=== PATIENT | male | born 1955 | race Caucasian/White ===

== ENCOUNTER 2017-09-13 20:33 | Inpatient (IN) ==
--- NOTE | 2017-09-13 20:48 | Emergency Department Note ---
SOB HPI - General Chief Complaint: Shortness of Breath/Dyspnea Stated Complaint: sob Time Seen by Provider: 09/13/17 20:43 Source: EMS Mode of arrival: EMS - History of Present Illness This patient has severe chronic COPD oxygen dependent and on BiPAP all the time. He is a DNR and has been short of breath recently and unable to speak. In the emergency room his O2 saturation is 100% on a mask. He cannot talk to me or give me any history. - Related Data Home Medications Medication Instructions Recorded Confirmed Acetaminophen [Tylenol Extra 1,000 mg PO Q6H PRN 10/02/15 09/13/17 Strength] Baclofen [Lioresal] 10 mg PO TID 10/02/15 09/13/17 Bisacodyl [Dulcolax] 10 mg MO DAILYP PRN 10/02/15 09/13/17 Carvedilol [Coreg] 12.5 mg PO BIDCC 10/02/15 09/13/17 DULoxetine HCL [Cymbalta] 60 mg PO QHS 10/02/15 09/13/17 Docusate Sodium [Colace] 100 mg PO BID 10/02/15 09/13/17 Furosemide [Lasix] 40 mg PO BID 10/02/15 09/13/17 Gabapentin 600 mg PO TID 10/02/15 09/13/17 Insulin Aspart [Novolog] 1 unit SQ .COMPLEX 10/02/15 09/13/17 Insulin Detemir [Levemir] 50 unit SQ QAM 10/02/15 09/13/17 Liraglutide [Victoza 2-Rico] 1.8 mg SC DAILY 10/02/15 09/13/17 Lisinopril [Zestril] 10 mg PO DAILY 10/02/15 09/13/17 Na Phos,M-B/Na Phos,Di-Ba [Fleets 1 dose MO DAILYP PRN 10/02/15 09/13/17 Adult] Polyethylene Glycol 3350 [Miralax] 17 gm PO DAILYP PRN 10/02/15 09/13/17 Potassium Chloride 10 meq PO DAILY 10/02/15 09/13/17 Sucralfate [Carafate] 2 gm PO BID 10/02/15 09/13/17 Travoprost Ophth Drops [Travatan Z 1 gtt OU HS 10/02/15 09/13/17 Ophth Drops] metFORMIN HCL [Fortamet] 1,000 mg PO BID 10/02/15 09/13/17 morphine SULFATE [Morphine Sulfate] 30 mg PO BID 10/02/15 09/13/17 Sennosides [Senna Laxative] 8.6 mg PO BID 01/21/16 09/13/17 Aspirin [Donna Chewable Aspirin] 81 mg PO DAILY 09/13/17 09/13/17 Budesonide [Pulmicort] 0.5 mg NEB BID 09/13/17 09/13/17 Finasteride [Proscar] 5 mg PO DAILY 09/13/17 09/13/17 HYDROcodone/APAP 5/325MG [[place] 1 - 2 tab PO PRN PRN 09/13/17 09/13/17 5-325Mg] Ipratropium/Albuterol [Duoneb] 3 ml NEB Q6HRT 09/13/17 09/13/17 Magnesium Hydroxide [Milk of 30 ml PO DAILYP PRN 09/13/17 09/13/17 Magnesia] Modafinil [Provigil] 200 mg PO DAILY 09/13/17 09/13/17 Montelukast [Singular] 10 mg PO HS 09/13/17 09/13/17 Na Phos,M-B/Na Phos,Di-Ba [Fleets 1 dose MO DAILYP PRN 09/13/17 09/13/17 Adult] Symbicort 160-4.5 Mcg Inhaler 2 puff PO BID 09/13/17 09/13/17 Tamsulosin [Flomax] 0.4 mg PO HS 09/13/17 09/13/17 acetaZOLAMIDE [Acetazolamide] 250 mg PO BID 09/13/17 09/13/17 traZODone HCL [Trazodone HCl] 50 mg PO HS 09/13/17 09/13/17 Allergies Allergy/AdvReac Type Severity Reaction Status Date / Time brimonidine AdvReac Verified 09/13/17 22:10 gentamicin AdvReac Verified 09/13/17 22:10 Review of Systems Limitations: ROS unobtainable due to patients medical condition Past Medical History - Past Medical History [facility] Narrative: Medical History Lumbar disc disease with radiculopathy (Chronic) Medical history: Reports: arthritis, CHF, COPD, coronary artery disease, DM, glaucoma, hyperlipidemia, hypertension Surgical history ED: Reports: appendectomy - Social History smoking status: Former smoker Physical Exam Limitations: altered mental status, physical limitation Head: atraumatic Eye: Present: normal appearance ENT: normal exam Neck: Present: normal inspection Chest: Present: normal inspection Respiratory: Present: other (Decreased breath sounds in general) Cardiovascular: Present: regular rate, normal rhythm, normal heart sounds Abdominal: Present: soft. Absent: distention, tenderness Skin: Present: warm, dry, intact Course Vital Signs Temperature 98.2 F 09/13/17 20:34 Pulse Rate 91 H 09/13/17 20:34 Respiratory Rate 20 09/13/17 20:34 Blood Pressure 168/73 09/13/17 20:34 Pulse Oximetry (%) 100 09/13/17 20:34 Temperature 98.2 F 09/13/17 20:34 Pulse Rate 91 H 09/13/17 20:34 Respiratory Rate 14 09/13/17 20:45 Blood Pressure 168/73 09/13/17 20:34 Pulse Oximetry (%) 100 09/13/17 20:34 Shortness of Breath/Dyspnea - [facility] Narrative Medical decision making narrative: This patient's PCO2 was 97 pH 7.2 PO2 143. We have started him on BiPAP. His chest x-ray is extremely difficult to read due to cardiomegaly that may show some infiltrates so I have started some antibiotics. Also given Solu-Medrol and a DuoNeb treatment. He will be admitted to the telemetry floor. He is a DNR patient. - Lab Data Lab results reviewed: Yes I reviewed the patient's lab results. Result diagrams: 09/13/17 20:55 09/13/17 20:55 Lab Results 09/13/17 09/13/17 09/13/17 Range/Units 20:55 20:55 20:55 WBC 12.5 H (4.5-11.0) K/mcL RBC 4.17 L (4.50-5.90) M/mcL Hgb 12.0 L (13.5-16.5) g/dL Hct 38.7 L (41.0-55.0) % MCV 92.8 (80.0-100.0) fL MCH 28.7 (26.0-34.0) pg MCHC 31.0 (31.0-36.0) g/dL RDW 17.1 H (11.5-14.5) % Plt Count 229 (140-440) K/mcL MPV 7.8 (7.4-10.4) fL Gran % 81.2 H (38.0-78.0) % Lymph % (Auto) 10.2 L (15.5-49.0) % [place] % (Auto) 7.3 (1.0-12.0) % Eos % (Auto) 1.0 (0.0-7.0) % Baso % (Auto) 0.3 (0.0-2.0) % Gran # 10.1 H (1.8-8.0) K/mcL Lymph # (Auto) 1.3 L (1.5-4.8) K/mcL [place] # (Auto) 0.9 (0.1-0.9) K/mcL Eos # (Auto) 0.1 (0.0-0.7) K/mcL Baso # (Auto) 0 (0.0-0.3) K/mcL VBG Lactic Acid 0.9 (0.5-2.2) mmol/L Sodium 135 (133-145) mmol/L Potassium 4.6 (3.3-5.1) mmol/L Chloride 95 L (96-108) mmol/L Carbon Dioxide 31 H (22-30) mmol/L Anion Gap 9.0 (8-16) BUN 26 H (8-23) mg/dl Creatinine 0.9 (0.7-1.2) mg/dl GFR Calculation 90 Glucose 265 H (70-105) mg/dL Calcium 8.7 (8.6-10.4) mg/dl Total Bilirubin 0.3 (0.0-1.0) mg/dL AST 13 (0-37) U/l ALT 19 (0-40) U/l Alkaline Phosphatase 102 (39-117) U/L Troponin T (0-0.03) ng/ml NT-Pro-B Natriuret Pep 180.2 H (0-125) pg/ml Total Protein 6.8 (5.9-8.4) gm/dL Albumin 3.5 (3.2-5.2) gm/dL Globulin 3.3 (2.2-3.7) gm/dL Albumin/Globulin Ratio 1.1 (1.0-2.3) 05//18 Range/Units 20:55 WBC (4.5-11.0) K/mcL RBC (4.50-5.90) M/mcL Hgb (13.5-16.5) g/dL Hct (41.0-55.0) % MCV (80.0-100.0) fL MCH (26.0-34.0) pg MCHC (31.0-36.0) g/dL RDW (11.5-14.5) % Plt Count (140-440) K/mcL MPV (7.4-10.4) fL Gran % (38.0-78.0) % Lymph % (Auto) (15.5-49.0) % [place] % (Auto) (1.0-12.0) % Eos % (Auto) (0.0-7.0) % Baso % (Auto) (0.0-2.0) % Gran # (1.8-8.0) K/mcL Lymph # (Auto) (1.5-4.8) K/mcL [place] # (Auto) (0.1-0.9) K/mcL Eos # (Auto) (0.0-0.7) K/mcL Baso # (Auto) (0.0-0.3) K/mcL VBG Lactic Acid (0.5-2.2) mmol/L Sodium (133-145) mmol/L Potassium (3.3-5.1) mmol/L Chloride (96-108) mmol/L Carbon Dioxide (22-30) mmol/L Anion Gap (8-16) BUN (8-23) mg/dl Creatinine (0.7-1.2) mg/dl GFR Calculation Glucose (70-105) mg/dL Calcium (8.6-10.4) mg/dl Total Bilirubin (0.0-1.0) mg/dL AST (0-37) U/l ALT (0-40) U/l Alkaline Phosphatase (39-117) U/L Troponin T < 0.01 (0-0.03) ng/ml NT-Pro-B Natriuret Pep (0-125) pg/ml Total Protein (5.9-8.4) gm/dL Albumin (3.2-5.2) gm/dL Globulin (2.2-3.7) gm/dL Albumin/Globulin Ratio (1.0-2.3) Disposition Pt seen by [facility] only: No Clinical Impression: Acute exacerbation of chronic obstructive airways disease Disposition: Xfer As Inpt ([facility]) Condition: Fair Time of Disposition: 22:13
[2017-09-13 21:33] LABS: Basophils # (Auto) 0 K/mcL (0.0-0.3); Basophils % (Auto) 0.3 % (0.0-2.0); Eosinophils # (Auto) 0.1 K/mcL (0.0-0.7); Granulocytes % (Auto) 81.2 % (38.0-78.0); Lymphocytes # (Auto) 1.3 K/mcL (1.5-4.8); Lymphocytes % (Auto) 10.2 % (15.5-49.0); Mean Cell Volume 92.8 fL (80.0-100.0); Mean Corpuscular Hemoglobin 28.7 pg (26.0-34.0); Monocytes # (Auto) 0.9 K/mcL (0.1-0.9); Monocytes % (Auto) 7.3 % (1.0-12.0); Platelet Count 229 K/mcL (140-440); RBC 4.17 M/mcL (4.50-5.90); Red Cell Distribution Width 17.1 % (11.5-14.5)
[2017-09-13 21:56] LABS: ALT/SGPT 19 U/l (0-40); Albumin 3.5 gm/dL (3.2-5.2); Albumin/Globulin Ratio 1.1 (1.0-2.3); Alkaline Phosphatase 102 U/L (39-117); Blood Urea Nitrogen 26 mg/dl (8-23); proBNP 180.2 pg/ml (0-125)
[2017-09-13] MEDS ORDERED: LEVOFLOXACIN 750 MG/150 ML BAG IV ONE (22:06)
[2017-09-13] MEDS ORDERED: methylPREDNISolone SOD SUCC 125 MG/2 ML VIAL IV ONE (22:06)
[2017-09-13] MEDS ORDERED: cefTRIAXone 1 GM VIAL IV ONE (22:06)
[2017-09-13] MEDS ORDERED: IPRATROPIUM/ALBUTEROL 3 ML AMPUL.NEB NEB ONE ×2 (22:07→23:02)
[2017-09-13] MEDS ORDERED: POLYETHYLENE GLYCOL 3350 17 GM PACKET PO PRN ×2 (22:21→23:02)
[2017-09-13] MEDS ORDERED: BISACODYL 10 MG SUPP.RECT PR PRN ×2 (22:21→23:02)
[2017-09-13] MEDS ORDERED: ACETAMINOPHEN 500 MG TABLET PO PRN ×2 (22:21→23:02)
[2017-09-13] MEDS ORDERED: HYDROcodone/APAP 5/325MG TABLET PO PRN (22:21)
[2017-09-13] MEDS ORDERED: MAGNESIUM HYDROXIDE 30 ML ORAL.SUSP PO PRN ×2 (22:21→23:02)
[2017-09-13] MEDS ORDERED: LEVOFLOXACIN 750 MG/150 ML BAG IV SCH (22:30)
--- NOTE | 2017-09-13 22:41 | Internal Med History&Physical ---
Medical - H&P: HPI Patient information: Note initiated : 09/13/17 at 10:39 pm Service Date, if different from initiated Date: [] Patient: Dangelo Alvares 62 y/o M admitted on for sob. Chief Complaint: Unarousable at care facility History of present illness: Mr. Alvares is a 62 year old M ROS unobtainable: due to mental status Medical - H&P: PMH Medical history: DM, Morbid obesity, DONNY, Chronic pain, Hypertension (by old charting only) Surgical history: Not known Pertinent family history: Not known. Social history: Reportedly lives at [place], ADLs are unknown. Smoking status: Smoker, status unknown Medical - H&P: Meds Home Medications Medication Instructions Recorded Confirmed Type Acetaminophen [Tylenol Extra 1,000 mg PO Q6H PRN 10/02/15 09/13/17 History Strength] Baclofen [Lioresal] 10 mg PO TID 10/02/15 09/13/17 History Bisacodyl [Dulcolax] 10 mg DC DAILYP PRN 10/02/15 09/13/17 History Carvedilol [Coreg] 12.5 mg PO BIDCC 10/02/15 09/13/17 History DULoxetine HCL [Cymbalta] 60 mg PO QHS 10/02/15 09/13/17 History Docusate Sodium [Colace] 100 mg PO BID 10/02/15 09/13/17 History Furosemide [Lasix] 40 mg PO BID 10/02/15 09/13/17 History Gabapentin 600 mg PO TID 10/02/15 09/13/17 History Insulin Aspart [Novolog] 1 unit SQ .COMPLEX 10/02/15 09/13/17 History Insulin Detemir [Levemir] 50 unit SQ QAM 10/02/15 09/13/17 History Liraglutide [Victoza 2-Rico] 1.8 mg SC DAILY 10/02/15 09/13/17 History Lisinopril [Zestril] 10 mg PO DAILY 10/02/15 09/13/17 History Na Phos,M-B/Na Phos,Di-Ba [Fleets 1 dose DC DAILYP PRN 10/02/15 09/13/17 History Adult] Polyethylene Glycol 3350 [Miralax] 17 gm PO DAILYP PRN 10/02/15 09/13/17 History Potassium Chloride 10 meq PO DAILY 10/02/15 09/13/17 History Sucralfate [Carafate] 2 gm PO BID 10/02/15 09/13/17 History Travoprost Ophth Drops [Travatan Z 1 gtt OU HS 10/02/15 09/13/17 History Ophth Drops] metFORMIN HCL [Fortamet] 1,000 mg PO BID 10/02/15 09/13/17 History morphine SULFATE [Morphine Sulfate] 30 mg PO BID 10/02/15 09/13/17 History Sennosides [Senna Laxative] 8.6 mg PO BID 01/21/16 09/13/17 History Aspirin [Donna Chewable Aspirin] 81 mg PO DAILY 09/13/17 09/13/17 History Budesonide [Pulmicort] 0.5 mg NEB BID 09/13/17 09/13/17 History Finasteride [Proscar] 5 mg PO DAILY 09/13/17 09/13/17 History HYDROcodone/APAP 5/325MG [[place] 1 - 2 tab PO PRN PRN 09/13/17 09/13/17 History 5-325Mg] Ipratropium/Albuterol [Duoneb] 3 ml NEB Q6HRT 09/13/17 09/13/17 History Magnesium Hydroxide [Milk of 30 ml PO DAILYP PRN 09/13/17 09/13/17 History Magnesia] Modafinil [Provigil] 200 mg PO DAILY 09/13/17 09/13/17 History Montelukast [Singular] 10 mg PO HS 09/13/17 09/13/17 History Na Phos,M-B/Na Phos,Di-Ba [Fleets 1 dose DC DAILYP PRN 09/13/17 09/13/17 History Adult] Symbicort 160-4.5 Mcg Inhaler 2 puff PO BID 09/13/17 09/13/17 History Tamsulosin [Flomax] 0.4 mg PO HS 09/13/17 09/13/17 History acetaZOLAMIDE [Acetazolamide] 250 mg PO BID 09/13/17 09/13/17 History traZODone HCL [Trazodone HCl] 50 mg PO 09/13/17 09/13/17 History Allergies Allergy/AdvReac Type Severity Reaction Status Date / Time brimonidine AdvReac Verified 09/13/17 22:10 gentamicin AdvReac Verified 09/13/17 22:10 Medical - H&P: Exam - Constitutional Vitals: Temp Pulse Resp BP Pulse Ox 98.2 F 88 16 121/65 92 09/13/17 20:34 09/13/17 22:24 09/13/17 22:24 09/13/17 22:00 09/13/17 22:24 General appearance: morbidly obese, no acute distress - Head Head exam: Present: atraumatic - Eye Additional comments: Pupils dilated and responsive to light - Expanded Eye Exam Sclera: bilateral: normal inspection - ENT ENT exam: Present: mucous membranes dry - Neck Neck exam: Present: full ROM - Respiratory Respiratory exam: Present: decreased breath sounds, prolonged expiratory phase - Cardiovascular Cardiovascular exam: Present: normal rate and rhythm - GI/Abdominal GI/Abdominal exam: Present: distended, hypoactive bowel sounds Additional comments: Multiple ecchymoses - Rectal Rectal exam: Present: deferred - Extremities Exam Extremities exam: Present: normal capillary refill - Neurological Exam Neurological exam: Present: altered - Expanded Neurological Exam Coma Scale Eye Opening: None Coma Scale Motor Response: Withdraws to Pain Coma Scale Verbal Response: Incomprehensible Coma Scale Total: 7 - Skin Skin exam: Present: dry Medical - H&P: Reslt - Labs CBC & Chem 7: 09/13/17 20:55 09/13/17 20:55 Labs: Short CBC 09/13/17 Range/Units 20:55 WBC 12.5 H (4.5-11.0) K/mcL Hgb 12.0 L (13.5-16.5) g/dL Hct 38.7 L (41.0-55.0) % Plt Count 229 (140-440) K/mcL BMP 09/13/17 20:55 Sodium 135 Potassium 4.6 Chloride 95 L Carbon Dioxide 31 H BUN 26 H Creatinine 0.9 Glucose 265 H Calcium 8.7 Cardiac Enzymes 09/13/17 Range/Units 20:55 Troponin T < 0.01 (0-0.03) ng/ml Liver Function 09/13/17 Range/Units 20:55 Total Bilirubin 0.3 (0.0-1.0) mg/dL AST 13 (0-37) U/l ALT 19 (0-40) U/l Alkaline Phosphatase 102 (39-117) U/L Albumin 3.5 (3.2-5.2) gm/dL - ABG Interpretation -: ABG interpreted by me Interpretation: respiratory acidosis Medical - H&P: A/P - Narrative A/P Narrative: Acute hypercarbic respiratory failure with associated encephalopathy complicating chronic pain and opiate use and morbid obesity with established limited goals of care (DNI) - Inpatient admission - Antibiotics for HCAP - Systemic steroids - BIPAP - VTE prophylaxis Critical care time of 45 minutes
[2017-09-13] MEDS ORDERED: 0.9 % SODIUM CHLORIDE 1,000 ML IV ONE (23:33)
[2017-09-14] MEDS ORDERED: IPRATROPIUM/ALBUTEROL 3 ML AMPUL.NEB NEB SCH (01:00)
[2017-09-14] MEDS ORDERED: ALBUTEROL SULFATE 2.5 MG/3 ML NEBULIZER ONE (01:16)
[2017-09-14] MEDS: IPRATROPIUM/ALBUTEROL 3 ML AMPUL.NEB NEB SCH ×2 (01:23→07:15)
[2017-09-14] MEDS: HYDROcodone/APAP 5/325MG TABLET PO PRN ×2 (04:10→14:21)
[2017-09-14] MEDS ORDERED: HYDROcodone/APAP 5/325MG TABLET PO ONE (04:11)
[2017-09-14 05:36] LABS: Basophils # (Auto) 0 K/mcL (0.0-0.3); Basophils % (Auto) 0 % (0.0-2.0); Eosinophils # (Auto) 0 K/mcL (0.0-0.7); Eosinophils % (Auto) 0.1 % (0.0-7.0); Granulocytes % (Auto) 93.8 % (38.0-78.0); Lymphocytes # (Auto) 0.7 K/mcL (1.5-4.8); Lymphocytes % (Auto) 5.8 % (15.5-49.0); Mean Corpuscular HGB Conc 31.1 g/dL (31.0-36.0); Mean Corpuscular Hemoglobin 28.9 pg (26.0-34.0); Monocytes # (Auto) 0 K/mcL (0.1-0.9); Monocytes % (Auto) 0.3 % (1.0-12.0); Platelet Count 243 K/mcL (140-440); RBC 4.12 M/mcL (4.50-5.90); Red Cell Distribution Width 16.3 % (11.5-14.5)
[2017-09-14 05:55] LABS: ALT/SGPT 18 U/l (0-40); Albumin 3.4 gm/dL (3.2-5.2); Albumin/Globulin Ratio 1.1 (1.0-2.3); Alkaline Phosphatase 97 U/L (39-117); Bilirubin,Direct < 0.2 mg/dL (0.0-0.3); Blood Urea Nitrogen 26 mg/dl (8-23); Gamma Glutamyl Transpeptidase 32 U/L (8-61); Uric Acid 9.8 mg/dL (2.5-8.0)
[2017-09-14] MEDS: 0.9 % SODIUM CHLORIDE 10 ML SYRINGE IV SCH ×3 (05:56→21:52)
[2017-09-14] MEDS ORDERED: 0.9 % SODIUM CHLORIDE 10 ML SYRINGE IV SCH (06:00)
[2017-09-14] MEDS ORDERED: methylPREDNISolone SOD SUCC 40 MG/ML VIAL IV SCH (06:00)
[2017-09-14] MEDS: methylPREDNISolone SOD SUCC 40 MG/ML VIAL IV SCH ×3 (06:31→21:52)
--- NOTE | 2017-09-14 06:35 | XRay Report ---
INDICATION: Dyspnea TECHNIQUE: AP chest x-ray,portable COMPARISON: 08/24/2013, 08/23/2013, 01/31/2010 FINDINGS:Marked cardiomegaly. Diffuse pulmonary parenchymal infiltrates. Appearance consistent with congestive heart failure. No pulmonary parenchymal consolidation. No significant pleural effusion identified on AP radiograph. IMPRESSION: Cardiomegaly and findings consistent with congestive heart failure Interpreted and Authenticated by: Nguyễn Rich 09/14/17
[2017-09-14] MEDS ORDERED: INSULIN REGULAR, HUMAN 1 UNIT/0.01 ML UNIT SQ SCH (07:30)
--- NOTE | 2017-09-14 07:45 | Internal Med Progress Note ---
Medical - PN: Subj Patient information: Note initiated : 09/14/17 at 7:43 am Service Date, if different from initiated Date: [] Patient: Dangelo Alvares 62 y/o M admitted on 09/13/17 for sob. Chief Complaint: Patient is alert and cooperative. Patient is oriented to place and time. Patient reports recently changing BIPAP mask. Patient denies cough, fever or chills. Patient is hungry. - Constitutional Vitals: Vital Signs Temp Pulse Resp BP Pulse Ox 98.2 F 84 13 143/81 94 09/14/17 04:00 09/14/17 04:00 09/14/17 04:00 09/14/17 04:00 09/14/17 07:10 Period Temp Pulse Resp BP Sys/Fink Pulse Ox Last 24 Hr 97.9 F-98.2 F 71-91 8-23 75-168/47-81 84-100 Intake and Output 09/13/17 09/14/17 09/14/17 21:59 05:59 13:59 Intake Total 1510 / 1510 Output Total 1077 / 1077 Balance 433 / 433 Weight 402 lb 396 lb 12.8 oz Intake & Output: Intake & Output 09/13/17 09/14/17 09/14/17 21:59 05:59 13:59 Intake Total 1510 / 1510 Output Total 1077 / 1077 Balance 433 / 433 Weight 402 lb 396 lb 12.8 oz Intake: IV 1150 / 1150 Sodium Chloride 0.9% 1,000 ml @ 1000 / 1000 Wide Open IV BOLUS ONE Rx#: [id number] Oral 360 / 360 Output: Urine Catheter Amount 1075 / 1075 # of times incontinent of urine 2 / 2 General appearance: morbidly obese, no acute distress - Neck Neck exam: Present: full ROM - Respiratory Respiratory exam: Present: decreased breath sounds, prolonged expiratory phase - Cardiovascular Cardiovascular exam: Present: normal rate and rhythm - GI/Abdominal GI/Abdominal exam: Present: distended, hypoactive bowel sounds - Extremities Exam Extremities exam: Present: normal capillary refill Additional comments: Brawny induration LEs - Neurological Exam Neurological exam: Present: alert, oriented X3 Medical - PN: Obj Da - Labs CBC & Chem 7: 09/14/17 04:30 09/14/17 04:30 Labs: Abnormal Lab Results 09/14/17 09/14/17 09/13/17 04:30 04:30 20:55 WBC 11.5 H RBC 4.12 L Hgb 11.9 L Hct 38.3 L RDW 16.3 H Gran % 93.8 H Lymph % (Auto) 5.8 L [place] % (Auto) 0.3 L Gran # 10.8 H Lymph # (Auto) 0.7 L [place] # (Auto) 0 L Chloride 95 L Carbon Dioxide 31 H 31 H BUN 26 H 26 H Glucose 292 H 265 H Uric Acid 9.8 H Calcium 8.5 L Phosphorus 2.4 L NT-Pro-B Natriuret Pep 180.2 H 09/13/17 20:55 WBC 12.5 H RBC 4.17 L Hgb 12.0 L Hct 38.7 L RDW 17.1 H Gran % 81.2 H Lymph % (Auto) 10.2 L [place] % (Auto) Gran # 10.1 H Lymph # (Auto) 1.3 L [place] # (Auto) Chloride Carbon Dioxide BUN Glucose Uric Acid Calcium Phosphorus NT-Pro-B Natriuret Pep Meds: Medications Acetaminophen (Tylenol) 1,000 mg PO Q6HP PRN PRN Reason: Pain Hydrocodone Bitart/Acetaminophen ([place] 5/325mg) 1 - 2 tab PO Q4HP PRN PRN Reason: Pain Last Admin: 09/14/17 04:10 Dose: 2 tab Albuterol/Ipratropium (Duoneb) 3 ml NEB Q6HRT [facility] Last Admin: 09/14/17 07:15 Dose: 3 ml Aspirin (Aspirin) 81 mg PO DAILY [facility] Baclofen (Lioresal) 10 mg PO TID [facility] Bisacodyl (Dulcolax) 10 mg GA DAILYP PRN PRN Reason: Constipation Carvedilol (Coreg) 12.5 mg PO BIDCC [facility] Docusate Sodium (Colace) 100 mg PO BID [facility] Duloxetine HCl (Cymbalta) 60 mg PO HS [facility] Enoxaparin Sodium (Lovenox) 40 mg SQ DAILY [facility] Finasteride (Proscar) 5 mg PO DAILY [facility] Gabapentin (Neurontin) 600 mg PO TID [facility] Levofloxacin (Levaquin) 750 mg in 150 mls @ 100 mls/hr IV Q24H [facility] Insulin Human NPH (Humalin N) 40 unit SQ BIDAC [facility] Insulin Human Regular (Humulin R) 10 unit SQ TIDAC [facility] Lisinopril (Zestril) 10 mg PO DAILY [facility] Magnesium Hydroxide (Milk Of Magnesia) 30 ml PO DAILYP PRN PRN Reason: Constipation Metformin HCl (Glucophage) 1,000 mg PO BIDCC [facility] Methylprednisolone Sodium Succinate (Solu-Medrol) 40 mg IV Q8 [facility] Last Admin: 09/14/17 06:31 Dose: 40 mg Modafinil (Provigil) 200 mg PO DAILY [facility] Montelukast Sodium (Singular) 10 mg PO HS [facility] Morphine Sulfate (Ms Contin) 30 mg PO BID [facility] Polyethylene Glycol (Miralax) 17 gm PO DAILYP PRN PRN Reason: Constipation Potassium Chloride (Kdur) 10 meq PO QAMCC [facility] Senna (Senokot) 1 tab PO BID [facility] Sodium Chloride (Saline Flush) 10 ml IV Q8 [facility] Last Admin: 09/14/17 05:56 Dose: 10 ml Sucralfate (Carafate) 2 gm PO BID [facility] Tamsulosin HCl (Flomax) 0.4 mg PO HS [facility] Travoprost (Travatan Z Ophth Drops) 1 gtt OU HS [facility] Trazodone HCl (Desyrel) 50 mg PO HS [facility] Medical - PN: A/P - Time Spent With Patient Total time spent is greater than 50% in coordination of care (as documented) at patient's floor/unit and/or counseling patient: - Narrative A/P Narrative: Acute hypercarbic respiratory failure (improved) complicated by hypotension ( resolved). Likely secondary to pneumonia(?), change in BIPAP mask and opiates. - Continue antibiotics - Mobilize with transfers - Trend labs - Research home/facility mask use - Expect return to [facility] care facility 09/15/17? Medical - PN: Qual - VTE Deep Vein Thrombosis/Pulmonary Embolism Present on Admission: No
[2017-09-14] MEDS ORDERED: CARVEDILOL 6.25 MG TABLET PO SCH (08:00)
[2017-09-14] MEDS: ENOXAPARIN 40 MG/0.4 ML SYRINGE SQ SCH (08:21)
[2017-09-14] MEDS: INSULIN REGULAR, HUMAN 1 UNIT/0.01 ML UNIT SQ SCH ×3 (08:21→17:20)
[2017-09-14] MEDS: INSULIN NPH, HUMAN 1 UNIT/0.01 ML UNIT SQ SCH ×2 (08:21→17:20)
[2017-09-14] MEDS: GABAPENTIN 300 MG CAPSULE PO SCH ×3 (08:22→20:35)
[2017-09-14] MEDS: morphine 30 MG TAB.SR.12H PO SCH ×2 (08:22→20:36)
[2017-09-14] MEDS: metFORMIN 500 MG TABLET PO SCH ×2 (08:22→17:19)
[2017-09-14] MEDS: CARVEDILOL 6.25 MG TABLET PO SCH ×2 (08:22→17:20)
[2017-09-14] MEDS: MODAFINIL 200 MG TABLET PO SCH (08:22)
[2017-09-14] MEDS: BACLOFEN 10 MG TABLET PO SCH ×3 (08:23→20:35)
[2017-09-14] MEDS: DOCUSATE SODIUM 100 MG CAPSULE PO SCH ×2 (08:23→20:37)
[2017-09-14] MEDS: ASPIRIN 81 MG TAB.CHEW PO SCH (08:23)
[2017-09-14] MEDS: SENNOSIDES 1 TABLET PO SCH ×2 (08:23→20:37)
[2017-09-14] MEDS: FINASTERIDE 5 MG TABLET PO SCH (08:23)
[2017-09-14] MEDS: SUCRALFATE 1 GM TABLET PO SCH ×2 (08:23→20:34)
[2017-09-14] MEDS: LISINOPRIL 20 MG TABLET PO SCH (08:23)
[2017-09-14] MEDS ORDERED: FINASTERIDE 5 MG TABLET PO SCH (09:00)
[2017-09-14] MEDS ORDERED: DOCUSATE SODIUM 100 MG CAPSULE PO SCH (09:00)
[2017-09-14] MEDS ORDERED: SUCRALFATE 1 GM TABLET PO SCH (09:00)
[2017-09-14] MEDS ORDERED: BACLOFEN 10 MG TABLET PO SCH (09:00)
[2017-09-14] MEDS ORDERED: NON FORMULARY MEDICATION 1 DOSE MISCELL (Gabapentin [Gabapentin] 600 MG) PO SCH (09:00)
[2017-09-14] MEDS ORDERED: MORPHINE SULFATE 30 MG PO SCH (09:00)
[2017-09-14] MEDS ORDERED: ASPIRIN 81 MG TAB.CHEW PO SCH (09:00)
[2017-09-14] MEDS ORDERED: NON FORMULARY MEDICATION 1 DOSE MISCELL (Potassium Chloride [Potassium Chloride] 10 MEQ) PO SCH (09:00)
[2017-09-14] MEDS ORDERED: INSULIN DETEMIR 50 UNIT SQ SCH ×2 (09:00)
[2017-09-14] MEDS ORDERED: SENNOSIDES 1 TABLET PO SCH (09:00)
[2017-09-14] MEDS ORDERED: ENOXAPARIN 40 MG/0.4 ML SYRINGE SQ SCH (09:00)
[2017-09-14] MEDS ORDERED: MODAFINIL 200 MG TABLET PO SCH (09:00)
[2017-09-14] MEDS ORDERED: METFORMIN HCL 1000 MG PO SCH (09:00)
[2017-09-14] MEDS ORDERED: INSULIN GLARGINE, HUMAN 1 UNIT/0.01 ML SQ SCH (09:00)
[2017-09-14] MEDS ORDERED: LISINOPRIL 20 MG TABLET PO SCH (09:00)
[2017-09-14] MEDS: POTASSIUM CHLORIDE 10 MEQ TABLET PO SCH (09:10)
[2017-09-14] MEDS ORDERED: IPRATROPIUM/ALBUTEROL 3 ML AMPUL.NEB NEB PRN (11:36)
[2017-09-14] MEDS: LEVOFLOXACIN 750 MG/150 ML BAG IV SCH (16:09)
[2017-09-14] MEDS: INSULIN LISPRO 1 UNIT/0.01 ML UNIT SQ SCH ×2 (17:20→20:36)
[2017-09-14] MEDS: MONTELUKAST 10 MG TABLET PO SCH (20:35)
[2017-09-14] MEDS: TAMSULOSIN 0.4 MG CAPSULE PO SCH (20:35)
[2017-09-14] MEDS: DULoxetine 30 MG CAPSULE PO SCH (20:35)
[2017-09-14] MEDS: traZODone HCL 50 MG TABLET PO SCH (20:36)
[2017-09-14] MEDS: TRAVOPROST OPHTH DROPS BOTTLE 2.5ML OU SCH (20:43)
[2017-09-14] MEDS ORDERED: TRAVOPROST OPHTH DROPS BOTTLE 2.5ML OU SCH (21:00)
[2017-09-14] MEDS ORDERED: MONTELUKAST 10 MG TABLET PO SCH (21:00)
[2017-09-14] MEDS ORDERED: traZODone HCL 50 MG TABLET PO SCH (21:00)
[2017-09-14] MEDS ORDERED: TAMSULOSIN 0.4 MG CAPSULE PO SCH (21:00)
[2017-09-14] MEDS ORDERED: NON FORMULARY MEDICATION 1 DOSE MISCELL (Duloxetine Hcl [Cymbalta] 60 MG) PO SCH (21:00)
[2017-09-15] MEDS ORDERED: HALOPERIDOL LACTATE 5 MG/ML VIAL ONE (00:09)
[2017-09-15] MEDS ORDERED: HALOPERIDOL LACTATE 5 MG/ML VIAL IV ONE (00:11)
[2017-09-15] MEDS ORDERED: OLANZapine 2.5 MG TABLET PO PRN (00:13)
[2017-09-15 05:51] LABS: Basophils # (Auto) 0 K/mcL (0.0-0.3); Basophils % (Auto) 0.1 % (0.0-2.0); Eosinophils # (Auto) 0 K/mcL (0.0-0.7); Eosinophils % (Auto) 0 % (0.0-7.0); Granulocytes % (Auto) 84.3 % (38.0-78.0); Lymphocytes % (Auto) 10.6 % (15.5-49.0); Mean Cell Volume 90.5 fL (80.0-100.0); Mean Corpuscular HGB Conc 31.4 g/dL (31.0-36.0); Mean Corpuscular Hemoglobin 28.4 pg (26.0-34.0); Monocytes # (Auto) 0.5 K/mcL (0.1-0.9); Platelet Count 284 K/mcL (140-440); RBC 4.32 M/mcL (4.50-5.90); Red Cell Distribution Width 16.6 % (11.5-14.5)
[2017-09-15] MEDS: 0.9 % SODIUM CHLORIDE 10 ML SYRINGE IV SCH ×3 (05:57→21:52)
[2017-09-15] MEDS: methylPREDNISolone SOD SUCC 40 MG/ML VIAL IV SCH ×3 (05:57→21:51)
[2017-09-15] MEDS: metFORMIN 500 MG TABLET PO SCH ×2 (07:49→16:54)
[2017-09-15] MEDS: INSULIN REGULAR, HUMAN 1 UNIT/0.01 ML UNIT SQ SCH ×3 (07:49→16:55)
[2017-09-15] MEDS: POTASSIUM CHLORIDE 10 MEQ TABLET PO SCH (07:49)
[2017-09-15] MEDS: INSULIN LISPRO 1 UNIT/0.01 ML UNIT SQ SCH ×4 (07:49→21:15)
[2017-09-15] MEDS: CARVEDILOL 6.25 MG TABLET PO SCH ×2 (07:49→16:54)
[2017-09-15] MEDS: morphine 30 MG TAB.SR.12H PO SCH ×2 (08:16→21:15)
[2017-09-15] MEDS: GABAPENTIN 300 MG CAPSULE PO SCH ×3 (08:16→21:15)
[2017-09-15] MEDS: LISINOPRIL 20 MG TABLET PO SCH (08:17)
[2017-09-15] MEDS: SUCRALFATE 1 GM TABLET PO SCH ×2 (08:17→21:15)
[2017-09-15] MEDS: DOCUSATE SODIUM 100 MG CAPSULE PO SCH ×2 (08:18→21:16)
[2017-09-15] MEDS: FINASTERIDE 5 MG TABLET PO SCH (08:18)
[2017-09-15] MEDS: MODAFINIL 200 MG TABLET PO SCH (08:18)
[2017-09-15] MEDS: ASPIRIN 81 MG TAB.CHEW PO SCH (08:18)
[2017-09-15] MEDS: SENNOSIDES 1 TABLET PO SCH ×2 (08:18→21:17)
[2017-09-15] MEDS: INSULIN NPH, HUMAN 1 UNIT/0.01 ML UNIT SQ SCH ×2 (08:19→16:54)
[2017-09-15] MEDS: ENOXAPARIN 40 MG/0.4 ML SYRINGE SQ SCH (08:19)
[2017-09-15] MEDS: BACLOFEN 10 MG TABLET PO SCH ×3 (08:19→21:17)
[2017-09-15] MEDS: LEVOFLOXACIN 750 MG/150 ML BAG IV SCH (08:49)
--- NOTE | 2017-09-15 09:59 | Internal Med Progress Note ---
Medical - PN: Subj Patient information: Note initiated : 09/15/17 at 9:57 am Service Date, if different from initiated Date: [] Patient: Dangelo Alvares 62 y/o M admitted on 09/13/17 for SOB/Hypercarbic Respiratory Failure. Chief Complaint: [] Interval history: 62-year-old with morbid obesity and obstructive sleep apnea admitted with hypercapnic respiratory failure 09/15-patient doing better. No overnight events. Improved confusion delirium. Status post 1 dose Haldol. On 2 L oxygen. DC Short's catheter today. Continue physical therapy. Repeat ABGs today. Continue home medications for pre-existing medical issues. Anticipate transfer to medical floor in 24 hours. - Constitutional Vitals: Vital Signs Temp Pulse Resp BP Pulse Ox 98.0 F 91 H 24 H 184/109 98 09/15/17 07:52 09/15/17 07:52 09/15/17 07:52 09/15/17 07:52 09/15/17 07:52 Period Temp Pulse Resp BP Sys/Fink Pulse Ox Last 24 Hr 96.9 F-98.8 F 73-102 12-24 133-205/82-109 90-98 Intake and Output 09/14/17 09/15/17 09/15/17 21:59 05:59 13:59 Intake Total 450 / 450 260 / 260 480 / 480 Output Total 1775 / 1775 800 / 800 Balance -1325 / -1325 -540 / -540 480 / 480 Weight 396 lb 4 oz Intake & Output: Intake & Output 09/14/17 09/15/17 09/15/17 21:59 05:59 13:59 Intake Total 450 / 450 260 / 260 480 / 480 Output Total 1775 / 1775 800 / 800 Balance -1325 / -1325 -540 / -540 480 / 480 Weight 396 lb 4 oz Intake: IV 150 / 150 Oral 300 / 300 260 / 260 480 / 480 Output: Urine Catheter Amount 1775 / 1775 800 / 800 Other: Meal Dinner Breakfast Percent of Meal Consumed 25% 100% Feeding Ability Independent # Bowel Movements 0 General appearance: morbidly obese, no acute distress Exam: Alert Foleys draining clear urine nonlabored breathing Improved anxiety No telemetry events Medical - PN: Obj Da - Labs CBC & Chem 7: 09/15/17 04:06 09/14/17 04:30 Labs: Abnormal Lab Results 09/15/17 09/14/17 09/14/17 04:06 04:30 04:30 WBC 11.5 H RBC 4.32 L 4.12 L Hgb 12.3 L 11.9 L Hct 39.1 L 38.3 L RDW 16.6 H 16.3 H Gran % 84.3 H 93.8 H Lymph % (Auto) 10.6 L 5.8 L [place] % (Auto) 0.3 L Gran # 10.8 H Lymph # (Auto) 1.0 L 0.7 L [place] # (Auto) 0 L Chloride Carbon Dioxide 31 H BUN 26 H Glucose 292 H Uric Acid 9.8 H Calcium 8.5 L Phosphorus 2.4 L NT-Pro-B Natriuret Pep 09/13/17 09/13/17 20:55 20:55 WBC 12.5 H RBC 4.17 L Hgb 12.0 L Hct 38.7 L RDW 17.1 H Gran % 81.2 H Lymph % (Auto) 10.2 L [place] % (Auto) Gran # 10.1 H Lymph # (Auto) 1.3 L [place] # (Auto) Chloride 95 L Carbon Dioxide 31 H BUN 26 H Glucose 265 H Uric Acid Calcium Phosphorus NT-Pro-B Natriuret Pep 180.2 H Meds: Medications Acetaminophen (Tylenol) 1,000 mg PO Q6HP PRN PRN Reason: Pain Hydrocodone Bitart/Acetaminophen ([place] 5/325mg) 1 - 2 tab PO Q4HP PRN PRN Reason: Pain Last Admin: 09/14/17 14:21 Dose: 1 tab Albuterol/Ipratropium (Duoneb) 3 ml NEB Q6HP PRN PRN Reason: Wheezing Aspirin (Aspirin) 81 mg PO DAILY [facility] Last Admin: 09/15/17 08:18 Dose: 81 mg Baclofen (Lioresal) 10 mg PO TID [facility] Last Admin: 09/15/17 08:19 Dose: 10 mg Bisacodyl (Dulcolax) 10 mg [place] DAILYP PRN PRN Reason: Constipation Carvedilol (Coreg) 12.5 mg PO BIDCC [facility] Last Admin: 09/15/17 07:49 Dose: 12.5 mg Diagnostic Test (Pha) (Accu-Chek) 1 each FS ACHS [facility] Last Admin: 09/15/17 07:18 Dose: 1 each Docusate Sodium (Colace) 100 mg PO BID [facility] Last Admin: 09/15/17 08:18 Dose: 100 mg Duloxetine HCl (Cymbalta) 60 mg PO HS [facility] Last Admin: 09/14/17 20:35 Dose: 60 mg Enoxaparin Sodium (Lovenox) 40 mg SQ DAILY [facility] Last Admin: 09/15/17 08:19 Dose: 40 mg Finasteride (Proscar) 5 mg PO DAILY [facility] Last Admin: 09/15/17 08:18 Dose: 5 mg Gabapentin (Neurontin) 600 mg PO TID [facility] Last Admin: 09/15/17 08:16 Dose: 600 mg Levofloxacin (Levaquin) 750 mg in 150 mls @ 100 mls/hr IV Q24H [facility] Last Admin: 09/15/17 08:49 Dose: 100 mls/hr Insulin Human Lispro (Humalog) 0 unit SQ [facility] PRN Reason: Protocol Last Admin: 09/15/17 07:49 Dose: 10 unit Insulin Human NPH (Humalin N) 40 unit SQ BIDAC [facility] Last Admin: 09/15/17 08:19 Dose: 40 unit Insulin Human Regular (Humulin R) 10 unit SQ TIDAC [facility] Last Admin: 09/15/17 07:49 Dose: 10 unit Lisinopril (Zestril) 10 mg PO DAILY [facility] Last Admin: 09/15/17 08:17 Dose: 10 mg Magnesium Hydroxide (Milk Of Magnesia) 30 ml PO DAILYP PRN PRN Reason: Constipation Metformin HCl (Glucophage) 1,000 mg PO BIDCC [facility] Last Admin: 09/15/17 07:49 Dose: 1,000 mg Methylprednisolone Sodium Succinate (Solu-Medrol) 40 mg IV Q8 [facility] Last Admin: 09/15/17 05:57 Dose: 40 mg Modafinil (Provigil) 200 mg PO DAILY [facility] Last Admin: 09/15/17 08:18 Dose: 200 mg Montelukast Sodium (Singular) 10 mg PO HS [facility] Last Admin: 09/14/17 20:35 Dose: 10 mg Morphine Sulfate (Ms Contin) 30 mg PO BID [facility] Last Admin: 09/15/17 08:16 Dose: 30 mg Olanzapine (Zyprexa) 2.5 - 5 mg PO Q6HP PRN PRN Reason: Agitation Polyethylene Glycol (Miralax) 17 gm PO DAILYP PRN PRN Reason: Constipation Potassium Chloride (Kdur) 10 meq PO QAMCC [facility] Last Admin: 09/15/17 07:49 Dose: 10 meq Senna (Senokot) 1 tab PO BID [facility] Last Admin: 09/15/17 08:18 Dose: 1 tab Sodium Chloride (Saline Flush) 10 ml IV Q8 [facility] Last Admin: 09/15/17 05:57 Dose: 10 ml Sucralfate (Carafate) 2 gm PO BID [facility] Last Admin: 09/15/17 08:17 Dose: 2 gm Tamsulosin HCl (Flomax) 0.4 mg PO [facility] Last Admin: 09/14/17 20:35 Dose: 0.4 mg Travoprost (Travatan Z Ophth Drops) 1 gtt OU [facility] Last Admin: 09/14/17 20:43 Dose: Not Given Trazodone HCl (Desyrel) 50 mg PO [facility] Last Admin: 09/14/17 20:36 Dose: 50 mg Medical - PN: A/P - Time Spent With Patient Total time spent is greater than 50% in coordination of care (as documented) at patient's floor/unit and/or counseling patient: 25 - 35 minutes - Narrative A/P Narrative: * Acute hypercarbic respiratory failure -slight improvement noted. Continue noninvasive ventilation as indicated. Reviewed ABGs today. * Mental status change secondary to above clinically improving * Neuropathy on gabapentin * BPH on finasteride * Chronic pain on MS Contin * DM type II on metformin/ panel insulin * Hypertension on lisinopril/Coreg * DONNY on CPAP * Anxiety disorder on Cymbalta * DVT prophylaxis on enoxaparin DNR * Plan * Repeat ABGs * Switch to oral steroids * pre-existing medical condition management meds * physical therapy * DC Short's catheter * RT to Evaluate home CPAP for possible nasal attachment malpositioning Medical - PN: Qual - VTE Deep Vein Thrombosis/Pulmonary Embolism Present on Admission: No
[2017-09-15] MEDS: DULoxetine 30 MG CAPSULE PO SCH (21:15)
[2017-09-15] MEDS: TAMSULOSIN 0.4 MG CAPSULE PO SCH (21:16)
[2017-09-15] MEDS: traZODone HCL 50 MG TABLET PO SCH (21:16)
[2017-09-15] MEDS: MONTELUKAST 10 MG TABLET PO SCH (21:16)
[2017-09-15] MEDS: TRAVOPROST OPHTH DROPS BOTTLE 2.5ML OU SCH (21:17)
[2017-09-16 05:00] LABS: Basophils # (Auto) 0 K/mcL (0.0-0.3); Basophils % (Auto) 0 % (0.0-2.0); Eosinophils # (Auto) 0 K/mcL (0.0-0.7); Eosinophils % (Auto) 0 % (0.0-7.0); Granulocytes % (Auto) 85.8 % (38.0-78.0); Lymphocytes # (Auto) 0.9 K/mcL (1.5-4.8); Lymphocytes % (Auto) 8.1 % (15.5-49.0); Mean Corpuscular HGB Conc 30.8 g/dL (31.0-36.0); Monocytes # (Auto) 0.7 K/mcL (0.1-0.9); Monocytes % (Auto) 6.1 % (1.0-12.0); Platelet Count 335 K/mcL (140-440); RBC 4.18 M/mcL (4.50-5.90); Red Cell Distribution Width 16.3 % (11.5-14.5)
[2017-09-16 05:21] LABS: ALT/SGPT 15 U/l (0-40); Alkaline Phosphatase 83 U/L (39-117); Bilirubin,Direct < 0.2 mg/dL (0.0-0.3); Blood Urea Nitrogen 32 mg/dl (8-23); Gamma Glutamyl Transpeptidase 30 U/L (8-61); Uric Acid 8.1 mg/dL (2.5-8.0)
[2017-09-16] MEDS: methylPREDNISolone SOD SUCC 40 MG/ML VIAL IV SCH ×3 (05:31→21:58)
[2017-09-16] MEDS: 0.9 % SODIUM CHLORIDE 10 ML SYRINGE IV SCH ×3 (05:32→20:46)
[2017-09-16] MEDS ORDERED: predniSONE 20 MG TABLET PO SCH (08:00)
[2017-09-16] MEDS: INSULIN REGULAR, HUMAN 1 UNIT/0.01 ML UNIT SQ SCH ×3 (08:19→17:33)
[2017-09-16] MEDS: INSULIN LISPRO 1 UNIT/0.01 ML UNIT SQ SCH ×4 (08:20→20:46)
[2017-09-16] MEDS: INSULIN NPH, HUMAN 1 UNIT/0.01 ML UNIT SQ SCH ×2 (08:20→17:33)
[2017-09-16] MEDS: CARVEDILOL 6.25 MG TABLET PO SCH (08:31)
[2017-09-16] MEDS: POTASSIUM CHLORIDE 10 MEQ TABLET PO SCH (08:31)
[2017-09-16] MEDS: metFORMIN 500 MG TABLET PO SCH ×2 (08:31→17:34)
[2017-09-16] MEDS: SENNOSIDES 1 TABLET PO SCH ×2 (08:31→20:45)
[2017-09-16] MEDS: SUCRALFATE 1 GM TABLET PO SCH ×2 (08:32→20:43)
[2017-09-16] MEDS: ASPIRIN 81 MG TAB.CHEW PO SCH (08:32)
[2017-09-16] MEDS: LISINOPRIL 20 MG TABLET PO SCH (08:32)
[2017-09-16] MEDS: FINASTERIDE 5 MG TABLET PO SCH (08:33)
[2017-09-16] MEDS: GABAPENTIN 300 MG CAPSULE PO SCH ×3 (08:34→20:43)
[2017-09-16] MEDS: DOCUSATE SODIUM 100 MG CAPSULE PO SCH ×2 (08:34→20:44)
[2017-09-16] MEDS: BACLOFEN 10 MG TABLET PO SCH ×3 (08:34→20:45)
[2017-09-16] MEDS: ENOXAPARIN 40 MG/0.4 ML SYRINGE SQ SCH (08:34)
[2017-09-16] MEDS: morphine 30 MG TAB.SR.12H PO SCH ×2 (08:34→20:44)
[2017-09-16] MEDS: MODAFINIL 200 MG TABLET PO SCH (08:36)
[2017-09-16] MEDS: LEVOFLOXACIN 750 MG/150 ML BAG IV SCH (08:36)
--- NOTE | 2017-09-16 10:26 | Internal Med Progress Note ---
Medical - PN: Subj Patient information: Note initiated : 09/16/17 at 10:23 am Service Date, if different from initiated Date: [] Patient: Dangelo Alvares 62 y/o M admitted on 09/13/17 for SOB/Hypercarbic Respiratory Failure. Chief Complaint: [] Interval history: 62-year-old with morbid obesity and obstructive sleep apnea admitted with hypercapnic respiratory failure 09/15-patient doing better. No overnight events. Improved confusion delirium. Status post 1 dose Haldol. On 2 L oxygen. DC Short's catheter today. Continue physical therapy. Repeat ABGs today. Continue home medications for pre-existing medical issues. Anticipate transfer to medical floor in 24 hours. 09/16-patient doing a lot better. No overnight events. No concerns per staff. Denies fever chills or worsening shortness of breath. Transfer to medical floor today. No overnight confusion or delirium episodes. White count 11,000. - Constitutional Vitals: Vital Signs Temp Pulse Resp BP Pulse Ox 97.2 F 72 14 152/93 96 09/16/17 03:59 09/16/17 04:54 09/16/17 04:54 09/16/17 03:59 09/16/17 04:54 Period Temp Pulse Resp BP Sys/Fink Pulse Ox Last 24 Hr 97.1 F-97.8 F 72-101 11-22 138-164/67-104 91-100 Intake and Output 09/15/17 09/16/17 09/16/17 21:59 05:59 13:59 Intake Total 800 / 800 300 / 300 240 / 240 Output Total 850 / 850 650 / 650 525 / 525 Balance -50 / -50 -350 / -350 -285 / -285 Weight 392 lb 14.4 oz Intake & Output: Intake & Output 09/15/17 09/16/17 09/16/17 21:59 05:59 13:59 Intake Total 800 / 800 300 / 300 240 / 240 Output Total 850 / 850 650 / 650 525 / 525 Balance -50 / -50 -350 / -350 -285 / -285 Weight 392 lb 14.4 oz Intake: Oral 800 / 800 300 / 300 240 / 240 Output: Void Amount 850 / 850 650 / 650 525 / 525 Other: Meal Dinner Breakfast Percent of Meal Consumed 100% 100% # Voids 1 General appearance: morbidly obese, no acute distress Exam: Alert oriented no anxiety pendulous abdomen Nonlabored breathing Medical - PN: Obj Da - Labs CBC & Chem 7: 09/16/17 03:30 09/16/17 03:30 Labs: Abnormal Lab Results 09/16/17 09/16/17 09/15/17 03:30 03:30 04:06 WBC RBC 4.18 L 4.32 L Hgb 11.7 L 12.3 L Hct 38.0 L 39.1 L MCHC 30.8 L RDW 16.3 H 16.6 H Gran % 85.8 H 84.3 H Lymph % (Auto) 8.1 L 10.6 L [place] % (Auto) Gran # 9.5 H Lymph # (Auto) 0.9 L 1.0 L [place] # (Auto) Chloride 95 L Carbon Dioxide BUN 32 H Glucose 266 H Uric Acid 8.1 H Calcium 8.5 L Phosphorus 1.8 L NT-Pro-B Natriuret Pep Albumin 3.0 L Triglycerides 155 H 09/14/17 09/14/17 09/13/17 04:30 04:30 20:55 WBC 11.5 H RBC 4.12 L Hgb 11.9 L Hct 38.3 L MCHC RDW 16.3 H Gran % 93.8 H Lymph % (Auto) 5.8 L [place] % (Auto) 0.3 L Gran # 10.8 H Lymph # (Auto) 0.7 L [place] # (Auto) 0 L Chloride 95 L Carbon Dioxide 31 H 31 H BUN 26 H 26 H Glucose 292 H 265 H Uric Acid 9.8 H Calcium 8.5 L Phosphorus 2.4 L NT-Pro-B Natriuret Pep 180.2 H Albumin Triglycerides 09/13/17 20:55 WBC 12.5 H RBC 4.17 L Hgb 12.0 L Hct 38.7 L MCHC RDW 17.1 H Gran % 81.2 H Lymph % (Auto) 10.2 L [place] % (Auto) Gran # 10.1 H Lymph # (Auto) 1.3 L [place] # (Auto) Chloride Carbon Dioxide BUN Glucose Uric Acid Calcium Phosphorus NT-Pro-B Natriuret Pep Albumin Triglycerides Meds: Medications Acetaminophen (Tylenol) 1,000 mg PO Q6HP PRN PRN Reason: Pain Hydrocodone Bitart/Acetaminophen ([place] 5/325mg) 1 - 2 tab PO Q4HP PRN PRN Reason: Pain Last Admin: 09/14/17 14:21 Dose: 1 tab Albuterol/Ipratropium (Duoneb) 3 ml NEB Q6HP PRN PRN Reason: Wheezing Aspirin (Aspirin) 81 mg PO DAILY [facility] Last Admin: 09/16/17 08:32 Dose: 81 mg Baclofen (Lioresal) 10 mg PO TID [facility] Last Admin: 09/16/17 08:34 Dose: 10 mg Bisacodyl (Dulcolax) 10 mg [place] DAILYP PRN PRN Reason: Constipation Carvedilol (Coreg) 12.5 mg PO BIDCC [facility] Last Admin: 09/16/17 08:31 Dose: 12.5 mg Diagnostic Test (Pha) (Accu-Chek) 1 each FS ACHS [facility] Last Admin: 09/16/17 08:21 Dose: 1 each Docusate Sodium (Colace) 100 mg PO BID [facility] Last Admin: 09/16/17 08:34 Dose: 100 mg Duloxetine HCl (Cymbalta) 60 mg PO HS [facility] Last Admin: 09/15/17 21:15 Dose: 60 mg Enoxaparin Sodium (Lovenox) 40 mg SQ DAILY [facility] Last Admin: 09/16/17 08:34 Dose: 40 mg Finasteride (Proscar) 5 mg PO DAILY [facility] Last Admin: 09/16/17 08:33 Dose: 5 mg Gabapentin (Neurontin) 600 mg PO TID [facility] Last Admin: 09/16/17 08:34 Dose: 600 mg Levofloxacin (Levaquin) 750 mg in 150 mls @ 100 mls/hr IV Q24H [facility] Last Admin: 09/16/17 08:36 Dose: 100 mls/hr Insulin Human Lispro (Humalog) 0 unit SQ ACHS [facility] PRN Reason: Protocol Last Admin: 09/16/17 08:20 Dose: 8 unit Insulin Human NPH (Humalin N) 40 unit SQ BIDAC [facility] Last Admin: 09/16/17 08:20 Dose: 40 unit Insulin Human Regular (Humulin R) 10 unit SQ TIDAC [facility] Last Admin: 09/16/17 08:19 Dose: 10 unit Lisinopril (Zestril) 10 mg PO DAILY [facility] Last Admin: 09/16/17 08:32 Dose: 10 mg Magnesium Hydroxide (Milk Of Magnesia) 30 ml PO DAILYP PRN PRN Reason: Constipation Metformin [facility] (Glucophage) [facility] Last Admin: 09/16/17 08:31 Dose: 1,000 mg Methylprednisolone Sodium Succinate (Solu-Medrol) 40 mg IV Q8 [facility] Last Admin: 09/16/17 05:31 Dose: 40 mg Modafinil (Provigil) 200 mg PO DAILY [facility] Last Admin: 09/16/17 08:36 Dose: 200 mg Montelukast Sodium (Singular) 10 mg PO [facility] Last Admin: 09/15/17 21:16 Dose: 10 mg Morphine Sulfate (Ms Contin) 30 mg PO BID [facility] Last Admin: 09/16/17 08:34 Dose: Not Given Olanzapine (Zyprexa) 2.5 - 5 mg PO Q6HP PRN PRN Reason: Agitation Polyethylene Glycol (Miralax) 17 gm PO DAILYP PRN PRN Reason: Constipation Potassium Chloride (Kdur) 10 meq PO [facility] Last Admin: 09/16/17 08:31 Dose: 10 meq Prednisone (Prednisone) 20 mg PO [facility] Last Admin: 09/16/17 08:33 Dose: 20 mg Senna (Senokot) 1 tab PO BID [facility] Last Admin: 09/16/17 08:31 Dose: 1 tab Sodium Chloride (Saline Flush) 10 ml IV Q8 [facility] Last Admin: 09/16/17 05:32 Dose: 10 ml Sucralfate (Carafate) 2 gm PO BID [facility] Last Admin: 09/16/17 08:32 Dose: 2 gm Tamsulosin HCl (Flomax) 0.4 mg PO [facility] Last Admin: 09/15/17 21:16 Dose: 0.4 mg Travoprost (Travatan Z Ophth Drops) 1 gtt OU [facility] Last Admin: 09/15/17 21:17 Dose: Not Given Trazodone HCl (Desyrel) 50 mg PO [facility] Last Admin: 09/15/17 21:16 Dose: 50 mg Medical - PN: A/P - Time Spent With Patient Total time spent is greater than 50% in coordination of care (as documented) at patient's floor/unit and/or counseling patient: 15 - 24 minutes - Narrative A/P Narrative: * Acute hypercarbic respiratory failure -clinically improved. Appears close to baseline. Wean noninvasive ventilation as tolerated. * Mental status change secondary to above clinically improving * Neuropathy on gabapentin * BPH on finasteride * Chronic pain on MS Contin * DM type II on metformin/ panel insulin * Hypertension on lisinopril/Coreg * DONNY on CPAP * Anxiety disorder on Cymbalta * DVT prophylaxis on enoxaparin * DNR Plan * Continue pre-existing medical condition management meds * Transfer to medical floor * Anticipate discharge in 24 hours Medical - PN: Qual - VTE Deep Vein Thrombosis/Pulmonary Embolism Present on Admission: No
[2017-09-16] MEDS ORDERED: MAGNESIUM HYDROXIDE 30 ML ORAL.SUSP PO PRN (12:39)
[2017-09-16] MEDS ORDERED: BISACODYL 10 MG SUPP.RECT PR PRN (12:39)
[2017-09-16] MEDS ORDERED: ACETAMINOPHEN 500 MG TABLET PO PRN (12:39)
[2017-09-16] MEDS ORDERED: OLANZapine 2.5 MG TABLET PO PRN (12:39)
[2017-09-16] MEDS ORDERED: POLYETHYLENE GLYCOL 3350 17 GM PACKET PO PRN (12:39)
[2017-09-16] MEDS ORDERED: IPRATROPIUM/ALBUTEROL 3 ML AMPUL.NEB NEB PRN (12:39)
[2017-09-16] MEDS: CARVEDILOL 12.5 MG TABLET PO SCH (17:34)
[2017-09-16] MEDS ORDERED: TRAVOPROST OPHTH DROPS BOTTLE 2.5ML OU SCH (21:00)
[2017-09-16] MEDS ORDERED: MONTELUKAST 10 MG TABLET PO SCH (21:00)
[2017-09-16] MEDS ORDERED: traZODone HCL 50 MG TABLET PO SCH (21:00)
[2017-09-16] MEDS ORDERED: TAMSULOSIN 0.4 MG CAPSULE PO SCH (21:00)
[2017-09-16] MEDS ORDERED: DULoxetine 30 MG CAPSULE PO SCH (21:00)
[2017-09-16] MEDS: HYDROcodone/APAP 5/325MG TABLET PO PRN (23:27)
[2017-09-17] MEDS: 0.9 % SODIUM CHLORIDE 10 ML SYRINGE IV SCH (05:56)
[2017-09-17] MEDS: methylPREDNISolone SOD SUCC 40 MG/ML VIAL IV SCH (05:57)
[2017-09-17] MEDS: metFORMIN 500 MG TABLET PO SCH (07:28)
[2017-09-17] MEDS: HYDROcodone/APAP 5/325MG TABLET PO PRN (07:29)
[2017-09-17] MEDS: CARVEDILOL 12.5 MG TABLET PO SCH (07:32)
[2017-09-17] MEDS: INSULIN NPH, HUMAN 1 UNIT/0.01 ML UNIT SQ SCH (07:33)
[2017-09-17] MEDS: INSULIN LISPRO 1 UNIT/0.01 ML UNIT SQ SCH (07:34)
[2017-09-17] MEDS: INSULIN REGULAR, HUMAN 1 UNIT/0.01 ML UNIT SQ SCH (07:35)
[2017-09-17] MEDS ORDERED: POTASSIUM CHLORIDE 10 MEQ TABLET PO SCH (08:00)
[2017-09-17] MEDS ORDERED: predniSONE 20 MG TABLET PO SCH (08:00)
[2017-09-17] MEDS: SUCRALFATE 1 GM TABLET PO SCH (08:56)
[2017-09-17] MEDS: SENNOSIDES 1 TABLET PO SCH (08:57)
[2017-09-17] MEDS: BACLOFEN 10 MG TABLET PO SCH (08:57)
[2017-09-17] MEDS: DOCUSATE SODIUM 100 MG CAPSULE PO SCH (08:58)
[2017-09-17] MEDS: GABAPENTIN 300 MG CAPSULE PO SCH (08:58)
[2017-09-17] MEDS: morphine 30 MG TAB.SR.12H PO SCH (08:59)
[2017-09-17] MEDS ORDERED: ASPIRIN 81 MG TAB.CHEW PO SCH (09:00)
[2017-09-17] MEDS ORDERED: FINASTERIDE 5 MG TABLET PO SCH (09:00)
[2017-09-17] MEDS ORDERED: MODAFINIL 200 MG TABLET PO SCH (09:00)
[2017-09-17] MEDS ORDERED: LEVOFLOXACIN 750 MG/150 ML BAG IV SCH (09:00)
[2017-09-17] MEDS ORDERED: ENOXAPARIN 40 MG/0.4 ML SYRINGE SQ SCH (09:00)
[2017-09-17] MEDS ORDERED: LISINOPRIL 20 MG TABLET PO SCH (09:00)
--- NOTE | 2017-09-17 09:54 | Discharge Summary ---
Medical - DS: Prov Patient information: Note initiated : 09/17/17 at 9:52 am Service Date, if different from initiated Date: [] Patient: Dangelo Alvares 62 y/o M admitted on 09/13/17 for SOB/Hypercarbic Respiratory Failure. Chief Complaint: [] Date of admission: 09/13/17 22:55 Discharge date: 09/17/17 Primary care physician: Nain aHnna Consults: 09/13/17 22:10 Consult to Physician [CONS] Stat Comment: Consulting Provider: Sriram Kan Reason For Exam: Physician to Consult Medical - DS: Meds - Discharge Medications Prescriptions: predniSONE [Pred[facility]one] [facility] Active and Home Medications: Home Medications Acetaminophen [Tylenol Extra Strength] 1,000 mg PO Q6H PRN 10/02/15 [History Confirmed 09/13/17 Last Taken 09/10/17 05:53] Baclofen [Lioresal] 10 mg PO TID 10/02/15 [History Confirmed 09/13/17 Last Taken 09/13/17 18:44] Bisacodyl [Dulcolax] [address] DAILYP PRN 10/02/15 [History Confirmed 09/13/17 Last Taken 01/24/16] Carvedilol [Coreg] 12.5 mg PO BIDCC 10/02/15 [History Confirmed 09/13/17 Last Taken 09/13/17 18:50] DULoxetine HCL [Cymbalta] 60 mg PO QHS 10/02/15 [History Confirmed 09/13/17 Last Taken 09/12/17 19:45] Docusate Sodium [Colace] 100 mg PO BID 10/02/15 [History Confirmed 09/13/17 Last Taken 09/13/17 18:44] Furosemide [Lasix] 40 mg PO BID 10/02/15 [History Confirmed 09/13/17 Last Taken 09/13/17 18:44] Gabapentin 600 mg PO TID 10/02/15 [History Confirmed 09/13/17 Last Taken 18:44] Insulin Aspart [Novolog] 1 unit SQ .COMPLEX 10/02/15 [History Confirmed Last Taken 09/13/17 11:45] Insulin Detemir [Levemir] 50 unit SQ QAM 10/02/15 [History Confirmed 09/13/17 Last Taken 09/13/17 08:15] Liraglutide [Victoza 2-Rico] 1.8 mg SC DAILY 10/02/15 [History Confirmed Last Taken 09/13/17 10:05] Lisinopril [Zestril] 10 mg PO DAILY 10/02/15 [History Confirmed 09/13/17 Last Taken 09/13/17 09:52] Na Phos,M-B/Na Phos,Di-Ba [Fleets Adult] [address] DAILYP PRN 10/02/15 [History Confirmed 09/13/17 Last Taken 01/24/16] Polyethylene Glycol 3350 [Miralax] 17 gm PO DAILYP PRN 10/02/15 [History Confirmed 09/13/17 Last Taken 01/24/16] Potassium Chloride 10 meq PO DAILY 10/02/15 [History Confirmed 09/13/17 Last Taken 09/13/17 09:50] Sucralfate [Carafate] 2 gm PO BID 10/02/15 [History Confirmed 09/13/17 Last Taken 09/13/17 18:44] Travoprost Ophth Drops [Travatan Z Ophth Drops] 1 gtt OU HS 10/02/15 [History Confirmed 09/13/17 Last Taken 09/12/17 19:45] metFORMIN HCL [Fortamet] 1,000 mg PO BID 10/02/15 [History Confirmed 09/13/17 Last Taken 09/13/17 18:44] morphine SULFATE [Morphine Sulfate] 30 mg PO BID 10/02/15 [History Confirmed Last Taken 09/13/17 17:45] Sennosides [Senna Laxative] 8.6 mg PO BID 01/21/16 [History Confirmed 09/13/17 Last Taken 09/13/17 18:45] Aspirin [Donna Chewable Aspirin] 81 mg PO DAILY 09/13/17 [History Confirmed Last Taken 09/13/17 09:52] Budesonide [Pulmicort] 0.5 mg NEB BID 09/13/17 [History Confirmed 09/13/17 Last Taken 09/13/17 18:40] Finasteride [Proscar] 5 mg PO DAILY 09/13/17 [History Confirmed 09/13/17 Last Taken 09/13/17 09:52] HYDROcodone/APAP 5/325MG [Datto 5-325Mg] 1 - 2 tab PO PRN PRN 09/13/17 [History Confirmed 09/13/17 Last Taken 09/12/17 02:50] Ipratropium/Albuterol [Duoneb] 3 ml NEB Q6HRT 09/13/17 [History Confirmed Last Taken 09/13/17 18:40] Magnesium Hydroxide [Milk of Magnesia] 30 ml PO DAILYP PRN 09/13/17 [History Confirmed 09/13/17 Last Taken Unknown] Modafinil [Provigil] 200 mg PO DAILY 09/13/17 [History Confirmed 09/13/17 Last Taken 09/13/17 09:50] Montelukast [Singular] 10 mg PO HS 09/13/17 [History Confirmed 09/13/17 Last Taken 09/12/17 19:45] Na Phos,M-B/Na Phos,Di-Ba [Fleets Adult] [address] DAILYP PRN 09/13/17 [History Confirmed 09/13/17 Last Taken Unknown] Symbicort 160-4.5 Mcg Inhaler 2 puff PO BID 09/13/17 [History Confirmed Last Taken 09/13/17 18:40] Tamsulosin [Flomax] 0.4 mg PO HS 09/13/17 [History Confirmed 09/13/17 Last Taken 09/13/17 18:44] acetaZOLAMIDE [Acetazolamide] 250 mg PO BID 09/13/17 [History Confirmed Last Taken 09/13/17 18:44] traZODone HCL [Trazodone HCl] 50 mg PO HS 09/13/17 [History Confirmed 09/13/17 Last Taken 09/12/17 00:20] predniSONE [Prednisone] 20 mg PO QAC #2 tab 09/17/17 [Rx Last Taken Unknown] Medical - DS: Hosp Hospital course: Discharge diagnosis * Acute hypercarbic respiratory failure -clinically improved. Now at baseline. Continue home CPAP at previous settings on discharge transfer to SNF. * Mental status change secondary to above clinically resolved * Neuropathy managed on gabapentin/Cymbalta * BPH remained at baseline on finasteride/tamsulosin * Chronic pain managed on home dose MS Contin * DM type II on metformin/prandial insulin * History of COPD managed on home dose Symbicort * Hypertension managed on home dose lisinopril/Coreg * Glaucoma continued on travoprost * DONNY on CPAP * Anxiety disorder on Cymbalta Brief hospital course 62-year-old with morbid obesity and obstructive sleep apnea admitted with hypercapnic respiratory failure secondary to opioids and chronic CO2 retention 09/15-patient doing better on noninvasive ventilation. No overnight events. Improved confusion delirium. Status post 1 dose Haldol. On 2 L oxygen. DC Short's catheter today. Continue physical therapy. Repeat ABGs today. Continue home medications for pre-existing medical issues. Anticipate transfer to medical floor in 24 hours. 09/16-patient doing a lot better. No overnight events. No concerns per staff. Denies fever chills or worsening shortness of breath. Transfer to medical floor today. No overnight confusion or delirium episodes. White count 11,000. 09/17-patient feels at baseline. Using CPAP at night. No overnight events including fever chills worsening shortness of breath or confusion. Discharging with instructions medications as below. Continue posthospitalization rehabilitation as tolerated. Discharge diagnosis: . - Time Spent with Patient Total time spent providing and/or coordinating discharge services: Greater than 30 minutes Medical - DS: Exam - Constitutional Vitals: Vital Signs Temp Pulse Resp BP Pulse Ox 09/17/17 07:39 96.6 F L 97 H 20 179/84 98 09/17/17 04:00 98.6 F 94 H 20 169/83 98 09/17/17 00:00 97.9 F 88 16 164/87 91 09/16/17 20:38 97 H 147/94 09/16/17 20:00 95 09/16/17 19:29 97.7 F 95 H 18 195/121 95 09/16/17 16:00 99.8 F H 96 H 20 190/103 96 09/16/17 12:00 98.3 F 93 H 20 154/102 94 Intake and Output 09/16/17 09/17/17 09/17/17 21:59 05:59 13:59 Intake Total 1550 / 1550 200 / 200 Output Total 1225 / 1225 850 / 850 750 / 750 Balance 325 / 325 -650 / -650 -750 / -750 Intake: Oral 1550 / 1550 200 / 200 Output: Void Amount 1225 / 1225 850 / 850 750 / 750 Other: Meal Dinner Percent of Meal Consumed 100% Feeding Ability Assist with Tray Set Up Weight 397 lb Medical - DS: Data Labs on day of discharge: Preliminary micro results at discharge 09/13/17 22:25 Blood Culture - Preliminary Blood 09/13/17 22:15 Blood Culture - Preliminary Blood Medical - DS: A/P - Patient/Caregiver Discharge Instructions Activity: as per physical therapy, increase activity as tolerated Diet: Renal/Consistent Carbs Additional Instructions: Follow-up PCP in 5 days I recommend SNF physician to check CBC BMP UA as a posthospital follow-up in 1 week. CPAP at previous settings Prednisone for additional 2 doses Please schedule pulmonary function test as outpatient in 3 weeks Continue aggressive bowel regimen to prevent constipation Continue fall precautions Continue aggressive PT OT evaluation and treatment at [facility]. ST eval and treatment if indicated All meals on chair sitting upright at 90 degrees to prevent aspiration Return to ER if worsening fever chills shortness of breath, diarrhea, bleeding Refrain from smoking and alcohol Continue diet and activity as advised Discussed importance of medication adherence Please review medication list with patient prior to discharge Please schedule follow-up with PCP/Providers prior to discharge and provide printouts Portions of this chart may have been created with [employer]ium voice recognition software. Occasional wrong-word or ?sound-like? substitutions may have occurred due to the inherent limitations of voice recognition software. Please read the chart carefully and recognize, using context, where the substitutions have occurred. CC- PCP Prescriptions: predniSONE [Prednisone] 20 mg PO [facility] #2 tab - Follow up Plan Follow up with: Nain Hanna MD [Primary Care Provider] - Disposition: [facility] [place] Prognosis: Fair Rehab Potential: Fair I certify that the patient requires SNF services: Yes Overall status at discharge: patient is progressing back to baseline Medical - DS: Qual - VTE Deep Vein Thrombosis/Pulmonary Embolism Present on Admission: No
== END 2017-09-17 11:40 | DRG 189 ==
LOC: ED 20:33 → ICU 22:55 → MEDSUR 09-16 18:50
PROVIDERS: ADMIT Internal Medicine; ATTEND Internal Medicine

== ENCOUNTER 2017-12-04 03:48 | Inpatient (IN) ==
--- NOTE | 2017-12-04 04:02 | Emergency Department Note ---
SOB HPI - General Chief Complaint: Shortness of Breath/Dyspnea Stated Complaint: shortness of breath Time Seen by Provider: 12/04/17 03:53 Source: patient Mode of arrival: EMS Limitations: no limitations - History of Present Illness Patient is brought from [facility] after having 7 days of shortness of breath apparently. He has a history of COPD. He had an x-ray on the sixth of his chest which demonstrated atelectasis versus pneumonia. He has a remote history of pneumonia. He was saturating in the 80% at [facility] and for this reason was sent in. He has a history of acute on chronic respiratory failure with hypercapnia and hypoxia as well. He also has sleep apnea for which he has CPAP but he reports not being able to tolerate that well recently. REVIEW OF SYSTEMS: Denies fever. Has had some chills and sweats. No chest pain. Has had some headaches. Additional review of systems was impossible to reliably obtain due to patient frequently and quickly dozing off and falling asleep. - Related Data Home Medications Medication Instructions Recorded Confirmed Acetaminophen [Tylenol Extra 1,000 mg PO Q6H PRN 10/02/15 12/04/17 Strength] Baclofen [Lioresal] 10 mg PO TID 10/02/15 12/04/17 Bisacodyl [Dulcolax] [address] DAILYP PRN 10/02/15 12/04/17 Carvedilol [Coreg] 12.5 mg PO BIDCC 10/02/15 12/04/17 DULoxetine HCL [Cymbalta] 60 mg PO QHS 10/02/15 12/04/17 Docusate Sodium [Colace] 100 mg PO BID 10/02/15 12/04/17 Furosemide [Lasix] 40 mg PO BID 10/02/15 12/04/17 Gabapentin 600 mg PO TID 10/02/15 12/04/17 Insulin Aspart [Novolog] 1 unit SQ .COMPLEX 10/02/15 12/04/17 Insulin Detemir [Levemir] 50 unit SQ QAM 10/02/15 12/04/17 Lisinopril [Zestril] 10 mg PO DAILY 10/02/15 12/04/17 Polyethylene Glycol 3350 [Miralax] 17 gm PO DAILYP PRN 10/02/15 12/04/17 Potassium Chloride 10 meq PO DAILY 10/02/15 12/04/17 Sucralfate [Carafate] 2 gm PO BID 10/02/15 12/04/17 metFORMIN HCL [Fortamet] 1,000 mg PO BID 10/02/15 12/04/17 morphine SULFATE [Morphine Sulfate] 30 mg PO BID 10/02/15 12/04/17 Aspirin [Donna Chewable Aspirin] 81 mg PO DAILY 09/13/17 12/04/17 Budesonide [Pulmicort] 0.5 mg NEB BID 09/13/17 12/04/17 Finasteride [Proscar] 5 mg PO DAILY 09/13/17 12/04/17 HYDROcodone/APAP 5/325MG [[place] 1 - 2 tab PO Q4HP PRN 09/13/17 12/04/17 5-325Mg] Ipratropium/Albuterol [Duoneb] 3 ml NEB Q6HRT 09/13/17 12/04/17 Magnesium Hydroxide [Milk of 30 ml PO DAILYP PRN 09/13/17 12/04/17 Magnesia] Modafinil [Provigil] 200 mg PO DAILY 09/13/17 12/04/17 Montelukast [Singular] 10 mg PO HS 09/13/17 12/04/17 Na Phos,M-B/Na Phos,Di-Ba [Fleets [address] DAILYP PRN 09/13/17 12/04/17 Adult] Tamsulosin [Flomax] 0.4 mg PO HS 09/13/17 12/04/17 acetaZOLAMIDE [Acetazolamide] 250 mg PO BID 09/13/17 12/04/17 Lubiprostone [Amitiza] 24 mcg PO BID 12/04/17 12/04/17 Pravastatin Sodium 10 mg PO ONCE 12/04/17 12/04/17 guaiFENesin [Mucinex] 600 mg PO BID 12/04/17 12/04/17 Allergies Allergy/AdvReac Type Severity Reaction Status Date / Time brimonidine Allergy Unknown Unknown Verified 12/04/17 03:54 gentamicin Allergy Unknown Unknown Verified 12/04/17 03:54 Past Medical History - Past Medical History Medical history: Reports: arthritis, CHF, COPD (acute and chronic respiratory failure with hypercarboxia and hypoxia.), coronary artery disease, DM (Insulin using type II.), glaucoma, hyperlipidemia, hypertension, obesity (Morbid), renal disease (Acute renal failure.), other (BPH. CHRONIC NARCOTICS/CHRONIC PAIN. POLYNEUROPATHY. DONNY-CPAP. CHRONIC CONSTIPATION. ANEMIA. UTI (2016). C02 RETENTION. PNEUMONIA. LUMBAGO. MEMORY DYSFUNCTION. LYMPHEDEMA. INSOMNIA. DRY SYNDROME. VENOUS INSUFFICIENCY.). Denies: CVA, TIA Psychiatric history: Reports: anxiety Surgical history ED: Reports: appendectomy Family history: Reports: CVA/Stroke (Father. Mother had TIAs.) - Social History smoking status: Former smoker Physical Exam Limitations: no limitations General appearance: other (Arousable and interactive and seems appropriate but is sleepy and droopy eyed.) Head: atraumatic, normocephalic Eye: Present: EOMI, conjunctival injection (Mild). Absent: scleral icterus ENT: normal exam, mucous membranes moist Neck: Present: trachea midline, other (But very large and full). Absent: lymphadenopathy, thyromegaly Chest: Present: symmetric chest wall rise Respiratory: Present: wheezes (Mild polyphonic expiratory anteriorly), other ( Frequent congested and deep cough). Absent: respiratory distress, stridor, accessory muscle use, prolonged expiratory phase Cardiovascular: Present: regular rate, normal rhythm. Absent: systolic murmur, diastolic murmur Abdominal: Present: soft, other (Morbidly large/domed). Absent: distention, tenderness, guarding, rebound, rigidity, organomegaly, mass Extremities: Absent: pedal edema, pretibial edema, calf tenderness Back: Absent: CVA tenderness (R), CVA tenderness (L) Neurological: Present: alert, oriented X3 Psychiatric: Present: flat affect, other (Some seriousness but no slowed speech. ) Skin: Present: warm, dry Course Course Narrative: 4:04 AM Shortness of breath increasing with cough in a patient with COPD and pickwickian and acute and chronic respiratory failure, and history of pneumonia with congested cough present currently and history of same for one week. Multiple labs and x-rays. EKG initially is without any ACS findings. Vital Signs Temperature 98.5 F 12/04/17 03:49 Pulse Rate 98 H 12/04/17 03:49 Respiratory Rate 26 H 12/04/17 03:49 Blood Pressure 176/93 12/04/17 03:49 Pulse Oximetry (%) 92 12/04/17 03:49 Temperature 98.5 F 12/04/17 03:49 Pulse Rate 66 12/04/17 05:16 Respiratory Rate 25 H 12/04/17 05:16 Blood Pressure 161/132 12/04/17 05:16 Pulse Oximetry (%) 82 L 12/04/17 05:16 Shortness of Breath/Dyspnea - [facility] Narrative Medical decision making narrative: 5:17 AM With patient's elevated white count (15) and acute on chronic respiratory failure (ph 7.27, PCO2 88), sputum cultures have been obtained as well as blood cultures and antibiotics have been initiated (ceftriaxone 1 gram; azithromycin 500 mg). Chest x-ray with probable fulminant CHF as well although he has no peripheral edema currently. I spoke with Dr. Scott, hospitalist, who kindly accepts this patient's care for inpatient further evaluation and treatment. Troponin added to labs. - Lab Data Lab results reviewed: Yes I reviewed the patient's lab results. Result diagrams: 12/04/17 04:00 12/04/17 04:00 Lab Results 12/04/17 12/04/17 12/04/17 Range/Units 04:00 04:00 04:00 WBC 16.0 H (4.5-11.0) K/mcL RBC 4.58 (4.50-5.90) M/mcL Hgb 13.2 L (13.5-16.5) g/dL Hct 40.7 L (41.0-55.0) % MCV 88.8 (80.0-100.0) fL MCH 28.8 (26.0-34.0) pg MCHC 32.5 (31.0-36.0) g/dL RDW 16.5 H (11.5-14.5) % Plt Count 363 (140-440) K/mcL MPV 8.3 (7.4-10.4) fL Gran % 73.6 (38.0-78.0) % Lymph % (Auto) 16.9 (15.5-49.0) % [place] % (Auto) 7.2 (1.0-12.0) % Eos % (Auto) 2.2 (0.0-7.0) % Baso % (Auto) 0.1 (0.0-2.0) % Gran # 11.8 H (1.8-8.0) K/mcL Lymph # (Auto) 2.7 (1.5-4.8) K/mcL [place] # (Auto) 1.1 H (0.1-0.9) K/mcL Eos # (Auto) 0.3 (0.0-0.7) K/mcL Baso # (Auto) 0 (0.0-0.3) K/mcL D-Dimer 0.75 H (0.00-0.40) ug/ml Sodium 138 (133-145) mmol/L Potassium 4.3 (3.3-5.1) mmol/L Chloride 97 (96-108) mmol/L Carbon Dioxide 29 (22-30) mmol/L Anion Gap 12.0 (8-16) BUN 22 (8-23) mg/dl Creatinine 0.8 (0.7-1.2) mg/dl GFR Calculation 94 Glucose 216 H (70-105) mg/dL Calcium 9.0 (8.6-10.4) mg/dl Total Bilirubin 0.2 (0.0-1.0) mg/dL AST 13 (0-37) U/l ALT 12 (0-40) U/l Alkaline Phosphatase 104 (39-117) U/L NT-Pro-B Natriuret Pep 101.6 (0-125) pg/ml Total Protein 7.3 (5.9-8.4) gm/dL Albumin 3.8 (3.2-5.2) gm/dL Globulin 3.5 (2.2-3.7) gm/dL Albumin/Globulin Ratio 1.1 (1.0-2.3) Procalcitonin (<0.10) ng/mL 12/04/17 Range/Units 04:00 WBC (4.5-11.0) K/mcL RBC (4.50-5.90) M/mcL Hgb (13.5-16.5) g/dL Hct (41.0-55.0) % MCV (80.0-100.0) fL MCH (26.0-34.0) pg MCHC (31.0-36.0) g/dL RDW (11.5-14.5) % Plt Count (140-440) K/mcL MPV (7.4-10.4) fL Gran % (38.0-78.0) % Lymph % (Auto) (15.5-49.0) % [place] % (Auto) (1.0-12.0) % Eos % (Auto) (0.0-7.0) % Baso % (Auto) (0.0-2.0) % Gran # (1.8-8.0) K/mcL Lymph # (Auto) (1.5-4.8) K/mcL [place] # (Auto) (0.1-0.9) K/mcL Eos # (Auto) (0.0-0.7) K/mcL Baso # (Auto) (0.0-0.3) K/mcL D-Dimer (0.00-0.40) ug/ml Sodium (133-145) mmol/L Potassium (3.3-5.1) mmol/L Chloride (96-108) mmol/L Carbon Dioxide (22-30) mmol/L Anion Gap (8-16) BUN (8-23) mg/dl Creatinine (0.7-1.2) mg/dl GFR Calculation Glucose (70-105) mg/dL Calcium (8.6-10.4) mg/dl Total Bilirubin (0.0-1.0) mg/dL AST (0-37) U/l ALT (0-40) U/l Alkaline Phosphatase (39-117) U/L NT-Pro-B Natriuret Pep (0-125) pg/ml Total Protein (5.9-8.4) gm/dL Albumin (3.2-5.2) gm/dL Globulin (2.2-3.7) gm/dL Albumin/Globulin Ratio (1.0-2.3) Procalcitonin 0.12 (<0.10) ng/mL - Radiology Data Radiology results reviewed: Yes I reviewed the patient's radiology results. probable component of CHF/pulmonary edema. - EKG Data EKG results narrative: No acute coronary syndrome findings. This ECG will be read by a crop or livestock tenant farmer. Disposition Pt seen by MANAGER [employer]/PA only: No Clinical Impression: COPD exacerbation, Morbid obesity due to excess calories, DONNY on CPAP, Acute respiratory acidosis, Medically complex patient Acute and chronic respiratory failure ([id number]) Qualifiers: Respiratory failure complication: hypoxia and hypercapnia Qualified Code(s): J96.21 - Acute and chronic respiratory failure with hypoxia Disposition: Xfer As Inpt ([facility]) Condition: Serious Referrals: Nain Hanna MD [Primary Care Provider] -
[2017-12-04 04:44] LABS: Basophils # (Auto) 0 K/mcL (0.0-0.3); Basophils % (Auto) 0.1 % (0.0-2.0); Eosinophils # (Auto) 0.3 K/mcL (0.0-0.7); Eosinophils % (Auto) 2.2 % (0.0-7.0); Granulocytes % (Auto) 73.6 % (38.0-78.0); Lymphocytes # (Auto) 2.7 K/mcL (1.5-4.8); Lymphocytes % (Auto) 16.9 % (15.5-49.0); Mean Cell Volume 88.8 fL (80.0-100.0); Mean Corpuscular HGB Conc 32.5 g/dL (31.0-36.0); Mean Corpuscular Hemoglobin 28.8 pg (26.0-34.0); Monocytes # (Auto) 1.1 K/mcL (0.1-0.9); Monocytes % (Auto) 7.2 % (1.0-12.0); Platelet Count 363 K/mcL (140-440); RBC 4.58 M/mcL (4.50-5.90); Red Cell Distribution Width 16.5 % (11.5-14.5)
[2017-12-04] MEDS ORDERED: cefTRIAXone 1 GM VIAL IV ONE (04:46)
[2017-12-04] MEDS ORDERED: AZITHROMYCIN 500 MG in DEXTROSE 5% IN WATER 250 ML IV ONE (04:46)
[2017-12-04 04:52] LABS: ALT/SGPT 12 U/l (0-40); Albumin 3.8 gm/dL (3.2-5.2); Albumin/Globulin Ratio 1.1 (1.0-2.3); Alkaline Phosphatase 104 U/L (39-117); Blood Urea Nitrogen 22 mg/dl (8-23); proBNP 101.6 pg/ml (0-125)
[2017-12-04] MEDS ORDERED: LORazepam 2 MG/ML VIAL IV ONE (05:33)
[2017-12-04] MEDS ORDERED: IPRATROPIUM/ALBUTEROL 3 ML AMPUL.NEB NEB ONE (06:20)
[2017-12-04] MEDS ORDERED: methylPREDNISolone SOD SUCC 125 MG/2 ML VIAL IV ONE (06:20)
--- NOTE | 2017-12-04 06:53 | Internal Med History&Physical ---
Medical - H&P: HPI Patient information: Note initiated : 12/04/17 at 6:50 am Service Date, if different from initiated Date: [] Patient: Dangelo Alvares 62 y/o M admitted on for shortness of breath. Chief Complaint: [] History of present illness: Mr. Alvares is a 62 year old M a resident of [facility], presented to the emergency room for altered mental status and shortness of breath. The patient was drowsy on my evaluation only able to answer some questions, had received some Ativan a while ago. Most of the history from chart review. The patient apparently was brought in to the hospital because of shortness of breath that has been going on for the last 7 days, he has also complained about increased frequency of cough. There is no description about the sputum. The patient has history of COPD, he uses CPAP at night. He notes that he has not been able to lie down flat and sleep for the last few days and has needed to sit upright in sleep. He is unaware of his CPAP settings. The patient was admitted to this hospital in August for hypoxic hypercapnic respiratory failure which is attributed to opiate use. Chest x-ray then was interpreted as congestive heart failure. The patient in the emergency room was afebrile with a temperature of 98.3 heart rate 100, blood pressure was stable 127-105 patient was bleeding from 16-25, saturating at the [place] 0.82% on oxygen Blood gas on presentation showed pH of 7.24, PO2 72, PCO2 88, lactic acid 0.6. The patient was started on BiPAP therapy. Repeat ABG done in our shows improvement in that gas but pH 7.27 and PCO2 of 78. The patient had not received steroids in the ED, blood cultures were obtained after the initiation of antibiotics. Labs show patient has a white count of 16,000 hemoglobin 13 platelets 363. Electrolytes stable glucose elevated at 216, lactic acid is 1 pro calcitonin 0.12 troponin is negative. Chest x-ray shows cardiomegaly mild CHF but much better compared to previous x-ray does have some reticulonodular pattern bilaterally parenchyma. No obvious infiltrate noted. Patient is being admitted to PCU status for further monitoring. In August the patient was admitted with a similar diagnosis part of his hypercapnic respiratory failure was attributed to use of narcotics. ROS unobtainable: due to mental status Medical - H&P: PMH Medical history: Medical History Lumbar disc disease with radiculopathy (Chronic) morbid obesity HTN DM HLD Chr pain DONNY on cpap COPD CHF Family history: reviewed and not pertinent (from chart) Social history: lives in [place] no active smoker, remote history Medical - H&P: Meds Home Medications Medication Instructions Recorded Confirmed Type Acetaminophen [Tylenol Extra 1,000 mg PO Q6H PRN 10/02/15 12/04/17 History Strength] Baclofen [Lioresal] 10 mg PO TID 10/02/15 12/04/17 History Bisacodyl [Dulcolax] 10 mg AL DAILYP PRN 10/02/15 12/04/17 History Carvedilol [Coreg] 12.5 mg PO BIDCC 10/02/15 12/04/17 History DULoxetine HCL [Cymbalta] 60 mg PO QHS 10/02/15 12/04/17 History Docusate Sodium [Colace] 100 mg PO BID 10/02/15 12/04/17 History Furosemide [Lasix] 40 mg PO BID 10/02/15 12/04/17 History Gabapentin 600 mg PO TID 10/02/15 12/04/17 History Insulin Aspart [Novolog] 1 unit SQ .COMPLEX 10/02/15 12/04/17 History Insulin Detemir [Levemir] 50 unit SQ QAM 10/02/15 12/04/17 History Lisinopril [Zestril] 10 mg PO DAILY 10/02/15 12/04/17 History Polyethylene Glycol 3350 [Miralax] 17 gm PO DAILYP PRN 10/02/15 12/04/17 History Potassium Chloride 10 meq PO DAILY 10/02/15 12/04/17 History Sucralfate [Carafate] 2 gm PO BID 10/02/15 12/04/17 History metFORMIN HCL [Fortamet] 1,000 mg PO BID 10/02/15 12/04/17 History morphine SULFATE [Morphine Sulfate] 30 mg PO BID 10/02/15 12/04/17 History Aspirin [Donna Chewable Aspirin] 81 mg PO DAILY 09/13/17 12/04/17 History Budesonide [Pulmicort] 0.5 mg NEB BID 09/13/17 12/04/17 History Finasteride [Proscar] 5 mg PO DAILY 09/13/17 12/04/17 History HYDROcodone/APAP 5/325MG [[place] 1 - 2 tab PO Q4HP PRN 09/13/17 12/04/17 History 5-325Mg] Ipratropium/Albuterol [Duoneb] 3 ml NEB Q6HRT 09/13/17 12/04/17 History Magnesium Hydroxide [Milk of 30 ml PO DAILYP PRN 09/13/17 12/04/17 History Magnesia] Modafinil [Provigil] 200 mg PO DAILY 09/13/17 12/04/17 History Montelukast [Singular] 10 mg PO HS 09/13/17 12/04/17 History Na Phos,M-B/Na Phos,Di-Ba [Fleets 1 dose AL DAILYP PRN 09/13/17 12/04/17 History Adult] Tamsulosin [Flomax] 0.4 mg PO HS 09/13/17 12/04/17 History acetaZOLAMIDE [Acetazolamide] 250 mg PO BID 09/13/17 12/04/17 History Lubiprostone [Amitiza] 24 mcg PO BID 12/04/17 12/04/17 History Pravastatin Sodium 10 mg PO ONCE 12/04/17 12/04/17 History guaiFENesin [Mucinex] 600 mg PO BID 12/04/17 12/04/17 History Allergies Allergy/AdvReac Type Severity Reaction Status Date / Time brimonidine Allergy Unknown Unknown Verified 12/04/17 03:54 gentamicin Allergy Unknown Unknown Verified 12/04/17 03:54 Medical - H&P: Exam - Constitutional Vitals: Temp Pulse Resp BP Pulse Ox 98.5 F 79 11 L 94/59 96 12/04/17 03:49 12/04/17 06:46 12/04/17 06:46 12/04/17 06:46 12/04/17 06:46 Exam: GENERAL: The patient is morbidly obese, drowsy, does open eyes to verbal commands and follows commands when awake. Alert oriented 1 VITAL SIGNS: Reviewed and as noted elsewhere. HEENT: Head is normocephalic and atraumatic. Extraocular muscles are intact. Pupils are equal, round, and reactive to light. Nares appeared normal. Mouth appears any without lesions. NECK: Normal to inspection, Supple, No lymphadenopathy or thyromegaly. Short thick neck LUNGS: Air entry equal on both sides, decreased air entry bilaterally, I was unable to appreciate meaningful wheezing or crackles. Given the patient's habitat on the anterior and lateral exam was possible HEART: Regular rate and rhythm normal, S1 and S2 heard, no Gallop, S3 or Rub Noted, No Gross murmur heard. Distant heart sounds ABDOMEN: Soft, nontender. Patient has a very large protuberant abdomen, difficult to to meaningful department palpation. EXTREMITIES: No cyanosis, clubbing, rash, lesions , edema plus plus. NEUROLOGIC: Cranial nerves II through XII are grossly intact. Motor and Sensory System Grossly Intact PSYCHIATRIC: Drowsy confused does follow commands.. SKIN: No ulceration or wounds noted, No jaundice, No rash noted. Medical - H&P: Reslt - Labs CBC & Chem 7: 12/04/17 04:00 12/04/17 04:00 Labs: Short CBC 12/04/17 Range/Units 04:00 WBC 16.0 H (4.5-11.0) K/mcL Hgb 13.2 L (13.5-16.5) g/dL Hct 40.7 L (41.0-55.0) % Plt Count 363 (140-440) K/mcL BMP 12/04/17 04:00 Sodium 138 Potassium 4.3 Chloride 97 Carbon Dioxide 29 BUN 22 Creatinine 0.8 Glucose 216 H Calcium 9.0 Cardiac Enzymes 12/04/17 Range/Units 04:00 Troponin T < 0.01 (0-0.03) ng/ml Liver Function 12/04/17 Range/Units 04:00 Total Bilirubin 0.2 (0.0-1.0) mg/dL AST 13 (0-37) U/l ALT 12 (0-40) U/l Alkaline Phosphatase 104 (39-117) U/L Albumin 3.8 (3.2-5.2) gm/dL Medical - H&P: A/P - Narrative A/P Narrative: A/P Acute hypoxic, Hypercapenic Respiratory Failure Acute COPD exacerbation Pneumonia? Morbid obesity Obstructive sleep apnea Chronic Pain, on narcotics Diabetes Mellitus, On Insulin Hypertension Congestive Heart failure BPH Anxiety Distorder Plan Admit to PCU status Continue with BIPAP Therapy Trend ABG, DUonebs q4hrs, IV solumedrol, IV levofloxacin blood and sputum cx sent, low suspicion for atypical organisms at this time, Will add vancomycin if mrsa screen is positive lantus, humalog ssi to keep glucose in control, hold metformin for now bp stable, resume home bp medications hold ms contin, given previous admission from narcotic use, let pt wake up before resuming [facility] narcotic therapy bowel regime Resume home meds for other [facility] conditions. DVT enoxaparin DNR code status, OK to intubate
[2017-12-04] MEDS ORDERED: SENNOSIDES 1 TABLET PO SCH (07:02)
[2017-12-04] MEDS ORDERED: ACETAMINOPHEN 325 MG TABLET PO PRN (07:02)
[2017-12-04] MEDS ORDERED: BISACODYL 10 MG SUPP.RECT PR PRN (07:02)
[2017-12-04] MEDS ORDERED: ONDANSETRON 4 MG/2 ML VIAL IV PRN (07:02)
[2017-12-04] MEDS ORDERED: NALOXONE HCL 0.4 MG/ML VIAL IV PRN (07:02)
[2017-12-04] MEDS ORDERED: DEXTROSE 50% 50 ML VIAL IV PRN (07:02)
[2017-12-04] MEDS ORDERED: DEXTROSE 31 GM ORAL.SUSP PO PRN (07:02)
[2017-12-04] MEDS ORDERED: MAGNESIUM HYDROXIDE 30 ML ORAL.SUSP PO PRN (07:02)
[2017-12-04] MEDS: IPRATROPIUM/ALBUTEROL 3 ML AMPUL.NEB NEB SCH ×5 (07:17→22:46)
[2017-12-04] MEDS: LEVOFLOXACIN 750 MG/150 ML BAG IV SCH (08:14)
[2017-12-04] MEDS: 0.9 % SODIUM CHLORIDE 10 ML SYRINGE IV SCH ×4 (08:14→20:25)
[2017-12-04] MEDS: INSULIN LISPRO 1 UNIT/0.01 ML UNIT SQ SCH ×5 (08:22→22:06)
--- NOTE | 2017-12-04 08:28 | XRay Report ---
HISTORY: Shortness of breath for one week FINDINGS: There is a mild generalized haziness throughout both lungs. This is probably scatter artifact created by the patient's obesity. No consolidating infiltrate is present. The heart is mildly enlarged but magnified by portable technique. No pleural effusion is detected. Comparison with the prior exam from 09/13/17 shows the heart is smaller today and the patient does not appear to be in congestive heart failure at this time. IMPRESSION: Mild cardiomegaly Interpreted and Authenticated by: Alin Rothman 12/04/17
[2017-12-04] MEDS: ASPIRIN 81 MG TAB.CHEW PO SCH (09:42)
[2017-12-04] MEDS: GABAPENTIN 300 MG CAPSULE PO SCH ×3 (09:42→20:23)
[2017-12-04] MEDS: SUCRALFATE 1 GM TABLET PO SCH ×2 (09:42→20:23)
[2017-12-04] MEDS: CARVEDILOL 6.25 MG TABLET PO SCH ×2 (09:44→17:27)
[2017-12-04] MEDS: LISINOPRIL 10 MG TABLET PO SCH (09:45)
[2017-12-04] MEDS: POTASSIUM CHLORIDE 10 MEQ TABLET PO SCH (09:45)
[2017-12-04] MEDS: MODAFINIL 200 MG TABLET PO SCH (09:46)
[2017-12-04] MEDS: FAMOTIDINE/PF 20 MG/2 ML VIAL IV SCH ×2 (09:47→20:24)
[2017-12-04] MEDS: ENOXAPARIN 30 MG/0.3 ML SYRINGE SQ SCH ×2 (09:47→20:24)
[2017-12-04] MEDS: acetaZOLAMIDE 250 MG TABLET PO SCH ×2 (09:47→20:24)
[2017-12-04] MEDS: FINASTERIDE 5 MG TABLET PO SCH (09:51)
[2017-12-04] MEDS: BACLOFEN 10 MG TABLET PO SCH ×3 (09:52→20:23)
[2017-12-04] MEDS: FUROSEMIDE 40 MG TABLET PO SCH ×2 (09:54→20:23)
[2017-12-04] MEDS: INSULIN GLARGINE, HUMAN 1 UNIT/0.01 ML SQ SCH (09:56)
[2017-12-04] MEDS: BUDESONIDE 0.5 MG/2 ML AMPUL.NEB NEB SCH ×2 (10:15→19:03)
[2017-12-04] MEDS: methylPREDNISolone SOD SUCC 125 MG/2 ML VIAL IV SCH ×2 (14:53→22:08)
[2017-12-04] MEDS ORDERED: MONTELUKAST 10 MG TABLET PO SCH (21:00)
[2017-12-04] MEDS ORDERED: DULoxetine 30 MG CAPSULE PO SCH (21:00)
[2017-12-04] MEDS ORDERED: SIMVASTATIN 10 MG TABLET PO SCH (21:00)
[2017-12-04] MEDS ORDERED: TAMSULOSIN 0.4 MG CAPSULE PO SCH (21:00)
[2017-12-05] MEDS ORDERED: INSULIN REGULAR, HUMAN 1 UNIT/0.01 ML UNIT IV ONE (00:21)
[2017-12-05] MEDS ORDERED: INSULIN REGULAR, HUMAN 1 UNIT/0.01 ML UNIT ONE (00:23)
[2017-12-05] MEDS: INSULIN LISPRO 1 UNIT/0.01 ML UNIT SQ SCH ×5 (02:23→22:36)
[2017-12-05] MEDS: IPRATROPIUM/ALBUTEROL 3 ML AMPUL.NEB NEB SCH ×6 (03:20→22:38)
[2017-12-05 05:53] LABS: Basophils # (Auto) 0 K/mcL (0.0-0.3); Basophils % (Auto) 0 % (0.0-2.0); Eosinophils # (Auto) 0 K/mcL (0.0-0.7); Eosinophils % (Auto) 0 % (0.0-7.0); Granulocytes % (Auto) 79.7 % (38.0-78.0); Lymphocytes % (Auto) 13.5 % (15.5-49.0); Mean Cell Volume 87.9 fL (80.0-100.0); Mean Corpuscular HGB Conc 30.7 g/dL (31.0-36.0); Monocytes % (Auto) 6.8 % (1.0-12.0); Platelet Count 341 K/mcL (140-440); RBC 4.47 M/mcL (4.50-5.90); Red Cell Distribution Width 16.5 % (11.5-14.5)
[2017-12-05] MEDS: methylPREDNISolone SOD SUCC 125 MG/2 ML VIAL IV SCH (06:11)
[2017-12-05] MEDS: 0.9 % SODIUM CHLORIDE 10 ML SYRINGE IV SCH ×4 (06:11→22:31)
[2017-12-05 06:20] LABS: ALT/SGPT 10 U/l (0-40); Albumin 3.6 gm/dL (3.2-5.2); Albumin/Globulin Ratio 1.2 (1.0-2.3); Alkaline Phosphatase 90 U/L (39-117); Bilirubin,Direct < 0.2 mg/dL (0.0-0.3); Blood Urea Nitrogen 25 mg/dl (8-23); Gamma Glutamyl Transpeptidase 34 U/L (8-61)
[2017-12-05] MEDS: BUDESONIDE 0.5 MG/2 ML AMPUL.NEB NEB SCH ×3 (07:35→22:52)
[2017-12-05] MEDS: CARVEDILOL 6.25 MG TABLET PO SCH ×2 (07:54→16:57)
[2017-12-05] MEDS: POTASSIUM CHLORIDE 10 MEQ TABLET PO SCH (07:54)
[2017-12-05] MEDS ORDERED: predniSONE 20 MG TABLET PO SCH (08:00)
[2017-12-05] MEDS: HYDROcodone/APAP 5/325MG TABLET PO PRN ×4 (08:03→22:32)
[2017-12-05] MEDS: FINASTERIDE 5 MG TABLET PO SCH (09:12)
[2017-12-05] MEDS: ASPIRIN 81 MG TAB.CHEW PO SCH (09:12)
[2017-12-05] MEDS: LISINOPRIL 10 MG TABLET PO SCH (09:12)
[2017-12-05] MEDS: FUROSEMIDE 40 MG TABLET PO SCH ×2 (09:12→22:32)
[2017-12-05] MEDS: MODAFINIL 200 MG TABLET PO SCH (09:13)
[2017-12-05] MEDS: SUCRALFATE 1 GM TABLET PO SCH ×2 (09:13→22:30)
[2017-12-05] MEDS: GABAPENTIN 300 MG CAPSULE PO SCH ×3 (09:13→22:33)
[2017-12-05] MEDS: BACLOFEN 10 MG TABLET PO SCH ×3 (09:13→22:35)
[2017-12-05] MEDS: ENOXAPARIN 30 MG/0.3 ML SYRINGE SQ SCH ×2 (09:13→22:43)
[2017-12-05] MEDS: FAMOTIDINE/PF 20 MG/2 ML VIAL IV SCH ×2 (09:13→22:36)
[2017-12-05] MEDS: acetaZOLAMIDE 250 MG TABLET PO SCH ×2 (09:13→22:36)
[2017-12-05] MEDS: LEVOFLOXACIN 750 MG/150 ML BAG IV SCH (09:19)
[2017-12-05] MEDS: INSULIN GLARGINE, HUMAN 1 UNIT/0.01 ML SQ SCH (09:21)
[2017-12-05 10:52] LABS: ABG Methemoglobin 0.3 % (0.4-1.5); VBG Base Excess 2.3 (-2.0-2.0); VBG HCO3 28.2 mmol/L (24.0-28.0); VBG Oxygen Saturation 94.8 % (40.0-70.0); VBG PCO2 49.6 mmHg (41.0-51.0); VBG PH 7.37 U (7.32-7.42); VBG PO2 130 mmHg (25-40); VBG Total CO2 29.7 mmol/L (25.0-29.0)
--- NOTE | 2017-12-05 12:37 | Internal Med Progress Note ---
Medical - PN: Subj Patient information: Note initiated : 12/05/17 at 12:33 pm Service Date, if different from initiated Date: [] Patient: Dangelo Alvares 62 y/o M admitted on 12/04/17 for shortness of breath. Chief Complaint: [] Interval history: Mr. Alvares is a 62 year old M a resident of [facility], presented to the emergency room for altered mental status and shortness of breath. The patient was drowsy on my evaluation only able to answer some questions, had received some Ativan a while ago. Most of the history from chart review. The patient apparently was brought in to the hospital because of shortness of breath that has been going on for the last 7 days, he has also complained about increased frequency of cough. There is no description about the sputum. The patient has history of COPD, he uses CPAP at night. He notes that he has not been able to lie down flat and sleep for the last few days and has needed to sit upright in sleep. He is unaware of his CPAP settings. The patient was admitted to this hospital in August for hypoxic hypercapnic respiratory failure which is attributed to opiate use. Chest x-ray then was interpreted as congestive heart failure. The patient in the emergency room was afebrile with a temperature of 98.3 heart rate 100, blood pressure was stable 127-105 patient was bleeding from 16-25, saturating at the [place] 0.82% on oxygen Blood gas on presentation showed pH of 7.24, PO2 72, PCO2 88, lactic acid 0.6. The patient was started on BiPAP therapy. Repeat ABG done in our shows improvement in that gas but pH 7.27 and PCO2 of 78. The patient had not received steroids in the ED, blood cultures were obtained after the initiation of antibiotics. Labs show patient has a white count of 16,000 hemoglobin 13 platelets 363. Electrolytes stable glucose elevated at 216, lactic acid is 1 pro calcitonin 0.12 troponin is negative. Chest x-ray shows cardiomegaly mild CHF but much better compared to previous x-ray does have some reticulonodular pattern bilaterally parenchyma. No obvious infiltrate noted. Patient is being admitted to PCU status for further monitoring. In August the patient was admitted with a similar diagnosis part of his hypercapnic respiratory failure was attributed to use of narcotics. 12/05 Pt seen examined, was bit confused yesterday, but today is much better, off bipap, vbg d one shows ph and pco2 levels acceptable off bipap, xfer to med surgy glucose high, needing iv insulin, swithc iv to oral prednisone, lispro high dose sliding scale pt toelrating po well Transfer to medical status. Pertinent ROS: Denies headache, dizziness Denies chest pain, palpitations Denies cough or shortness of breath Denies abdominal pain, nausea or vomiting. - Constitutional Vitals: Vital Signs Temp Pulse Resp BP Pulse Ox 97.3 F 88 18 162/81 96 12/05/17 08:01 12/05/17 11:57 12/05/17 11:57 12/05/17 10:12 12/05/17 10:12 Period Temp Pulse Resp BP Sys/Fink Pulse Ox Last 24 Hr 97.3 F-98.4 F 72-101 13-23 101-187/66-111 92-98 Intake and Output 12/04/17 12/05/17 12/05/17 21:59 05:59 13:59 Intake Total 1560 / 1560 800 / 800 980 / 980 Output Total 850 / 850 810 / 810 220 / 220 Balance 710 / 710 -10 / -10 760 / 760 Weight 398 lb 9.6 oz Intake & Output: Intake & Output 12/04/17 12/05/17 12/05/17 21:59 05:59 13:59 Intake Total 1560 / 1560 800 / 800 980 / 980 Output Total 850 / 850 810 / 810 220 / 220 Balance 710 / 710 -10 / -10 760 / 760 Weight 398 lb 9.6 oz Intake: Oral 1560 / 1560 800 / 800 980 / 980 Output: Urine Catheter Amount 850 / 850 810 / 810 220 / 220 Other: Meal orange sherbert Breakfast Percent of Meal Consumed 100% 100% Feeding Ability Independent Urine Appearance Clear Clear Cloudy Uretheral (Short) Clear Clear Clear Urine Color Pale Dark Yellow Bright Yellow Uretheral (Short) Bright Yellow Bright Yellow Bright Yellow Stool Size Moderate Smear Stool Color Brown Brown Stool Consistency Liquid Alison # of times incontinent of 1 Bowels Exam: Constitutional; Afebrile, cooperative, alert, not in distress. Respiratory system: Air Entry equal on both sides, . decreased air entry bilaterally, but severe obesity could limit proper auscultation. no wheezing noted. CVS- Rate rhythm regular, S1,S2 heard, no gallop, no rub. distant heart sounds. Abdomen- Soft nontender abdomen, no organomegaly, no tenderness, no guarding or rigidity, large pannus PEAN[place] SHAKER- AOOx3, moving all extremities, no gross focal deficit noted. Medical - PN: Obj Da - Labs CBC & Chem 7: 12/05/17 04:07 12/05/17 04:07 Labs: Abnormal Lab Results 12/05/17 12/05/17 12/05/17 10:28 04:07 04:07 WBC 14.5 H RBC 4.47 L Hgb 12.1 L Hct 39.3 L MCHC 30.7 L RDW 16.5 H Gran % 79.7 H Lymph % (Auto) 13.5 L Gran # 11.6 H [place] # (Auto) 1.0 H D-Dimer ABG Methemoglobin 0.3 L VBG pO2 130 H VBG HCO3 28.2 H VBG Total CO2 29.7 H VBG O2 Saturation 94.8 H VBG Base Excess 2.3 H Carboxyhemoglobin 3.1 H Total Hemoglobin 12.0 L BUN 25 H Glucose 301 H Uric Acid 9.0 H Phosphorus 2.6 L 12/04/17 12/04/17 12/04/17 04:00 04:00 04:00 WBC 16.0 H RBC Hgb 13.2 L Hct 40.7 L MCHC RDW 16.5 H Gran % Lymph % (Auto) Gran # 11.8 H [place] # (Auto) 1.1 H D-Dimer 0.75 H ABG Methemoglobin VBG pO2 VBG HCO3 VBG Total CO2 VBG O2 Saturation VBG Base Excess Carboxyhemoglobin Total Hemoglobin BUN Glucose 216 H Uric Acid Phosphorus Meds: Medications Acetaminophen (Tylenol) 650 mg PO Q4-6HP PRN PRN Reason: PAIN/FEVER > 101 Hydrocodone Bitart/Acetaminophen ([place] 5/325mg) 1 - 2 tab PO Q4HP PRN PRN Reason: Pain Last Admin: 12/05/17 08:03 Dose: 1 tab Acetazolamide (Acetazolamide) 250 mg PO BID [facility] Last Admin: 12/05/17 09:13 Dose: 250 mg Albuterol/Ipratropium (Duoneb) 3 ml NEB Q4HRT RAINA Last Admin: 12/05/17 11:45 Dose: 3 ml Aspirin (Aspirin) 81 mg PO DAILY [facility] Last Admin: 12/05/17 09:12 Dose: 81 mg Baclofen (Lioresal) 10 mg PO TID [facility] Last Admin: 12/05/17 09:13 Dose: 10 mg Bisacodyl (Dulcolax) 10 mg [place] DAILYP PRN PRN Reason: Constipation Budesonide (Pulmicort) 0.5 mg NEB BID [facility] Last Admin: 12/05/17 07:35 Dose: Not Given [facility] Last Admin: 12/05/17 07:54 Dose: 12.5 mg Dextrose (Dextrose 50%) 0 ml IV UD PRN PRN Reason: Hypoglycemia Diagnostic Test (Pha) (Accu-Chek) 1 each FS [facility] Last Admin: 12/05/17 12:24 Dose: 1 each Duloxetine HCl (Cymbalta) 60 mg PO HS [facility] Last Admin: 12/04/17 20:23 Dose: 60 mg Enoxaparin Sodium (Lovenox) 30 mg SQ BID [facility] Last Admin: 12/05/17 09:13 Dose: 30 mg Famotidine (Pepcid) 20 mg IV Q12 [facility] Last Admin: 12/05/17 09:13 Dose: 20 mg Finasteride (Proscar) 5 mg PO DAILY [facility] Last Admin: 12/05/17 09:12 Dose: 5 mg Furosemide (Lasix) 40 mg PO BID [facility] Last Admin: 12/05/17 09:12 Dose: 40 mg Gabapentin (Neurontin) 600 mg PO TID [facility] Last Admin: 12/05/17 09:13 Dose: 600 mg Glucose (Insta-Glucose) 15 gm PO PRN PRN PRN Reason: Hypoglycemia Levofloxacin (Levaquin) 750 mg in 150 mls @ 100 mls/hr IV DAILY [facility] Last Admin: 12/05/17 09:19 Dose: 100 mls/hr Insulin Glargine (Lantus) 50 unit SQ DAILY [facility] Last Admin: 12/05/17 09:21 Dose: 50 unit Insulin Human Lispro (Humalog) 0 unit SQ ACHS [facility]; Protocol Last Admin: 12/05/17 12:25 Dose: 18 unit Lisinopril (Zestril) 10 mg PO DAILY [facility] Last Admin: 12/05/17 09:12 Dose: 10 mg Magnesium Hydroxide (Milk Of Magnesia) 30 ml PO DAILYP PRN PRN Reason: Constipation Modafinil (Provigil) 200 mg PO DAILY [facility] Last Admin: 12/05/17 09:13 Dose: 200 mg Montelukast Sodium (Singular) 10 mg PO [facility] Last Admin: 12/04/17 20:24 Dose: 10 mg Naloxone HCl (Narcan) 0.1 mg IV Q2MIN PRN PRN Reason: Opiate Reversal Ondansetron HCl (Zofran) 4 mg IV Q4-6HP PRN PRN Reason: Nausea And Vomiting Lubiprostone [ Amitiza] 24 Mcg Capsule 1 dose PO BID [facility] Last Admin: 12/05/17 09:14 Dose: 1 dose Potassium Chloride (Kdur) 10 meq PO [facility] Last Admin: 12/05/17 07:54 Dose: 10 meq Prednisone (Prednisone) 40 mg PO [facility] Last Admin: 12/05/17 07:53 Dose: 40 mg Senna (Senokot) 2 tab PO [facility] Simvastatin (Zocor) 5 mg PO [facility] Last Admin: 12/04/17 20:24 Dose: 5 mg Sodium Chloride (Saline Flush) 10 ml IV Q8 [facility] Last Admin: 12/05/17 09:19 Dose: 10 ml Sucralfate (Carafate) 2 gm PO BID [facility] Last Admin: 12/05/17 09:13 Dose: 2 gm Tamsulosin HCl (Flomax) 0.4 mg PO [facility] Last Admin: 12/04/17 20:23 Dose: 0.4 mg - ABG Interpretation ABG results: 12/05/17 10:28 ABG Methemoglobin 0.3 L VBG pH 7.37 VBG pCO2 49.6 VBG pO2 130 H VBG HCO3 28.2 H VBG Total CO2 29.7 H VBG O2 Saturation 94.8 H VBG Base Excess 2.3 H Medical - PN: A/P - Time Spent With Patient Total time spent is greater than 50% in coordination of care (as documented) at patient's floor/unit and/or counseling patient: - Narrative A/P Narrative: A/P Acute hypoxic, Hypercapenic Respiratory Failure Acute COPD exacerbation Pneumonia? Morbid obesity Obstructive sleep apnea Chronic Pain, on narcotics Diabetes Mellitus, On Insulin Hypertension Congestive Heart failure BPH Anxiety Distorder Plan transfer to [facility] surgy Continue with cpap at night now, pt rdoing much better, vbg stable off bipap. continue DUonebs q4hrs, levofloxacin as well as steroids, swithc iv solumedrol to oral prednisone. mrsa screen was positive, vanco not added as cxr is neg for pna. lantus, humalog ssi to keep glucose in control, hold metformin for now, high dose ssi, Glucose is uncontrolled but i expect better control with lower steroid doses and increased insulin coverage. bp stable, resume home bp medications hold ms contin, given previous admission from narcotic use, continue short acting hydrocodone for now, pt has not complained about pain to me so far. bowel regime Resume home meds for other chr conditions. DVT enoxaparin DNR code status, OK to intubate Medical - PN: Qual - Stroke Symptom Onset Unknown: No - VTE Deep Vein Thrombosis/Pulmonary Embolism Present on Admission: No
[2017-12-05] MEDS ORDERED: DEXTROSE 31 GM ORAL.SUSP PO PRN (14:03)
[2017-12-05] MEDS ORDERED: BISACODYL 10 MG SUPP.RECT PR PRN (14:03)
[2017-12-05] MEDS ORDERED: ACETAMINOPHEN 325 MG TABLET PO PRN (14:03)
[2017-12-05] MEDS ORDERED: DEXTROSE 50% 50 ML VIAL IV PRN (14:03)
[2017-12-05] MEDS ORDERED: SENNOSIDES 1 TABLET PO SCH (14:03)
[2017-12-05] MEDS ORDERED: NALOXONE HCL 0.4 MG/ML VIAL IV PRN (14:03)
[2017-12-05] MEDS ORDERED: ONDANSETRON 4 MG/2 ML VIAL IV PRN (14:03)
[2017-12-05] MEDS ORDERED: MAGNESIUM HYDROXIDE 30 ML ORAL.SUSP PO PRN (14:03)
--- NOTE | 2017-12-05 14:41 | General Surgery Consult Note ---
History of Present Illness Patient information: Note initiated : 12/05/17 at 2:31 pm Service Date, if different from initiated Date: [] Patient: Dangelo Alvares 62 y/o M admitted on 12/04/17 for shortness of breath. Chief Complaint: [] Consult date: 12/04/17 Requesting physician: Vipin Scott (skin ulcers / lesions) History of present illness: 12/05/2017 I saw this patient in ICU 120 bed A along with TETLIN RN taking care of this patient. Reason for consultation: Evaluation and recommendations for ulcerations around the external genitalia perineal region and skin lesions involving the forearms right leg and right face. Mister Pathak is a 62-year-old super morbid obese man. About 5 foot 10 inches tall and weighs nearly 400 pounds. He is a resident at longterm facility in [facility]. He was admitted via emergency with the sudden change in his condition and altered mentation with hypoxia. He has a background of multiple comorbid medical problems. He is a former smoker. History of diabetes, hypertension, lumbago, memory dysfunction and COPD with DONNY. Yesterday, he was noted to be confused and was saturating around 80. At this time he was transported to the emergency room evaluated and admitted to ICU for further monitoring and stabilization of his condition. During examination, he was noted to have moist dermatitis around the scrotum perineal area with epidermal ulcerations and chronic skin lesions of both forearms, right leg and a skin rash/ulcerative lesion of the right ear. There is no evidence of any purulence, crepitation, bleeding and local warmth. No cellulitis. These lesions are chronic. Medications and Allergies Home Medications Medication Instructions Recorded Confirmed Type Acetaminophen [Tylenol Extra 1,000 mg PO Q6H PRN 10/02/15 12/04/17 History Strength] Baclofen [Lioresal] 10 mg PO TID 10/02/15 12/04/17 History Bisacodyl [Dulcolax] 10 mg [place] DAILYP PRN 10/02/15 12/04/17 History Carvedilol [Coreg] 12.5 mg PO BIDCC 10/02/15 12/04/17 History DULoxetine HCL [Cymbalta] 60 mg PO QHS 10/02/15 12/04/17 History Docusate Sodium [Colace] 100 mg PO BID 10/02/15 12/04/17 History Furosemide [Lasix] 40 mg PO BID 10/02/15 12/04/17 History Gabapentin 600 mg PO TID 10/02/15 12/04/17 History Insulin Aspart [Novolog] 1 unit SQ .COMPLEX 10/02/15 12/04/17 History Insulin Detemir [Levemir] 50 unit SQ QAM 10/02/15 12/04/17 History Lisinopril [Zestril] 10 mg PO DAILY 10/02/15 12/04/17 History Polyethylene Glycol 3350 [Miralax] 17 gm PO DAILYP PRN 10/02/15 12/04/17 History Potassium Chloride 10 meq PO DAILY 10/02/15 12/04/17 History Sucralfate [Carafate] 2 gm PO BID 10/02/15 12/04/17 History metFORMIN HCL [Fortamet] 1,000 mg PO BID 10/02/15 12/04/17 History morphine SULFATE [Morphine Sulfate] 30 mg PO BID 10/02/15 12/04/17 History Aspirin [Donna Chewable Aspirin] 81 mg PO DAILY 09/13/17 12/04/17 History Budesonide [Pulmicort] 0.5 mg NEB BID 09/13/17 12/04/17 History Finasteride [Proscar] 5 mg PO DAILY 09/13/17 12/04/17 History HYDROcodone/APAP 5/325MG [Golden 1 - 2 tab PO Q4HP PRN 09/13/17 12/04/17 History 5-325Mg] Ipratropium/Albuterol [Duoneb] 3 ml NEB Q6HRT 09/13/17 12/04/17 History Magnesium Hydroxide [Milk of 30 ml PO DAILYP PRN 09/13/17 12/04/17 History Magnesia] Modafinil [Provigil] 200 mg PO DAILY 09/13/17 12/04/17 History Montelukast [Singular] 10 mg PO HS 09/13/17 12/04/17 History Na Phos,M-B/Na Phos,Di-Ba [Fleets 1 dose DC DAILYP PRN 09/13/17 12/04/17 History Adult] Tamsulosin [Flomax] 0.4 mg PO HS 09/13/17 12/04/17 History acetaZOLAMIDE [Acetazolamide] 250 mg PO BID 09/13/17 12/04/17 History Lubiprostone [Amitiza] 24 mcg PO BID 12/04/17 12/04/17 History Pravastatin Sodium 10 mg PO ONCE 12/04/17 12/04/17 History guaiFENesin [Mucinex] 600 mg PO BID 12/04/17 12/04/17 History Allergies Allergy/AdvReac Type Severity Reaction Status Date / Time brimonidine Allergy Unknown Unknown Verified 12/04/17 03:54 gentamicin Allergy Unknown Unknown Verified 12/04/17 03:54 Exam Temp Pulse Resp BP Pulse Ox 98.2 F 88 18 148/103 96 12/05/17 12:12 12/05/17 12:12 12/05/17 12:12 12/05/17 12:12 12/05/17 12:12 - General physical appearance well developed, well nourished, moderate distress, chronically ill, obese (Sper morbidly obese and acyanotic.) - Eyes PERRL, normal ocular movement - ENT normal pinna, normal nares, normal mucosa, other (sinus condition may be frontal and maxillary) - Head Head exam IM: Present: atraumatic, normal inspection, normocephalic - Neck no masses, no bruits, trachea midline, no venous distension - Cardiovascular Cardiovascular exam IM: Present: tachycardia - Respiratory other (diminished air entry at lung bases, occasional rales.) - Abdomen Abdomen: Present: soft, non tender, bowel sounds - Genitourinary Present: normal penis with no external lesions, testicles present, other (Short catheter in place draining dark yellow urine.) - Integumentary Present: other (MOISTURE associated dermatitis of the groins and scrotum with epidermal ulceration and crust around the perineal area. Fungal dermatitis was also noted in the skin fold under left panniculus. He has fungal rash-like ringworm involving both the forearms and right leg. Long fingernails and this is probably secondary to pruritus of dry skin. He has a skin lesion of right pinna of external ear extending to the postauricular space without any evidence of acute inflammation, drainage or bleeding. Suspect chronic dermatitis versus psoriasis) - Neurologic Present: other (patient moves all his extremities. There is no focal neurologic deficit.) - Musculoskeletal Present: other (patient was in the bed but was able to separate out today any breakfast. His mental status has improved considerably since his admission last evening. By now he is alert orientated and ate a regular needle.) - Psychiatric Present: oriented to time, oriented to person, oriented to place, speech is normal Results - Labs 12/05/17 04:07 12/05/17 04:07 Abnormal lab results 12/05/17 12/05/17 12/05/17 Range/Units 04:07 04:07 10:28 WBC 14.5 H (4.5-11.0) K/mcL RBC 4.47 L (4.50-5.90) M/mcL Hgb 12.1 L (13.5-16.5) g/dL Hct 39.3 L (41.0-55.0) % MCHC 30.7 L (31.0-36.0) g/dL RDW 16.5 H (11.5-14.5) % Gran % 79.7 H (38.0-78.0) % Lymph % (Auto) 13.5 L (15.5-49.0) % Gran # 11.6 H (1.8-8.0) K/mcL [place] # (Auto) 1.0 H (0.1-0.9) K/mcL ABG Methemoglobin 0.3 L (0.4-1.5) % VBG pO2 130 H (25-40) mmHg VBG HCO3 28.2 H (24.0-28.0) mmol/L VBG Total CO2 29.7 H (25.0-29.0) mmol/L VBG O2 Saturation 94.8 H (40.0-70.0) % VBG Base Excess 2.3 H (-2.0-2.0) Carboxyhemoglobin 3.1 H (0.0-1.5) % THgb Total Hemoglobin 12.0 L (13.5-16.5) gm/dL BUN 25 H (8-23) mg/dl Glucose 301 H (70-105) mg/dL Uric Acid 9.0 H (2.5-8.0) mg/dL Phosphorus 2.6 L (2.7-4.5) mg/dL Diabetes panel 12/05/17 Range/Units 04:07 Sodium 137 (133-145) mmol/L Potassium 3.8 (3.3-5.1) mmol/L Chloride 99 (96-108) mmol/L Carbon Dioxide 26 (22-30) mmol/L BUN 25 H (8-23) mg/dl Creatinine 0.9 (0.7-1.2) mg/dl Glucose 301 H (70-105) mg/dL Calcium 9.2 (8.6-10.4) mg/dl AST 8 (0-37) U/l ALT 10 (0-40) U/l Alkaline Phosphatase 90 (39-117) U/L Total Protein 6.7 (5.9-8.4) gm/dL Albumin 3.6 (3.2-5.2) gm/dL Triglycerides 149 (<150) mg/dl Calcium panel 12/05/17 Range/Units 04:07 Calcium 9.2 (8.6-10.4) mg/dl Phosphorus 2.6 L (2.7-4.5) mg/dL Albumin 3.6 (3.2-5.2) gm/dL Pituitary panel 12/05/17 Range/Units 04:07 Sodium 137 (133-145) mmol/L Potassium 3.8 (3.3-5.1) mmol/L Chloride 99 (96-108) mmol/L Carbon Dioxide 26 (22-30) mmol/L BUN 25 H (8-23) mg/dl Creatinine 0.9 (0.7-1.2) mg/dl Glucose 301 H (70-105) mg/dL Calcium 9.2 (8.6-10.4) mg/dl Adrenal panel 12/05/17 Range/Units 04:07 Sodium 137 (133-145) mmol/L Potassium 3.8 (3.3-5.1) mmol/L Chloride 99 (96-108) mmol/L Carbon Dioxide 26 (22-30) mmol/L BUN 25 H (8-23) mg/dl Creatinine 0.9 (0.7-1.2) mg/dl Glucose 301 H (70-105) mg/dL Calcium 9.2 (8.6-10.4) mg/dl Total Bilirubin 0.2 (0.0-1.0) mg/dL AST 8 (0-37) U/l ALT 10 (0-40) U/l Alkaline Phosphatase 90 (39-117) U/L Total Protein 6.7 (5.9-8.4) gm/dL Albumin 3.6 (3.2-5.2) gm/dL All other labs normal. Assessment and Plan (1) Dermatitis associated with moisture from urinary incontinence Assessment: Moisture associated dermatitis of skin fold under panniculus and in the perineal area. This is responding to MIST treatments and topical application of antifungal cream. Other skin lesions of his forearm and leg are chronic, secondary to dry skin and the pruritus. Right earlobe and postauricular skin lesion is also chronic related to rash versus a patch of psoriasis. PLAN: Conservative management. Recommend frequent hand washing by the patient and trimming of his fingernails on a weekly basis. MIST treatments for moisture associated areas of skin around the genitalia perineal region and under the skin folds. This is to be followed by application of antifungal cream. Twice a day. Wear cotton gown and avoid doing any tight undergarment / underwear with elastic borders. No debridement needed at this time. We will follow this patient along with you as necessary once is still hospitalized and later at the wound Care clinic after discharge. Status: Chronic Priority: Medium Comment: Patient now has indwelling Short catheter that is draining urine away from this area. (2) Mental status change resolved Status: Acute Priority: High Comment: Patient was hypoxic and confused last evening but that has now resolved. He is awake alert, orientated, conversational and cooperative during interview and examination (3) Acute exacerbation of chronic obstructive airways disease Status: Acute Priority: Medium Comment: This is now improving. Patient is bringing up clear sputum without any evidence of purulence, bleeding or odor. He has a good cough reflex and is not aspirating.
[2017-12-05] MEDS: DULoxetine 30 MG CAPSULE PO SCH (22:30)
[2017-12-05] MEDS: TAMSULOSIN 0.4 MG CAPSULE PO SCH (22:34)
[2017-12-05] MEDS: MONTELUKAST 10 MG TABLET PO SCH (22:34)
[2017-12-05] MEDS: SIMVASTATIN 10 MG TABLET PO SCH (22:35)
[2017-12-06] MEDS: IPRATROPIUM/ALBUTEROL 3 ML AMPUL.NEB NEB SCH ×6 (03:30→23:24)
[2017-12-06] MEDS: HYDROcodone/APAP 5/325MG TABLET PO PRN ×6 (04:38→22:50)
[2017-12-06] MEDS: 0.9 % SODIUM CHLORIDE 10 ML SYRINGE IV SCH ×3 (04:45→21:00)
[2017-12-06 05:28] LABS: Basophils # (Auto) 0 K/mcL (0.0-0.3); Basophils % (Auto) 0.2 % (0.0-2.0); Eosinophils # (Auto) 0.1 K/mcL (0.0-0.7); Eosinophils % (Auto) 0.4 % (0.0-7.0); Granulocytes % (Auto) 70.8 % (38.0-78.0); Lymphocytes # (Auto) 3.2 K/mcL (1.5-4.8); Lymphocytes % (Auto) 19.7 % (15.5-49.0); Mean Corpuscular HGB Conc 31.8 g/dL (31.0-36.0); Mean Corpuscular Hemoglobin 27.6 pg (26.0-34.0); Monocytes # (Auto) 1.4 K/mcL (0.1-0.9); Monocytes % (Auto) 8.9 % (1.0-12.0); Platelet Count 352 K/mcL (140-440); RBC 4.57 M/mcL (4.50-5.90); Red Cell Distribution Width 16.7 % (11.5-14.5)
[2017-12-06 05:58] LABS: ALT/SGPT 11 U/l (0-40); Albumin 3.4 gm/dL (3.2-5.2); Alkaline Phosphatase 85 U/L (39-117); Bilirubin,Direct < 0.2 mg/dL (0.0-0.3); Blood Urea Nitrogen 23 mg/dl (8-23); Gamma Glutamyl Transpeptidase 36 U/L (8-61); Uric Acid 8.9 mg/dL (2.5-8.0)
[2017-12-06] MEDS: POTASSIUM CHLORIDE 10 MEQ TABLET PO SCH (07:32)
[2017-12-06] MEDS: CARVEDILOL 6.25 MG TABLET PO SCH ×2 (07:32→17:12)
[2017-12-06] MEDS: predniSONE 20 MG TABLET PO SCH (07:33)
[2017-12-06] MEDS: INSULIN LISPRO 1 UNIT/0.01 ML UNIT SQ SCH ×5 (07:36→21:05)
[2017-12-06] MEDS: BUDESONIDE 0.5 MG/2 ML AMPUL.NEB NEB SCH ×2 (07:39→19:08)
[2017-12-06] MEDS: FINASTERIDE 5 MG TABLET PO SCH (09:14)
[2017-12-06] MEDS: GABAPENTIN 300 MG CAPSULE PO SCH ×3 (09:14→20:19)
[2017-12-06] MEDS: SUCRALFATE 1 GM TABLET PO SCH ×2 (09:14→20:19)
[2017-12-06] MEDS: BACLOFEN 10 MG TABLET PO SCH ×3 (09:15→20:21)
[2017-12-06] MEDS: ENOXAPARIN 30 MG/0.3 ML SYRINGE SQ SCH ×2 (09:15→20:27)
[2017-12-06] MEDS: acetaZOLAMIDE 250 MG TABLET PO SCH ×2 (09:21→20:18)
[2017-12-06] MEDS: MODAFINIL 200 MG TABLET PO SCH (09:22)
[2017-12-06] MEDS: FUROSEMIDE 40 MG TABLET PO SCH ×2 (09:22→20:22)
[2017-12-06] MEDS: ASPIRIN 81 MG TAB.CHEW PO SCH (09:22)
[2017-12-06] MEDS: LISINOPRIL 10 MG TABLET PO SCH (09:22)
[2017-12-06] MEDS: INSULIN GLARGINE, HUMAN 1 UNIT/0.01 ML SQ SCH (09:22)
[2017-12-06] MEDS: FAMOTIDINE/PF 20 MG/2 ML VIAL IV SCH ×2 (09:23→20:55)
[2017-12-06] MEDS: LEVOFLOXACIN 750 MG/150 ML BAG IV SCH (09:23)
--- NOTE | 2017-12-06 13:38 | Internal Med Progress Note ---
Medical - PN: Subj Patient information: Note initiated : 12/06/17 at 1:35 pm Service Date, if different from initiated Date: [] Patient: Dangelo Alvares 62 y/o M admitted on 12/04/17 for shortness of breath. Chief Complaint: [] Interval history: Mr. Alvares is a 62 year old M a resident of [facility], presented to the emergency room for altered mental status and shortness of breath. The patient was drowsy on my evaluation only able to answer some questions, had received some Ativan a while ago. Most of the history from chart review. The patient apparently was brought in to the hospital because of shortness of breath that has been going on for the last 7 days, he has also complained about increased frequency of cough. There is no description about the sputum. The patient has history of COPD, he uses CPAP at night. He notes that he has not been able to lie down flat and sleep for the last few days and has needed to sit upright in sleep. He is unaware of his CPAP settings. The patient was admitted to this hospital in August for hypoxic hypercapnic respiratory failure which is attributed to opiate use. Chest x-ray then was interpreted as congestive heart failure. The patient in the emergency room was afebrile with a temperature of 98.3 heart rate 100, blood pressure was stable 127-105 patient was bleeding from 16-25, saturating at the [place] 0.82% on oxygen Blood gas on presentation showed pH of 7.24, PO2 72, PCO2 88, lactic acid 0.6. The patient was started on BiPAP therapy. Repeat ABG done in our shows improvement in that gas but pH 7.27 and PCO2 of 78. The patient had not received steroids in the ED, blood cultures were obtained after the initiation of antibiotics. Labs show patient has a white count of 16,000 hemoglobin 13 platelets 363. Electrolytes stable glucose elevated at 216, lactic acid is 1 pro calcitonin 0.12 troponin is negative. Chest x-ray shows cardiomegaly mild CHF but much better compared to previous x-ray does have some reticulonodular pattern bilaterally parenchyma. No obvious infiltrate noted. Patient is being admitted to PCU status for further monitoring. In August the patient was admitted with a similar diagnosis part of his hypercapnic respiratory failure was attributed to use of narcotics. 12/05 Pt seen examined, was bit confused yesterday, but today is much better, off bipap, vbg d one shows ph and pco2 levels acceptable off bipap, xfer to med surgy glucose high, needing iv insulin, swithc iv to oral prednisone, lispro high dose sliding scale pt toelrating po well Transfer to medical status. 12/06 Pt seen examined, no acute overnight issues, some issues with the cpap mask, but otherwise pt doing well glucose levels still high, pt to be started on metformin, I am also adding 6 units lispro before each meal in addition to the ssi insulin continue oral steroids, monitor anticipate d/c to snf in AM discussed wit hthe patient the need to not take morphine, his pain level is not any worse now without the morphine, Pertinent ROS: Denies headache, dizziness Denies chest pain, palpitations Denies cough or shortness of breath Denies abdominal pain, nausea or vomiting. - Constitutional Vitals: Vital Signs Temp Pulse Resp BP Pulse Ox 98 F 80 16 152/66 95 12/06/17 11:58 12/06/17 11:41 12/06/17 11:58 12/06/17 11:58 12/06/17 11:58 Period Temp Pulse Resp BP Sys/Fink Pulse Ox Last 24 Hr 97.5 F-99.2 F 73-91 16-20 125-152/64-90 91-98 Intake and Output 12/05/17 12/06/17 12/06/17 21:59 05:59 13:59 Intake Total 960 / 960 280 / 280 750 / 750 Output Total 800 / 800 1300 / 1300 875 / 875 Balance 160 / 160 -1020 / -1020 -125 / -125 Weight 388 lb Intake & Output: Intake & Output 12/05/17 12/06/17 12/06/17 21:59 05:59 13:59 Intake Total 960 / 960 280 / 280 750 / 750 Output Total 800 / 800 1300 / 1300 875 / 875 Balance 160 / 160 -1020 / -1020 -125 / -125 Weight 388 lb Intake: IV 150 / 150 Oral 960 / 960 280 / 280 600 / 600 Output: Void Amount 800 / 800 1300 / 1300 875 / 875 # of times incontinent of urine 0 / 0 0 / 0 Other: Meal Pudding, jalepeno chips Lunch Percent of Meal Consumed 100% 100% Feeding Ability Independent Urine Appearance Clear Clear Clear Urine Color Bright Yellow Bright Yellow Dark Yellow Urine Odor Normal Stool Size Small Small Stool Color Brown Brown Stool Consistency Loose Soft # Voids 1 1 # Bowel Movements 1 1 # of times incontinent of 0 0 Bowels Exam: Constitutional; Afebrile, cooperative, alert, not in distress. morbidly obese Respiratory system: Air Entry equal on both sides, very poor air entry, but no wheezing, pt speaking full sentences, no accessory muscle use CVS- Rate rhythm regular, S1,S2 heard, no gallop, no rub. Abdomen- Soft nontender abdomen, large pannus INTERNAL MEDICINE PHYSICIAN- AOOx3, moving all extremities, no gross focal deficit noted. Medical - PN: Obj Da - Labs CBC & Chem 7: 12/06/17 04:23 12/06/17 04:23 Labs: Abnormal Lab Results 12/06/17 12/06/17 12/05/17 04:23 04:23 10:28 WBC 16.1 H RBC Hgb 12.6 L Hct 39.7 L MCHC RDW 16.7 H Gran % Lymph % (Auto) Gran # 11.4 H [place] # (Auto) 1.4 H D-Dimer ABG Methemoglobin 0.3 L VBG pO2 130 H VBG HCO3 28.2 H VBG Total CO2 29.7 H VBG O2 Saturation 94.8 H VBG Base Excess 2.3 H Carboxyhemoglobin 3.1 H Total Hemoglobin 12.0 L BUN Glucose 197 H Uric Acid 8.9 H Phosphorus 2.3 L Triglycerides 194 H 12/05/17 12/05/17 12/04/17 04:07 04:07 04:00 WBC 14.5 H RBC 4.47 L Hgb 12.1 L Hct 39.3 L MCHC 30.7 L RDW 16.5 H Gran % 79.7 H Lymph % (Auto) 13.5 L Gran # 11.6 H [place] # (Auto) 1.0 H D-Dimer 0.75 H ABG Methemoglobin VBG pO2 VBG HCO3 VBG Total CO2 VBG O2 Saturation VBG Base Excess Carboxyhemoglobin Total Hemoglobin BUN 25 H Glucose 301 H Uric Acid 9.0 H Phosphorus 2.6 L Triglycerides 12/04/17 12/04/17 04:00 04:00 WBC 16.0 H RBC Hgb 13.2 L Hct 40.7 L MCHC RDW 16.5 H Gran % Lymph % (Auto) Gran # 11.8 H [place] # (Auto) 1.1 H D-Dimer ABG Methemoglobin VBG pO2 VBG HCO3 VBG Total CO2 VBG O2 Saturation VBG Base Excess Carboxyhemoglobin Total Hemoglobin BUN Glucose 216 H Uric Acid Phosphorus Triglycerides Meds: Medications Acetaminophen (Tylenol) 650 mg PO Q4-6HP PRN PRN Reason: PAIN/FEVER > 101 Last Admin: 12/06/17 06:03 Dose: 650 mg Hydrocodone Bitart/Acetaminophen ([place] 5/325mg) 1 - 2 tab PO Q4HP PRN PRN Reason: Pain Last Admin: 12/06/17 10:19 Dose: 1 tab Acetazolamide (Acetazolamide) 250 mg PO BID [facility] Last Admin: 12/06/17 09:21 Dose: 250 mg Albuterol/Ipratropium (Duoneb) 3 ml NEB Q4HRT [facility] Last Admin: 12/06/17 11:41 Dose: 3 ml Aspirin (Aspirin) 81 mg PO DAILY [facility] Last Admin: 12/06/17 09:22 Dose: 81 mg Baclofen (Lioresal) 10 mg PO TID [facility] Last Admin: 12/06/17 09:15 Dose: 10 mg Bisacodyl (Dulcolax) 10 mg [place] DAILYP PRN PRN Reason: Constipation Budesonide (Pulmicort) 0.5 mg NEB BID [facility] Last Admin: 12/06/17 07:39 Dose: 0.5 mg Carvedilol (Coreg) 12.5 mg PO BIDCC [facility] Last Admin: 12/06/17 07:32 Dose: 12.5 mg Dextrose (Dextrose 50%) 0 ml IV UD PRN PRN Reason: Hypoglycemia Diagnostic Test (Pha) (Accu-Chek) 1 each FS ACHS [facility] Last Admin: 12/06/17 11:31 Dose: 1 each Duloxetine HCl (Cymbalta) 60 mg PO HS [facility] Last Admin: 12/05/17 22:30 Dose: 60 mg Enoxaparin Sodium (Lovenox) 30 mg SQ BID [facility] Last Admin: 12/06/17 09:15 Dose: 30 mg Famotidine (Pepcid) 20 mg IV Q12 [facility] Last Admin: 12/06/17 09:23 Dose: 20 mg Finasteride (Proscar) 5 mg PO DAILY [facility] Last Admin: 12/06/17 09:14 Dose: 5 mg Furosemide (Lasix) 40 mg PO BID [facility] Last Admin: 12/06/17 09:22 Dose: 40 mg Gabapentin (Neurontin) 600 mg PO TID [facility] Last Admin: 12/06/17 09:14 Dose: 600 mg Glucose (Insta-Glucose) 15 gm PO PRN PRN PRN Reason: Hypoglycemia Levofloxacin (Levaquin) 750 mg in 150 mls @ 100 mls/hr IV DAILY [facility] Last Infusion: 12/06/17 11:39 Dose: Infused Insulin Glargine (Lantus) 50 unit SQ DAILY [facility] Last Admin: 12/06/17 09:22 Dose: 50 unit Insulin Human Lispro (Humalog) 0 unit SQ [facility]; Protocol Last Admin: 12/06/17 11:39 Dose: 15 unit Insulin Human Lispro (Humalog) 6 unit SQ [facility] Lisinopril (Zestril) 10 mg PO DAILY [facility] Last Admin: 12/06/17 09:22 Dose: 10 mg Magnesium Hydroxide (Milk Of Magnesia) 30 ml PO DAILYP PRN PRN Reason: Constipation Metformin HCl (Glucophage) 1,000 mg PO BIDCC [facility] Modafinil (Provigil) 200 mg PO DAILY [facility] Last Admin: 12/06/17 09:22 Dose: 200 mg Montelukast Sodium (Singular) 10 mg PO [facility] Last Admin: 12/05/17 22:34 Dose: 10 mg Naloxone HCl (Narcan) 0.1 mg IV Q2MIN PRN PRN Reason: Opiate Reversal Ondansetron HCl (Zofran) 4 mg IV Q4-6HP PRN PRN Reason: Nausea And Vomiting Potassium Chloride (Kdur) 10 meq PO [facility] Last Admin: 12/06/17 07:32 Dose: 10 meq Prednisone (Prednisone) 40 mg PO [facility] Last Admin: 12/06/17 07:33 Dose: 40 mg Senna (Senokot) 2 tab PO [facility] Simvastatin (Zocor) 5 mg PO [facility] Last Admin: 12/05/17 22:35 Dose: 5 mg Sodium Chloride (Saline Flush) 10 ml IV Q8 [facility] Last Admin: 12/06/17 04:45 Dose: 10 ml Sucralfate (Carafate) 2 gm PO BID [facility] Last Admin: 12/06/17 09:14 Dose: 2 gm Tamsulosin HCl (Flomax) 0.4 mg PO HS [facility] Last Admin: 12/05/17 22:34 Dose: 0.4 mg - ABG Interpretation ABG results: 12/05/17 10:28 ABG Methemoglobin 0.3 L VBG pH 7.37 VBG pCO2 49.6 VBG pO2 130 H VBG HCO3 28.2 H VBG Total CO2 29.7 H VBG O2 Saturation 94.8 H VBG Base Excess 2.3 H Medical - PN: A/P - Time Spent With Patient Total time spent is greater than 50% in coordination of care (as documented) at patient's floor/unit and/or counseling patient: - Narrative A/P Narrative: A/P Acute hypoxic, Hypercapenic Respiratory Failure Acute COPD exacerbation Pneumonia? Morbid obesity Obstructive sleep apnea Chronic Pain, on narcotics Diabetes Mellitus, On Insulin Hypertension Congestive Heart failure BPH Anxiety Distorder Plan Continue with cpap at night now, pt rdoing much better, vbg stable off bipap. continue DUonebs q4hrs, levofloxacin as well as steroids, on oral steroids now mrsa screen was positive, vanco not added as cxr is neg for pna. lantus, humalog ssi to keep glucose in control, hold metformin for now, high dose ssi, Glucose is uncontrolled but i expect better control with lower steroid doses and increased insulin coverage. also added metformin as well as 6 units before each meal bp stable, resume home bp medications hold ms contin, given previous admission from narcotic use, continue short acting hydrocodone for now, pt has not complained about pain to me so far. bowel regime Resume home meds for other chr conditions. appreciate help from wound care DVT enoxaparin DNR code status, OK to intubate anticipate d/c back to snf in am Medical - PN: Qual - Stroke Symptom Onset Unknown: No - VTE Deep Vein Thrombosis/Pulmonary Embolism Present on Admission: No
[2017-12-06] MEDS: metFORMIN 500 MG TABLET PO SCH (17:12)
[2017-12-06] MEDS ORDERED: traZODone HCL 50 MG TABLET PO PRN (19:25)
[2017-12-06] MEDS: TAMSULOSIN 0.4 MG CAPSULE PO SCH (20:20)
[2017-12-06] MEDS: DULoxetine 30 MG CAPSULE PO SCH (20:21)
[2017-12-06] MEDS: SIMVASTATIN 10 MG TABLET PO SCH (20:22)
[2017-12-06] MEDS: MONTELUKAST 10 MG TABLET PO SCH (20:22)
[2017-12-07] MEDS: HYDROcodone/APAP 5/325MG TABLET PO PRN ×2 (01:17→09:15)
[2017-12-07] MEDS: IPRATROPIUM/ALBUTEROL 3 ML AMPUL.NEB NEB SCH ×3 (03:51→11:40)
[2017-12-07 06:56] LABS: Basophils # (Auto) 0.1 K/mcL (0.0-0.3); Basophils % (Auto) 0.4 % (0.0-2.0); Eosinophils # (Auto) 0.1 K/mcL (0.0-0.7); Eosinophils % (Auto) 0.9 % (0.0-7.0); Granulocytes % (Auto) 67.5 % (38.0-78.0); Lymphocytes # (Auto) 3.2 K/mcL (1.5-4.8); Lymphocytes % (Auto) 22.6 % (15.5-49.0); Mean Cell Volume 87.9 fL (80.0-100.0); Mean Corpuscular HGB Conc 31.4 g/dL (31.0-36.0); Mean Corpuscular Hemoglobin 27.6 pg (26.0-34.0); Monocytes # (Auto) 1.2 K/mcL (0.1-0.9); Monocytes % (Auto) 8.6 % (1.0-12.0); Platelet Count 379 K/mcL (140-440); RBC 5.06 M/mcL (4.50-5.90); Red Cell Distribution Width 16.7 % (11.5-14.5)
[2017-12-07 07:29] LABS: ALT/SGPT 15 U/l (0-40); Albumin/Globulin Ratio 1.3 (1.0-2.3); Alkaline Phosphatase 93 U/L (39-117); Bilirubin,Direct < 0.2 mg/dL (0.0-0.3); Blood Urea Nitrogen 23 mg/dl (8-23); Gamma Glutamyl Transpeptidase 35 U/L (8-61); Uric Acid 8.2 mg/dL (2.5-8.0)
[2017-12-07] MEDS: BUDESONIDE 0.5 MG/2 ML AMPUL.NEB NEB SCH (07:31)
[2017-12-07] MEDS: INSULIN LISPRO 1 UNIT/0.01 ML UNIT SQ SCH ×4 (07:38→12:15)
[2017-12-07] MEDS ORDERED: FAMOTIDINE 20 MG TABLET PO SCH (09:00)
[2017-12-07] MEDS: ASPIRIN 81 MG TAB.CHEW PO SCH (09:08)
[2017-12-07] MEDS: FUROSEMIDE 40 MG TABLET PO SCH (09:08)
[2017-12-07] MEDS: BACLOFEN 10 MG TABLET PO SCH (09:08)
[2017-12-07] MEDS: predniSONE 20 MG TABLET PO SCH (09:09)
[2017-12-07] MEDS: CARVEDILOL 6.25 MG TABLET PO SCH (09:09)
[2017-12-07] MEDS: GABAPENTIN 300 MG CAPSULE PO SCH (09:09)
[2017-12-07] MEDS: LISINOPRIL 10 MG TABLET PO SCH (09:09)
[2017-12-07] MEDS: ENOXAPARIN 30 MG/0.3 ML SYRINGE SQ SCH (09:10)
[2017-12-07] MEDS: metFORMIN 500 MG TABLET PO SCH (09:10)
[2017-12-07] MEDS: FINASTERIDE 5 MG TABLET PO SCH (09:10)
[2017-12-07] MEDS: POTASSIUM CHLORIDE 10 MEQ TABLET PO SCH (09:10)
[2017-12-07] MEDS: INSULIN GLARGINE, HUMAN 1 UNIT/0.01 ML SQ SCH (09:11)
[2017-12-07] MEDS: acetaZOLAMIDE 250 MG TABLET PO SCH (09:16)
--- NOTE | 2017-12-07 09:51 | Discharge Summary ---
Medical - DS: Prov Patient information: Note initiated : 12/07/17 at 9:38 am Service Date, if different from initiated Date: [] Patient: Dangelo Alvares 62 y/o M admitted on 12/04/17 for shortness of breath. Chief Complaint: [] Date of admission: 12/04/17 06:53 Discharge date: 12/07/17 Primary care physician: Nain Hanna Admitting clinician: Vipin Scott Consults: 12/04/17 09:37 Consult to Physician [CONS] Routine Comment: wound care consult Consulting Provider: Jamin Pang Reason For Exam: Physician to Consult Discharging clinician: Vipin Scott Medical - DS: Meds - Discharge Medications Prescriptions: Amoxicillin/Potassium Clav [Augmentin] 875 mg PO Q12H #10 tab HYDROcodone/APAP 5/325MG [[place] 5-325Mg] 1 - 2 tab PO Q4HP PRN #40 tab PRN Reason: Pain Miconazole 25 gm MC BID #60 powder predniSONE [Prednisone] 40 mg PO DAILY #6 tab Active and Home Medications: Home Medications Acetaminophen [Tylenol Extra Strength] 1,000 mg PO Q6H PRN 10/02/15 [History Confirmed 12/04/17 Last Taken 09/10/17 05:53] Baclofen [Lioresal] 10 mg PO TID 10/02/15 [History Confirmed 12/04/17 Last Taken 09/13/17 18:44] Bisacodyl [Dulcolax] 10 mg [place] DAILYP PRN 10/02/15 [History Confirmed 12/04/17 Last Taken 01/24/16] Carvedilol [Coreg] 12.5 mg PO BIDCC 10/02/15 [History Confirmed 12/04/17 Last Taken 09/13/17 18:50] DULoxetine HCL [Cymbalta] 60 mg PO QHS 10/02/15 [History Confirmed 12/04/17 Last Taken 09/12/17 19:45] Docusate Sodium [Colace] 100 mg PO BID 10/02/15 [History Confirmed 12/04/17 Last Taken 09/13/17 18:44] Furosemide [Lasix] 40 mg PO BID 10/02/15 [History Confirmed 12/04/17 Last Taken 09/13/17 18:44] Gabapentin 600 mg PO TID 10/02/15 [History Confirmed 12/04/17 Last Taken 18:44] Insulin Aspart [Novolog] 1 unit SQ .COMPLEX 10/02/15 [History Confirmed Last Taken 09/13/17 11:45] Insulin Detemir [Levemir] 50 unit SQ QAM 10/02/15 [History Confirmed 12/04/17 Last Taken 09/13/17 08:15] Lisinopril [Zestril] 10 mg PO DAILY 10/02/15 [History Confirmed 12/04/17 Last Taken 09/13/17 09:52] Polyethylene Glycol 3350 [Miralax] 17 gm PO DAILYP PRN 10/02/15 [History Confirmed 12/04/17 Last Taken 01/24/16] Potassium Chloride 10 meq PO DAILY 10/02/15 [History Confirmed 12/04/17 Last Taken 09/13/17 09:50] Sucralfate [Carafate] 2 gm PO BID 10/02/15 [History Confirmed 12/04/17 Last Taken 09/13/17 18:44] metFORMIN HCL [Fortamet] 1,000 mg PO BID 10/02/15 [History Confirmed 12/04/17 Last Taken 09/13/17 18:44] morphine SULFATE [Morphine Sulfate] 30 mg PO BID 10/02/15 [History Confirmed 02/11 Last Taken 09/13/17 17:45] Aspirin [Donna Chewable Aspirin] 81 mg PO DAILY 09/13/17 [History Confirmed 02/11 Last Taken 09/13/17 09:52] Budesonide [Pulmicort] 0.5 mg NEB BID 09/13/17 [History Confirmed 12/04/17 Last Taken 09/13/17 18:40] Finasteride [Proscar] 5 mg PO DAILY 09/13/17 [History Confirmed 12/04/17 Last Taken 09/13/17 09:52] HYDROcodone/APAP 5/325MG [[place] 5-325Mg] 1 - 2 tab PO Q4HP PRN 09/13/17 [ History Confirmed 12/04/17 Last Taken 09/12/17 02:50] Ipratropium/Albuterol [Duoneb] 3 ml NEB Q6HRT 09/13/17 [History Confirmed Last Taken 09/13/17 18:40] Magnesium Hydroxide [Milk of Magnesia] 30 ml PO DAILYP PRN 09/13/17 [History Confirmed 12/04/17 Last Taken Unknown] Modafinil [Provigil] 200 mg PO DAILY 09/13/17 [History Confirmed 12/04/17 Last Taken 09/13/17 09:50] Montelukast [Singular] 10 mg PO HS 09/13/17 [History Confirmed 12/04/17 Last Taken 09/12/17 19:45] Na Phos,M-B/Na Phos,Di-Ba [Fleets Adult] 1 dose [place] DAILYP PRN 09/13/17 [History Confirmed 12/04/17 Last Taken Unknown] Tamsulosin [Flomax] 0.4 mg PO HS 09/13/17 [History Confirmed 12/04/17 Last Taken 09/13/17 18:44] acetaZOLAMIDE [Acetazolamide] 250 mg PO BID 09/13/17 [History Confirmed Last Taken 09/13/17 18:44] Lubiprostone [Amitiza] 24 mcg PO BID 12/04/17 [History Confirmed 12/04/17 Last Taken Unknown] Pravastatin Sodium 10 mg PO ONCE 12/04/17 [History Confirmed 12/04/17 Last Taken Unknown] guaiFENesin [Mucinex] 600 mg PO BID 12/04/17 [History Confirmed 12/04/17 Last Taken Unknown] Medical - DS: Hosp Hospital course: Mr. Alvares is a 62 year old M a resident of [facility], presented to the emergency room for altered mental status and shortness of breath. The patient was drowsy on my evaluation only able to answer some questions, had received some Ativan a while ago. Most of the history from chart review. The patient apparently was brought in to the hospital because of shortness of breath that has been going on for the last 7 days, he has also complained about increased frequency of cough. There is no description about the sputum. The patient has history of COPD, he uses CPAP at night. He notes that he has not been able to lie down flat and sleep for the last few days and has needed to sit upright in sleep. He is unaware of his CPAP settings. The patient was admitted to this hospital in August for hypoxic hypercapnic respiratory failure which is attributed to opiate use. Chest x-ray then was interpreted as congestive heart failure. The patient in the emergency room was afebrile with a temperature of 98.3 heart rate 100, blood pressure was stable 127-105 patient was bleeding from 16-25, saturating at the [place] 0.82% on oxygen Blood gas on presentation showed pH of 7.24, PO2 72, PCO2 88, lactic acid 0.6. The patient was started on BiPAP therapy. Repeat ABG done in our shows improvement in that gas but pH 7.27 and PCO2 of 78. The patient had not received steroids in the ED, blood cultures were obtained after the initiation of antibiotics. Labs show patient has a white count of 16,000 hemoglobin 13 platelets 363. Electrolytes stable glucose elevated at 216, lactic acid is 1 pro calcitonin 0.12 troponin is negative. Chest x-ray shows cardiomegaly mild CHF but much better compared to previous x-ray does have some reticulonodular pattern bilaterally parenchyma. No obvious infiltrate noted. Patient is being admitted to PCU status for further monitoring. In August the patient was admitted with a similar diagnosis part of his hypercapnic respiratory failure was attributed to use of narcotics. Altered mental status/ Acute hypoxic Hypercapenic Respiratory failure- Due to a combination of narcotic use as well as COPD exacerbation, COPD initially treated with BIPAP therapy, with good response, off bipap the next day, he continued use of his regular cpap later. He was treated with steroids, duonebs and antibiotics, the patient sputum culture positive for h influenzae, he was on levoflox, will continue augmentin for another 5 days at discharge CHr pain- This is an issue patient has been struggling with, he is on morphine 30mg bid, he had a previous admission which was also similar to this one, where opiate was suspected. I did not give him any morhpine this visit, and there is no change in his pain level. I have stopped the long acting twice daily morphine , given that this has the potential to exacerbate his respiratory condition. Pt had no signs of withdrawal. He will continue the short acting hydrocodone for pain management. Diabetes- Glucose control difficult, but patient on steroids, I expect glucose control to be better once he is off steroids, he needs prednisone for 3 more days. He will remain on his home dose of diabetes medications, with titration per PCP. Wound care- Perineal region, due to fungal infection, to be treated with mist treatment daily and then anti fungal cream/ powder twice daily. The rest of the stay in the hospital was uneventful, patient at the time of discharge was back to baseline. tolerating po diet well Discharge diagnosis: COPD exacerbation, respiratory failure, - Time Spent with Patient Total time spent providing and/or coordinating discharge services: Greater than 30 minutes Medical - DS: Exam - Constitutional Vitals: Vital Signs Temp Pulse Pulse Pulse Resp BP Pulse Ox 12/07/17 07:44 82 20 12/07/17 06:54 97.4 F 18 154/66 95 12/07/17 03:53 97.1 F 80 16 168/60 12/06/17 23:24 81 20 12/06/17 23:12 98.6 F 92 H 20 158/70 12/06/17 19:09 105 H 22 95 12/06/17 18:37 94 12/06/17 18:33 99.2 F H 108 H 20 160/64 96 12/06/17 16:00 98.4 F 20 158/82 93 12/06/17 11:58 98 F 16 152/66 95 12/06/17 11:41 80 16 Intake and Output 12/06/17 12/07/17 12/07/17 21:59 05:59 13:59 Intake Total 1340 / 1340 1420 / 1420 Output Total 975 / 975 1175 / 1175 Balance 365 / 365 245 / 245 Intake: Oral 1340 / 1340 1420 / 1420 Output: Void Amount 975 / 975 1175 / 1175 # of times incontinent of urine 0 / 0 Other: Meal Dinner Percent of Meal Consumed 100% Feeding Ability Independent Urine Appearance Clear Clear Urine Color Bright Yellow Pale Urine Odor Normal Normal # Voids 1 Weight 375 lb Additional comments: Constitutional; Afebrile, cooperative, alert, not in distress. Respiratory system: Air Entry equal on both sides, No crackles or wheezing, no rhonchi. CVS- Rate rhythm regular, S1,S2 heard, no gallop, no rub. Abdomen- Soft nontender abdomen, large pannus LOADING MACHINE OPERATOR- AOOx3, moving all extremities, no gross focal deficit noted. Medical - DS: Data Labs on day of discharge: Labs from last 24 hours 12/07/17 12/07/17 06:17 06:17 WBC 14.0 H RBC 5.06 Hgb 13.9 Hct 44.5 MCV 87.9 MCH 27.6 MCHC 31.4 RDW 16.7 H Plt Count 379 MPV 8.0 Gran % 67.5 Lymph % (Auto) 22.6 [place] % (Auto) 8.6 Eos % (Auto) 0.9 Baso % (Auto) 0.4 Gran # 9.4 H Lymph # (Auto) 3.2 [place] # (Auto) 1.2 H Eos # (Auto) 0.1 Baso # (Auto) 0.1 Sodium 133 Potassium 3.6 Chloride 93 L Carbon Dioxide 30 Anion Gap 10.0 BUN 23 Creatinine 0.9 GFR Calculation 90 Glucose 224 H Uric Acid 8.2 H Calcium 9.4 Phosphorus 3.1 Magnesium 1.9 Total Bilirubin 0.2 Direct Bilirubin < 0.2 GGT 35 AST 15 ALT 15 Alkaline Phosphatase 93 Lactate Dehydrogenase 174 Total Protein 7.1 Albumin 4.0 Globulin 3.1 Albumin/Globulin Ratio 1.3 Triglycerides 213 H Preliminary micro results at discharge 12/04/17 04:40 Blood Culture - Preliminary Blood 12/04/17 04:00 Blood Culture - Preliminary Blood Medical - DS: A/P - Patient/Caregiver Discharge Instructions Activity: as per physical therapy Diet: Consistent Carbohydrate Additional Instructions: Wound Care recommendations : Recommend frequent hand washing by the patient and trimming of his fingernails on a weekly basis. MIST treatments for moisture associated areas of skin around the genitalia perineal region and under the skin folds. This is to be followed by application of antifungal cream/powder. Twice a day. Wear cotton gown and avoid doing any tight undergarment / underwear with elastic borders. Follow up in wound care clinic with Dr Pang in 1-2 weeks Follow up with PCP in 1-2 weeks Take amoxicillin for 5 more days Take prednisone for 3 more days with foodl PCP to manage insulin and titrate to response. Go to the ER if fever, chest pain, shortness of breath, or any other acute concerning symptom. - Follow up Plan Follow up with: Nain Hanna MD [Primary Care Provider] - Jamin Pang MD [Physician] - Disposition: [facility] Prognosis: Fair Rehab Potential: Critical Overall status at discharge: patient is progressing back to baseline Medical - DS: Qual - VTE Deep Vein Thrombosis/Pulmonary Embolism Present on Admission: No
[2017-12-07] MEDS: SUCRALFATE 1 GM TABLET PO SCH (11:07)
[2017-12-07] MEDS: LEVOFLOXACIN 750 MG/150 ML BAG IV SCH ×2 (11:07→16:06)
[2017-12-07] MEDS: MODAFINIL 200 MG TABLET PO SCH (11:08)
[2017-12-07] MEDS ORDERED: LEVOFLOXACIN 750 MG TABLET PO ONE (11:34)
== END 2017-12-07 13:45 | DRG 190 ==
LOC: ED 03:48 → ICU 06:53 → MEDSUR 12-05 15:39
PROVIDERS: ADMIT Internal Medicine; ATTEND Internal Medicine

== ENCOUNTER 2018-03-28 22:56 | Inpatient (IN) ==
[2018-03-29 00:15] LABS: Basophils # (Auto) 0 K/mcL (0.0-0.3); Basophils % (Auto) 0.1 % (0.0-2.0); Eosinophils # (Auto) 0.1 K/mcL (0.0-0.7); Eosinophils % (Auto) 0.9 % (0.0-7.0); Granulocytes % (Auto) 79.2 % (38.0-78.0); Lymphocytes # (Auto) 1.3 K/mcL (1.5-4.8); Lymphocytes % (Auto) 11.7 % (15.5-49.0); Mean Cell Volume 88.9 fL (80.0-100.0); Mean Corpuscular HGB Conc 29.6 g/dL (31.0-36.0); Mean Corpuscular Hemoglobin 26.4 pg (26.0-34.0); Monocytes # (Auto) 0.9 K/mcL (0.1-0.9); Monocytes % (Auto) 8.1 % (1.0-12.0); Platelet Count 288 K/mcL (140-440); RBC 5.31 M/mcL (4.50-5.90); Red Cell Distribution Width 18.1 % (11.5-14.5)
[2018-03-29 00:32] LABS: ALT/SGPT 13 U/l (0-40); Albumin 3.7 gm/dL (3.2-5.2); Albumin/Globulin Ratio 0.9 (1.0-2.3); Alkaline Phosphatase 128 U/L (39-117); Blood Urea Nitrogen 35 mg/dl (8-23)
[2018-03-29] MEDS ORDERED: MAGNESIUM HYDROXIDE 30 ML ORAL.SUSP PO PRN (00:55)
[2018-03-29] MEDS ORDERED: DEXTROSE 50% 50 ML VIAL IV PRN (00:55)
[2018-03-29] MEDS ORDERED: ALBUTEROL SULFATE 2.5 MG/3 ML NEBULIZER NEB PRN (00:55)
[2018-03-29] MEDS ORDERED: DEXTROSE 31 GM ORAL.SUSP PO PRN (00:55)
[2018-03-29] MEDS ORDERED: FLEETS ADULT ENEMA PR PRN (00:55)
[2018-03-29] MEDS ORDERED: POLYETHYLENE GLYCOL 3350 17 GM PACKET PO PRN (00:55)
[2018-03-29] MEDS ORDERED: BISACODYL 10 MG SUPP.RECT PR PRN (00:55)
[2018-03-29] MEDS ORDERED: ACETAMINOPHEN 325 MG TABLET PO PRN (00:55)
[2018-03-29] MEDS ORDERED: cefTRIAXone 1 GM VIAL ONE (01:13)
[2018-03-29] MEDS: cefTRIAXone 1 GM in DEXTROSE 5% IN WATER 50 ML IV SCH ×2 (01:24→15:30)
[2018-03-29] MEDS: IPRATROPIUM/ALBUTEROL 3 ML AMPUL.NEB NEB SCH ×4 (01:27→18:54)
[2018-03-29] MEDS: CIPROFLOXACIN 0.3% OPHTH DROPS BOTTLE OS SCH ×5 (04:00→20:59)
[2018-03-29] MEDS: 0.9 % SODIUM CHLORIDE 10 ML SYRINGE IV SCH ×3 (05:26→22:14)
--- NOTE | 2018-03-29 06:43 | Emergency Department Note ---
General Adult HPI - General Chief complaint: Shortness of Breath/Dyspnea Stated complaint: shortness of breath Time Seen by Provider: 03/28/18 23:04 Source: patient Mode of arrival: EMS Limitations: no limitations - History of Present Illness HPI Narrative: This patient resides over at [facility] assisted and has had a decreased LOC and shortness of breath today. He has chronic COPD and is a DNR. He is barely awake. Does not appear to be in distress. He was admitted last summer on BiPAP. - Related Data Home Medications Medication Instructions Recorded Confirmed Acetaminophen [Tylenol Extra 1,000 mg PO Q6H PRN 10/02/15 03/28/18 Strength] Baclofen [Lioresal] 10 mg PO TID 10/02/15 03/28/18 Bisacodyl [Dulcolax] 10 mg [place] DAILYP PRN 10/02/15 03/28/18 Carvedilol [Coreg] 12.5 mg PO BIDCC 10/02/15 03/28/18 Docusate Sodium [Colace] 100 mg PO BID 10/02/15 03/28/18 Furosemide [Lasix] 40 mg PO BID 10/02/15 03/28/18 Insulin Aspart [Novolog] 1 unit SQ .COMPLEX 10/02/15 03/28/18 Insulin Detemir [Levemir] 28 unit SQ BID 10/02/15 03/28/18 Lisinopril [Zestril] 10 mg PO DAILY 10/02/15 03/28/18 Polyethylene Glycol 3350 [Miralax] 17 gm PO DAILYP PRN 10/02/15 03/28/18 Potassium Chloride 10 meq PO DAILY 10/02/15 03/28/18 metFORMIN HCL [Fortamet] 1,000 mg PO BID 10/02/15 03/28/18 Aspirin [Donna Chewable Aspirin] 81 mg PO DAILY 09/13/17 03/28/18 Budesonide [Pulmicort] 0.5 mg NEB BID 09/13/17 03/28/18 Finasteride [Proscar] 5 mg PO DAILY 09/13/17 03/28/18 Ipratropium/Albuterol [Duoneb] 3 ml NEB Q6HRT 09/13/17 03/28/18 Magnesium Hydroxide [Milk of 30 ml PO DAILYP PRN 09/13/17 03/28/18 Magnesia] Montelukast [Singular] 10 mg PO HS 09/13/17 03/28/18 Na Phos,M-B/Na Phos,Di-Ba [Fleets 1 dose [place] DAILYP PRN 09/13/17 03/29/18 Adult] Tamsulosin [Flomax] 0.4 mg PO HS 09/13/17 03/28/18 acetaZOLAMIDE [Acetazolamide] 250 mg PO BID 09/13/17 03/28/18 Pravastatin Sodium 10 mg PO ONCE 12/04/17 03/28/18 guaiFENesin [Mucinex] 600 mg PO BID 12/04/17 03/28/18 Amitriptyline [Elavil] 25 mg PO HS 03/28/18 03/28/18 DULoxetine HCL [Cymbalta] 40 mg PO ONCE 03/28/18 03/28/18 Loperamide HCl [Loperamide] 2 mg PO Q4HP PRN 03/28/18 03/28/18 Lubiprostone [Amitiza] 24 mcg PO BID 03/28/18 03/28/18 Methylphenidate HCl [Ritalin] 10 mg PO ONCE 03/28/18 03/29/18 Pregabalin [Lyrica] 200 mg PO BID 03/28/18 03/28/18 Sucralfate [Carafate] 2 gm PO BID 03/28/18 03/28/18 traZODone HCL [Trazodone HCl] 50 mg PO ONCE 03/28/18 03/29/18 Previous Rx's Medication Instructions Recorded HYDROcodone/APAP 5/325MG [[place] 1 - 2 tab PO Q4HP PRN #40 tab 12/07/17 5-325Mg] Insulin Aspart [Novolog] 100 unit SQ ACHS #1 ml 12/07/17 Miconazole 25 gm MC BID #60 powder 12/07/17 Allergies Allergy/AdvReac Type Severity Reaction Status Date / Time brimonidine Allergy Unknown Unknown Verified 12/04/17 03:54 gentamicin Allergy Unknown Unknown Verified 12/04/17 03:54 Review of Systems Limitations: ROS unobtainable due to patients medical condition Past Medical History - Past Medical History Medical history: Reports: arthritis, CHF, COPD (acute and chronic respiratory failure with hypercarboxia and hypoxia.), coronary artery disease, DM (Insulin using type II.), glaucoma, hyperlipidemia, hypertension, obesity (Morbid), renal disease (Acute renal failure.), other (BPH. CHRONIC NARCOTICS/CHRONIC PAIN. POLYNEUROPATHY. DONNY-CPAP. CHRONIC CONSTIPATION. ANEMIA. UTI (2016). C02 RETENTION. PNEUMONIA. LUMBAGO. MEMORY DYSFUNCTION. LYMPHEDEMA. INSOMNIA. DRY SYNDROME. VENOUS INSUFFICIENCY.). Denies: CVA, TIA Psychiatric history: Reports: anxiety Surgical history ED: Reports: appendectomy - Social History smoking status: Former smoker Physical Exam Patient is massively obese and lying on his wall with minimal oral verbal interaction with me. When we got him up to do his x-ray he seemed open his eyes and be a little bit more awake. Limitations: no limitations General appearance: in no apparent distress, obtunded Head: atraumatic Eye: Present: normal appearance ENT: normal exam Neck: Present: normal inspection Chest: Present: normal inspection Respiratory: Present: normal lung sounds bilaterally Cardiovascular: Present: regular rate, normal rhythm, normal heart sounds Abdominal: Present: soft. Absent: distention, tenderness Neurological: Present: alert Psychiatric: Present: normal affect Skin: Present: warm, dry, intact Course Vital Signs Temperature 98.3 F 03/28/18 22:58 Pulse Rate 94 H 03/28/18 22:58 Respiratory Rate 18 03/28/18 22:58 Blood Pressure 129/69 03/28/18 22:58 Pulse Oximetry (%) 100 03/28/18 22:58 Temperature 97.2 F 03/29/18 04:01 Pulse Rate 80 03/29/18 04:01 Respiratory Rate 14 03/29/18 04:01 Blood Pressure 119/67 03/29/18 04:01 Pulse Oximetry (%) 97 03/29/18 04:01 Medical Decision Making - [facility] Narrative Medical decision making narrative: Patient's blood gas showed a pH of 7.1 and a PCO2 of 96 and a normal PO2. I discussed the case with Dr. Hernandez and the patient will be admitted for to the hospital on BiPAP. He is a DNR. - Lab Data Lab results reviewed: Yes I reviewed the patient's lab results. Result diagrams: 03/28/18 23:30 03/28/18 23:30 Lab Results 03/28/18 03/28/18 03/28/18 Range/Units 23:30 23:30 23:30 WBC 11.2 H (4.5-11.0) K/mcL RBC 5.31 (4.50-5.90) M/mcL Hgb 14.0 (13.5-16.5) g/dL Hct 47.2 (41.0-55.0) % MCV 88.9 (80.0-100.0) fL MCH 26.4 (26.0-34.0) pg MCHC 29.6 L (31.0-36.0) g/dL RDW 18.1 H (11.5-14.5) % Plt Count 288 (140-440) K/mcL MPV 8.6 (7.4-10.4) fL Gran % 79.2 H (38.0-78.0) % Lymph % (Auto) 11.7 L (15.5-49.0) % Garfield % (Auto) 8.1 (1.0-12.0) % Eos % (Auto) 0.9 (0.0-7.0) % Baso % (Auto) 0.1 (0.0-2.0) % Gran # 8.8 H (1.8-8.0) K/mcL Lymph # (Auto) 1.3 L (1.5-4.8) K/mcL Garfield # (Auto) 0.9 (0.1-0.9) K/mcL Eos # (Auto) 0.1 (0.0-0.7) K/mcL Baso # (Auto) 0 (0.0-0.3) K/mcL VBG Lactic Acid 0.6 (0.5-2.0) mmol/L Sodium 136 (133-145) mmol/L Potassium 5.3 H (3.3-5.1) mmol/L Chloride 95 L (96-108) mmol/L Carbon Dioxide 33 H (22-30) mmol/L Anion Gap 8.0 (8-16) BUN 35 H (8-23) mg/dl Creatinine 1.1 (0.7-1.2) mg/dl GFR Calculation 71 Glucose 324 H (70-105) mg/dL Calcium 9.6 (8.6-10.4) mg/dl Total Bilirubin 0.2 (0.0-1.0) mg/dL AST 13 (0-37) U/l ALT 13 (0-40) U/l Alkaline Phosphatase 128 H (39-117) U/L Total Protein 7.8 (5.9-8.4) gm/dL Albumin 3.7 (3.2-5.2) gm/dL Globulin 4.1 H (2.2-3.7) gm/dL Albumin/Globulin Ratio 0.9 L (1.0-2.3) Disposition Pt seen by [employer]FT[employer]ERSON/PA only: No Clinical Impression: Acute exacerbation of chronic obstructive airways disease Disposition: Xfer As Inpt ([facility]) Condition: Undetermined
--- NOTE | 2018-03-29 06:45 | Internal Med History&Physical ---
Medical - H&P: HPI Patient information: Note initiated : 03/29/18 at 6:43 am Service Date, if different from initiated Date: [] Patient: Dangelo Alvares 62 y/o M admitted on 03/29/18 for shortness of breath. Chief Complaint: decreased LOC, dyspnea History of present illness: The patient is a 62-year-old male with history of hypertension, sleep apnea, morbid obesity, chronic pain, chronic hypercapnic respiratory failure presents with decreased level of consciousness. History is obtained in reviewing records from transfer, speaking with Dr. borrego and ED staff. The patient is able to provide a small amount of additional history. Apparently the patient had decreased level of consciousness since early afternoon. He presents to the ED some more after 11 PM. Patient arouses, states that he was doing okay today though he did have a fall when he was trying to transfer (uses a wheelchair but can transfer independentlycomplaining of clicking in his right hip). He confirms that he does use CPAP at night for DONNY. He states hes had a cough when queried, producing white in self sputum which seems to be unchanged. When directly asked if he was using more pain meds today he seemed to have knowledge yes, though that was vague. When asked if he is having any abdominal pain he says yes and points to the right flank area. He denies any chest pain. He does feel short of breath. He doesn t think hes been having any fever or feeling feverish. When directly queried he does have complaining of dysuria, there is record of a UA done on 03/21 which is growing group B strep as well as a gram-negative bacillus. He has not been on antibiotics. In the emergency department, initial evaluation reveals ABG with pH 7.16, PCO2 96, PO2 128. Patients being hospitalized the PCU for treatment of acute on chronic hypercapnic respiratory failure. ROS unobtainable: due to mental status Medical - H&P: PMH Medical history: Hypertension Type 2 diabetes mellitus Hyperlipidemia Obstructive sleep apnea on CPAP COPD BPH History of urinary tract infection Depression with anxiety Morbid obesity, BMI 53 Lymphedema Gastroesophageal reflux disease Chronic pain Lumbar degenerative disc disease with radiculopathy Congestive heart failure, unknown ejection fraction Insomnia History of glaucoma Surgical history: Unknown, patient unable to provide further history due to mental status. Pertinent family history: Unknown, patient unable to give further history Social history: Lives in local care facility, apparently does not smoke or drink alcohol. Medical - H&P: Meds Home Medications Medication Instructions Recorded Confirmed Type Acetaminophen [Tylenol Extra 1,000 mg PO Q6H PRN 10/02/15 03/28/18 History Strength] Baclofen [Lioresal] 10 mg PO TID 10/02/15 03/28/18 History Bisacodyl [Dulcolax] 10 mg [place] DAILYP PRN 10/02/15 03/28/18 History Carvedilol [Coreg] 12.5 mg PO BIDCC 10/02/15 03/28/18 History Docusate Sodium [Colace] 100 mg PO BID 10/02/15 03/28/18 History Furosemide [Lasix] 40 mg PO BID 10/02/15 03/28/18 History Insulin Aspart [Novolog] 1 unit SQ .COMPLEX 10/02/15 03/28/18 History Insulin Detemir [Levemir] 28 unit SQ BID 10/02/15 03/28/18 History Lisinopril [Zestril] 10 mg PO DAILY 10/02/15 03/28/18 History Polyethylene Glycol 3350 [Miralax] 17 gm PO DAILYP PRN 10/02/15 03/28/18 History Potassium Chloride 10 meq PO DAILY 10/02/15 03/28/18 History metFORMIN HCL [Fortamet] 1,000 mg PO BID 10/02/15 03/28/18 History Aspirin [Donna Chewable Aspirin] 81 mg PO DAILY 09/13/17 03/28/18 History Budesonide [Pulmicort] 0.5 mg NEB BID 09/13/17 03/28/18 History Finasteride [Proscar] 5 mg PO DAILY 09/13/17 03/28/18 History Ipratropium/Albuterol [Duoneb] 3 ml NEB Q6HRT 09/13/17 03/28/18 History Magnesium Hydroxide [Milk of 30 ml PO DAILYP PRN 09/13/17 03/28/18 History Magnesia] Montelukast [Singular] 10 mg PO HS 09/13/17 03/28/18 History Na Phos,M-B/Na Phos,Di-Ba [Fleets 1 dose [place] DAILYP PRN 09/13/17 03/29/18 History Adult] Tamsulosin [Flomax] 0.4 mg PO HS 09/13/17 03/28/18 History acetaZOLAMIDE [Acetazolamide] 250 mg PO BID 09/13/17 03/28/18 History Pravastatin Sodium 10 mg PO ONCE 12/04/17 03/28/18 History guaiFENesin [Mucinex] 600 mg PO BID 12/04/17 03/28/18 History HYDROcodone/APAP 5/325MG [[place] 1 - 2 tab PO Q4HP PRN #40 tab 12/07/17 03/28/18 Rx 5-325Mg] Insulin Aspart [Novolog] 100 unit SQ ACHS #1 ml 12/07/17 03/28/18 Rx Miconazole 25 gm MC BID #60 powder 12/07/17 03/28/18 Rx Amitriptyline [Elavil] 25 mg PO HS 03/28/18 03/28/18 History DULoxetine HCL [Cymbalta] 40 mg PO ONCE 03/28/18 03/28/18 History Loperamide HCl [Loperamide] 2 mg PO Q4HP PRN 03/28/18 03/28/18 History Lubiprostone [Amitiza] 24 mcg PO BID 03/28/18 03/28/18 History Methylphenidate HCl [Ritalin] 10 mg PO ONCE 03/28/18 03/29/18 History Pregabalin [Lyrica] 200 mg PO BID 03/28/18 03/28/18 History Sucralfate [Carafate] 2 gm PO BID 03/28/18 03/28/18 History traZODone HCL [Trazodone HCl] 50 mg PO ONCE 03/28/18 03/29/18 History Allergies Allergy/AdvReac Type Severity Reaction Status Date / Time brimonidine Allergy Unknown Unknown Verified 12/04/17 03:54 gentamicin Allergy Unknown Unknown Verified 12/04/17 03:54 Medical - H&P: Exam - Constitutional Vitals: Temp Pulse Resp BP Pulse Ox 97.2 F 80 14 119/67 97 03/29/18 04:01 03/29/18 04:01 03/29/18 04:01 03/29/18 04:01 03/29/18 04:01 Exam: GENERAL: Morbidly obese, somnolent, arouses, answers in 2-3 word responses. Chronically ill-appearing HEENT: Atraumatic. PERRL at 2 mm, crusty left conjunctival discharge, right conjunctiva is clear; no scleral icterus. Hearing grossly intact. Oropharynx with moist mucous, remainder exam limited due to BiPAP mask. Tongue is midline. NECK: Obese, supple without meningismus, no thyromegaly appreciated though exam very difficult RESPIRATORY: Breath sounds severely diminished throughout all lung yee, no obvious wheezing. Respiratory effort is labored and assisted by BiPAP. CARDIOVASCULAR: Regular rate and rhythm, distant, no murmur gallop or rub appreciated. 1+ peripheral edema. Carotid pulses 2+, neck veins not visible GI: Abdomen obese soft, very mild tenderness in the right mid flank, no guarding or rebound. No right upper quadrant tenderness. Hepatosplenomegaly cannot be determined due to body habitus. MUSCULOSKELETAL: No joint erythema or swelling, normal range of motion in all extremities. SKIN: Crusty/plaque-like lesions on the scalp, on the forearms. Chronic venous stasis changes bilateral lower extremities. NEUROLOGIC: Cranial nerves II through XII grossly intact as can best be tested. Muscle mass appears normal for age. Cannot formally test drain due to cooperation, though patient is moving all 4 extremities equally. PSYCHIATRIC: Somnolent, cannot assess mood or affect or insight. Medical - H&P: Reslt - Labs CBC & Chem 7: 03/28/18 23:30 03/28/18 23:30 Labs: Short CBC 03/28/18 Range/Units 23:30 WBC 11.2 H (4.5-11.0) K/mcL Hgb 14.0 (13.5-16.5) g/dL Hct 47.2 (41.0-55.0) % Plt Count 288 (140-440) K/mcL BMP 03/28/18 23:30 Sodium 136 Potassium 5.3 H Chloride 95 L Carbon Dioxide 33 H BUN 35 H Creatinine 1.1 Glucose 324 H Calcium 9.6 Liver Function 03/28/18 Range/Units 23:30 Total Bilirubin 0.2 (0.0-1.0) mg/dL AST 13 (0-37) U/l ALT 13 (0-40) U/l Alkaline Phosphatase 128 H (39-117) U/L Albumin 3.7 (3.2-5.2) gm/dL - EKG Data EKG comments: Sinus rhythm, rate of 89. Low voltages. Less [address] elevation in lead 3 and aVF, consistent with repolarization. - Imaging and Cardiology Chest x-ray Status: image reviewed by me Additional comments: Poor penetration, cardiomegaly, poor inspiration, left heart border not well seen. Appears similar to prior Medical - H&P: A/P (1) Acute and chronic respiratory failure with hypercapnia Current visit: Yes Status: Acute - Narrative A/P Narrative: 62-year-old male with chronic hypercapnic respiratory failure, sleep apnea, hypertension presents with decreased level of consciousness, found to have acute on chronic hypercapnia. Acute on chronic hypercapnic respiratory failure. Unclear etiology. Radiograph is clear. No clear evidence of COPD exacerbation, though breath sounds are very distant and diminished. Could be secondary to medication effect , patient is on baclofen, Lyrica and [place]. This was felt to be the etiology back in August. Plan: Admit to PCU BiPAP therapy Follow ABG Goal SaO2 8892 percent Urinary tract infection/acute cystitis. Urinalysis from 03/21 (results printed from [facility]) were abnormal, culture shows group B strep as well as 40-50,000 colonies of GNB. Plan: Ceftriaxone Type 2 diabetes on Levemir, metformin and sliding scale insulin. Plan: Hold metformin while acutely ill, continue Lantus (in lieu of Levemir) and sliding scale insulin. Accu-Cheks, controlled carbohydrate diet. Hypertension. Plan: Continue home regimen. History of congestive heart failure, unknown ejection fraction. Does not appear to be significantly volume overloaded at this time. Plan: Continue diuretics. Morbid obesity. Will require bariatric bed, anticipated will be here 2-3 days correcting acidosis and hypercapnia. CODE STATUS: Patient is DNR with additional interventions. He confirms he would not want chest compressions or intubation. Prophylaxis: Lovenox and SCDs. Medical - H&P: Qual - VTE Deep Vein Thrombosis/Pulmonary Embolism Present on Admission: No
[2018-03-29 06:46] LABS: Mean Cell Volume 88.3 fL (80.0-100.0); Mean Corpuscular HGB Conc 30.3 g/dL (31.0-36.0); Mean Corpuscular Hemoglobin 26.8 pg (26.0-34.0); Platelet Count 256 K/mcL (140-440); Red Cell Distribution Width 17.7 % (11.5-14.5)
[2018-03-29] MEDS: BUDESONIDE 0.5 MG/2 ML AMPUL.NEB NEB SCH ×3 (07:22→19:09)
[2018-03-29] MEDS ORDERED: PANTOPRAZOLE 40 MG TABLET PO SCH (07:30)
[2018-03-29 07:52] LABS: Blood Urea Nitrogen 37 mg/dl (8-23)
[2018-03-29] MEDS: PANTOPRAZOLE 40 MG VIAL IV SCH (07:52)
--- NOTE | 2018-03-29 07:52 | XRay Report ---
HISTORY: Shortness of breath FINDINGS: There are moderately severe generalized alveolar opacities throughout both lungs with the greatest consolidation located laterally in the left lower thorax. These have become worse since 12/04/17. The heart is obscured. There may be small left-sided pleural effusion. The overall lung volumes are within normal limits. IMPRESSION: Severe infiltrates throughout both lungs. This could be due to pulmonary edema, pneumonia, ARDS or a combination of the above. Interpreted and Authenticated by: Alin Rothman 03/29/18
[2018-03-29 08:16] LABS: Anisocytosis 1+ (NONE SEEN); Band Neutrophils % 1 % (0-10); Eosinophils % (Manual) 1 % (0-7); Lymphocytes % 15 % (15-49); Monocytes % (Manual) 4 % (1-12); Platelet Estimate NORMAL (NORMAL); RBC Morphology ABNORM (NORMAL); Segmented Neutrophils % 79 % (38-78)
[2018-03-29] MEDS: INSULIN LISPRO 1 UNIT/0.01 ML UNIT SQ SCH ×4 (08:20→20:56)
[2018-03-29] MEDS: POTASSIUM CHLORIDE 10 MEQ TABLET PO SCH (08:23)
[2018-03-29] MEDS: CARVEDILOL 12.5 MG TABLET PO SCH ×3 (08:23→16:56)
[2018-03-29] MEDS: FUROSEMIDE 40 MG/4 ML VIAL IV SCH ×2 (08:24→16:34)
[2018-03-29] MEDS: FINASTERIDE 5 MG TABLET PO SCH (08:57)
[2018-03-29] MEDS: DOCUSATE SODIUM 100 MG CAPSULE PO SCH ×2 (08:58→20:55)
[2018-03-29] MEDS: SUCRALFATE 1 GM TABLET PO SCH ×2 (08:58→20:54)
[2018-03-29] MEDS: acetaZOLAMIDE 250 MG TABLET PO SCH ×2 (08:58→20:59)
[2018-03-29] MEDS: PREGABALIN 100 MG CAPSULE PO SCH ×2 (08:58→20:53)
[2018-03-29] MEDS: guaiFENesin 600 MG TAB.SR.12H PO SCH ×2 (08:58→20:54)
[2018-03-29] MEDS: ASPIRIN 81 MG TAB.CHEW PO SCH (08:59)
[2018-03-29] MEDS: BACLOFEN 10 MG TABLET PO SCH ×2 (08:59→20:53)
[2018-03-29] MEDS: ENOXAPARIN 40 MG/0.4 ML SYRINGE SQ SCH (08:59)
[2018-03-29] MEDS ORDERED: FUROSEMIDE 40 MG TABLET PO SCH (09:00)
[2018-03-29] MEDS: INSULIN GLARGINE, HUMAN 1 UNIT/0.01 ML SQ SCH ×2 (09:00→20:56)
[2018-03-29] MEDS: Lubiprostone [Amitiza] 24 mcg Cap PO SCH ×2 (09:04→21:15)
[2018-03-29] MEDS: LISINOPRIL 20 MG TABLET PO SCH (09:17)
[2018-03-29] MEDS: DULoxetine 20 MG CAPSULE PO SCH (09:47)
[2018-03-29] MEDS: HYDROcodone/APAP 5/325MG TABLET PO PRN ×2 (11:03→20:53)
[2018-03-29] MEDS: TRIAMCINOLONE CREAM 0.1% 15G 1 DOSE TUBE TOPICAL SCH ×2 (13:42→20:56)
[2018-03-29] MEDS: MONTELUKAST 10 MG TABLET PO SCH (20:54)
[2018-03-29] MEDS: AMITRIPTYLINE 25 MG TABLET PO SCH (20:54)
[2018-03-29] MEDS: SIMVASTATIN 10 MG TABLET PO SCH (20:54)
[2018-03-29] MEDS: TAMSULOSIN 0.4 MG CAPSULE PO SCH (20:55)
[2018-03-30] MEDS: IPRATROPIUM/ALBUTEROL 3 ML AMPUL.NEB NEB SCH ×6 (01:39→19:35)
[2018-03-30] MEDS: CIPROFLOXACIN 0.3% OPHTH DROPS BOTTLE OS SCH ×6 (01:39→20:55)
[2018-03-30] MEDS: 0.9 % SODIUM CHLORIDE 10 ML SYRINGE IV SCH ×3 (04:17→20:53)
[2018-03-30 06:06] LABS: Basophils # (Auto) 0 K/mcL (0.0-0.3); Basophils % (Auto) 0.3 % (0.0-2.0); Eosinophils # (Auto) 0.2 K/mcL (0.0-0.7); Eosinophils % (Auto) 2.5 % (0.0-7.0); Granulocytes % (Auto) 66.7 % (38.0-78.0); Lymphocytes # (Auto) 1.9 K/mcL (1.5-4.8); Lymphocytes % (Auto) 21.2 % (15.5-49.0); Mean Cell Volume 85.7 fL (80.0-100.0); Mean Corpuscular HGB Conc 31.2 g/dL (31.0-36.0); Mean Corpuscular Hemoglobin 26.8 pg (26.0-34.0); Monocytes # (Auto) 0.8 K/mcL (0.1-0.9); Monocytes % (Auto) 9.3 % (1.0-12.0); Platelet Count 254 K/mcL (140-440); RBC 4.75 M/mcL (4.50-5.90); Red Cell Distribution Width 16.9 % (11.5-14.5)
[2018-03-30 06:26] LABS: ALT/SGPT 10 U/l (0-40); Albumin 2.9 gm/dL (3.2-5.2); Albumin/Globulin Ratio 0.9 (1.0-2.3); Alkaline Phosphatase 100 U/L (39-117); Bilirubin,Direct < 0.2 mg/dL (0.0-0.3); Blood Urea Nitrogen 32 mg/dl (8-23); Gamma Glutamyl Transpeptidase 28 U/L (8-61); Uric Acid 9.3 mg/dL (2.5-8.0)
[2018-03-30] MEDS: BUDESONIDE 0.5 MG/2 ML AMPUL.NEB NEB SCH ×2 (06:59→19:13)
[2018-03-30] MEDS: FUROSEMIDE 40 MG/4 ML VIAL IV SCH ×2 (07:35→15:27)
[2018-03-30] MEDS: CARVEDILOL 12.5 MG TABLET PO SCH ×2 (07:35→17:07)
[2018-03-30] MEDS: POTASSIUM CHLORIDE 10 MEQ TABLET PO SCH (07:35)
[2018-03-30] MEDS: PANTOPRAZOLE 40 MG VIAL IV SCH (07:35)
[2018-03-30] MEDS ORDERED: cefTRIAXone 1 GM in DEXTROSE 5% IN WATER 50 ML IV SCH (09:00)
[2018-03-30] MEDS: FINASTERIDE 5 MG TABLET PO SCH (09:23)
[2018-03-30] MEDS: DOCUSATE SODIUM 100 MG CAPSULE PO SCH ×2 (09:23→20:53)
[2018-03-30] MEDS: guaiFENesin 600 MG TAB.SR.12H PO SCH ×2 (09:23→20:53)
[2018-03-30] MEDS: PREGABALIN 100 MG CAPSULE PO SCH ×2 (09:24→20:53)
[2018-03-30] MEDS: SUCRALFATE 1 GM TABLET PO SCH ×2 (09:24→20:57)
[2018-03-30] MEDS: BACLOFEN 10 MG TABLET PO SCH ×2 (09:24→20:54)
[2018-03-30] MEDS: LISINOPRIL 20 MG TABLET PO SCH (09:25)
[2018-03-30] MEDS: ASPIRIN 81 MG TAB.CHEW PO SCH (09:25)
[2018-03-30] MEDS: ENOXAPARIN 40 MG/0.4 ML SYRINGE SQ SCH (09:26)
[2018-03-30] MEDS: INSULIN GLARGINE, HUMAN 1 UNIT/0.01 ML SQ SCH ×2 (09:26→20:52)
[2018-03-30] MEDS: INSULIN LISPRO 1 UNIT/0.01 ML UNIT SQ SCH ×4 (09:27→20:53)
[2018-03-30] MEDS: acetaZOLAMIDE 250 MG TABLET PO SCH ×2 (09:27→20:56)
[2018-03-30] MEDS: DULoxetine 20 MG CAPSULE PO SCH (09:27)
[2018-03-30] MEDS: TRIAMCINOLONE CREAM 0.1% 15G 1 DOSE TUBE TOPICAL SCH ×2 (09:33→20:54)
[2018-03-30] MEDS: NEUTRA PHOS 1 PACKET PO SCH ×2 (09:35→20:51)
[2018-03-30] MEDS: Lubiprostone [Amitiza] 24 mcg Cap PO SCH ×2 (09:48→20:57)
--- NOTE | 2018-03-30 10:41 | Internal Med Progress Note ---
Medical - PN: Subj Patient information: Note initiated : 03/30/18 at 10:38 am Service Date, if different from initiated Date: [] Patient: Dangelo Alvares 62 y/o M admitted on 03/29/18 for shortness of breath. Chief Complaint: [] Interval history: The patient is a 62-year-old male with history of hypertension, sleep apnea, morbid obesity, chronic pain, chronic hypercapnic respiratory failure presents with decreased level of consciousness. History is obtained in reviewing records from transfer, speaking with Dr. borrego and ED staff. The patient is able to provide a small amount of additional history. Apparently the patient had decreased level of consciousness since early afternoon. He presents to the ED some more after 11 PM. Patient arouses, states that he was doing okay today though he did have a fall when he was trying to transfer (uses a wheelchair but can transfer independentlycomplaining of clicking in his right hip). He confirms that he does use CPAP at night for DONNY. He states hes had a cough when queried, producing white in self sputum which seems to be unchanged. When directly asked if he was using more pain meds today he seemed to have knowledge yes, though that was vague. When asked if he is having any abdominal pain he says yes and points to the right flank area. He denies any chest pain. He does feel short of breath. He doesn t think hes been having any fever or feeling feverish. When directly queried he does have complaining of dysuria, there is record of a UA done on 03/21 which is growing group B strep as well as a gram-negative bacillus. He has not been on antibiotics. In the emergency department, initial evaluation reveals ABG with pH 7.16, PCO2 96, PO2 128. Patients being hospitalized the PCU for treatment of acute on chronic hypercapnic respiratory failure. 03/30-patient doing well on BiPAP. Improved shortness of breath, off BiPAP this morning. Able to talk in full sentences. No overnight fever chills or concerns per staff. Persistent elevated sugars around 300. Increase Lantus to 35 twice daily, start phosphorus replacement. ABG improved 7.29/72 from 7.19/ 96. Encephalopathy resolved. Continue as needed BiPAP. Patient has not been able to use outpatient CPAP due to inadequate fit. - Constitutional Vitals: Vital Signs Temp Pulse Resp BP Pulse Ox 97.2 F 75 14 127/85 88 L 03/30/18 04:01 03/30/18 07:14 03/30/18 07:14 03/30/18 06:01 03/30/18 06:01 Period Temp Pulse Resp BP Sys/Fink Pulse Ox Last 24 Hr 97.2 F-99.1 F 53-101 9-28 95-175/51-155 81-97 Intake and Output 03/29/18 03/30/18 03/30/18 21:59 05:59 13:59 Intake Total 2210 / 2210 Output Total 1944 1038 / 1038 Balance 265 / 265 -1038 / -1038 Weight 379 lb 6.4 oz Intake & Output: Intake & Output 03/29/18 03/30/18 03/30/18 21:59 05:59 13:59 Intake Total 2210 / 2210 Output Total 1944 1038 / 1038 Balance 265 / 265 -1038 / -1038 Weight 379 lb 6.4 oz Intake: IV 50 / 50 Rocephin 1 gm In Dextrose 5% in 50 / 50 Water 50 ml @ 100 mls/hr IV Q24H [facility] Rx#:[id number] Oral 2160 / 2160 Output: Urine Catheter Amount 1944 1038 / 1038 Other: Urine Appearance Clear Sediment Uretheral (Short) Clear Clear Urine Color Bright Yellow Dark Yellow Uretheral (Short) Bright Yellow Bright Yellow Urine Odor Normal Stool Size Small Copious Stool Color Brown Brown Stool Consistency Formed Soft Formed # Bowel Movements 1 # of times incontinent of 0 Bowels General appearance: morbidly obese, no acute distress Exam: Alert oriented No labored breathing Morbidly obese Short catheter draining clear urine Medical - PN: Obj Da - Labs CBC & Chem 7: 03/30/18 04:10 03/30/18 04:10 Labs: Abnormal Lab Results 03/30/18 03/30/18 03/29/18 04:10 04:10 08:33 WBC Hgb 12.7 L Hct 40.7 L MCHC RDW 16.9 H Gran % Lymph % (Auto) Gran # Lymph # (Auto) Seg Neutrophils % RBC Morphology Anisocytosis Potassium Chloride Carbon Dioxide BUN 32 H Glucose 307 H Uric Acid 9.3 H Phosphorus 2.1 L Alkaline Phosphatase NT-Pro-B Natriuret Pep 381.4 H Albumin 2.9 L Globulin Albumin/Globulin Ratio 0.9 L Triglycerides 170 H 03/29/18 03/29/18 03/28/18 04:00 04:00 23:30 WBC Hgb 12.6 L Hct MCHC 30.3 L RDW 17.7 H Gran % Lymph % (Auto) Gran # Lymph # (Auto) Seg Neutrophils % 79 H RBC Morphology Abnorm A Anisocytosis 1+ A Potassium 5.3 H Chloride 95 L Carbon Dioxide 31 H 33 H BUN 37 H 35 H Glucose 281 H 324 H Uric Acid Phosphorus Alkaline Phosphatase 128 H NT-Pro-B Natriuret Pep Albumin Globulin 4.1 H Albumin/Globulin Ratio 0.9 L Triglycerides 03/28/18 23:30 WBC 11.2 H Hgb Hct MCHC 29.6 L RDW 18.1 H Gran % 79.2 H Lymph % (Auto) 11.7 L Gran # 8.8 H Lymph # (Auto) 1.3 L Seg Neutrophils % RBC Morphology Anisocytosis Potassium Chloride Carbon Dioxide BUN Glucose Uric Acid Phosphorus Alkaline Phosphatase NT-Pro-B Natriuret Pep Albumin Globulin Albumin/Globulin Ratio Triglycerides Meds: Medications Acetaminophen (Tylenol) 650 mg PO Q4-6HP PRN PRN Reason: PAIN/FEVER > 101 Hydrocodone Bitart/Acetaminophen ([place] 5/325mg) 1 tab PO Q4HP PRN PRN Reason: Pain Last Admin: 03/29/18 20:53 Dose: 1 tab Acetazolamide (Acetazolamide) 250 mg PO BID [facility] Last Admin: 03/30/18 09:27 Dose: 250 mg Albuterol Sulfate (Ventolin) 2.5 mg NEB Q2HP PRN PRN Reason: Wheezing Albuterol/Ipratropium (Duoneb) 3 ml NEB Q6HRT [facility] Last Admin: 03/30/18 06:59 Dose: 3 ml Amitriptyline HCl (Elavil) 25 mg PO HS [facility] Last Admin: 03/29/18 20:54 Dose: 25 mg Aspirin (Aspirin) 81 mg PO DAILY [facility] Last Admin: 03/30/18 09:25 Dose: 81 mg Baclofen (Lioresal) 10 mg PO BID [facility] Last Admin: 03/30/18 09:24 Dose: 10 mg Bisacodyl (Dulcolax) 10 mg GA DAILYP PRN PRN Reason: Constipation Budesonide (Pulmicort) 0.5 mg NEB BID [facility] Last Admin: 03/30/18 06:59 Dose: 0.5 mg Carvedilol (Coreg) 12.5 mg PO BIDCC [facility] Last Admin: 03/30/18 07:35 Dose: 12.5 mg Ceftriaxone Sodium (Rocephin) 1 gm IV DAILY [facility] Ciprofloxacin (Ciloxan 0.3% Ophth Drops) 2 gtt OS Q4 [facility] Last Admin: 03/30/18 09:33 Dose: 2 gtt Dextrose (Dextrose 50%) 0 ml IV UD PRN PRN Reason: Hypoglycemia Diagnostic Test (Pha) (Accu-Chek) 1 each FS ACHS [facility] Last Admin: 03/30/18 09:28 Dose: 1 each Docusate Sodium (Colace) 100 mg PO BID [facility] Last Admin: 03/30/18 09:23 Dose: 100 mg Duloxetine HCl (Cymbalta) 40 mg PO DAILY [facility] Last Admin: 03/30/18 09:27 Dose: 40 mg Enoxaparin Sodium (Lovenox) 40 mg SQ DAILY [facility] Last Admin: 03/30/18 09:26 Dose: 40 mg Finasteride (Proscar) 5 mg PO DAILY [facility] Last Admin: 03/30/18 09:23 Dose: 5 mg Furosemide (Lasix) 40 mg IV BIDD [facility] Last Admin: 03/30/18 07:35 Dose: 40 mg Glucose (Insta-Glucose) 15 gm PO PRN PRN PRN Reason: Hypoglycemia Guaifenesin (Mucinex) 600 mg PO BID [facility] Last Admin: 03/30/18 09:23 Dose: 600 mg Insulin Glargine (Lantus) 35 unit SQ BID [facility] Insulin Human Lispro (Humalog) 0 unit SQ [facility]; Protocol Last Admin: 03/30/18 09:27 Dose: 8 units Lisinopril (Zestril) 10 mg PO DAILY [facility] Last Admin: 03/30/18 09:25 Dose: 10 mg Magnesium Hydroxide (Milk Of Magnesia) 30 ml PO DAILYP PRN PRN Reason: Constipation Montelukast Sodium (Singular) 10 mg PO HS [facility] Last Admin: 03/29/18 20:54 Dose: 10 mg Pantoprazole Sodium (Protonix) 40 mg IV QAMAC [facility] Last Admin: 03/30/18 07:35 Dose: 40 mg Lubiprostone [ (Amitiza] 24 Mcg Cap) 1 dose PO BID [facility] Last Admin: 03/30/18 09:48 Dose: Not Given Polyethylene Glycol (Miralax) 17 gm PO DAILYP PRN PRN Reason: Constipation Potassium Chloride (Kdur) 10 meq PO QAMCC [facility] Last Admin: 03/30/18 07:35 Dose: 10 meq Potassium/Phosphorus/Sodium (Neutra Phos) 2 packet PO BID [facility] Stop: 04/01/18 21:01 Pregabalin (Lyrica) 200 mg PO BID [facility] Last Admin: 03/30/18 09:24 Dose: 200 mg Simvastatin (Zocor) 5 mg PO [facility] Last Admin: 03/29/18 20:54 Dose: 5 mg Sodium Biphosphate/Sodium Phosphate (Fleets Adult) 1 dose GA DAILYP PRN PRN Reason: Constipation Sodium Chloride (Saline Flush) 10 ml IV Q8 [facility] Last Admin: 03/30/18 04:17 Dose: 10 ml Sucralfate (Carafate) 2 gm PO BID [facility] Last Admin: 03/30/18 09:24 Dose: 2 gm Tamsulosin HCl (Flomax) 0.4 mg PO [facility] Last Admin: 03/29/18 20:55 Dose: 0.4 mg Triamcinolone Acetonide (Kenalog Cream 0.1%) 1 dose TOPICAL BID [facility] Last Admin: 03/30/18 09:33 Dose: 1 dose Medical - PN: A/P - Time Spent With Patient Total time spent is greater than 50% in coordination of care (as documented) at patient's floor/unit and/or counseling patient: 25 - 35 minutes (1) Acute hypercapnic respiratory failure due to obstructive sleep apnea Status: Acute Assessment and plan: Assessment -62-year-old male with chronic hypercapnic respiratory failure, sleep apnea, hypertension presents with decreased level of consciousness, found to have acute on chronic hypercapnia. * Acute on chronic hypercapnic respiratory failure. Clinically improving on noninvasive ventilation. Multifactorial including patient's unable to use his outpatient CPAP/multiple medications. Improved ABGs. Continue ICU care * Complicated UTI-continue Rocephin. Group B streptococcus and culture * Type II DM-poorly controlled with blood sugars around 300. Uptitrate Lantus to 35 twice daily, continue SSI, start sitagliptin * Morbid obesity with DONNY * History of CHF-continue home dose diuretics * History of hypertension continue existing medications * DNR * Prophylaxis: Lovenox and SCDs. Plan * Continue ICU care/noninvasive ventilation * Antibiotic coverage * Pre-existing medical condition management as above * Aggressive PT OT * discontinue Short's catheter * RT to assess home CPAP Current Visit: Yes Medical - PN: Qual - VTE Deep Vein Thrombosis/Pulmonary Embolism Present on Admission: No
[2018-03-30] MEDS: sitaGLIPtin 100 MG TABLET PO SCH (11:56)
[2018-03-30] MEDS: metFORMIN 500 MG TABLET PO SCH (17:07)
[2018-03-30] MEDS ORDERED: hydrALAZINE 20 MG/ML VIAL IV PRN (17:34)
[2018-03-30] MEDS ORDERED: hydrALAZINE 20 MG/ML VIAL IV SCH (18:00)
[2018-03-30] MEDS: TAMSULOSIN 0.4 MG CAPSULE PO SCH (20:53)
[2018-03-30] MEDS: AMITRIPTYLINE 25 MG TABLET PO SCH (20:53)
[2018-03-30] MEDS: MONTELUKAST 10 MG TABLET PO SCH (20:54)
[2018-03-30] MEDS: SIMVASTATIN 10 MG TABLET PO SCH (20:54)
[2018-03-30] MEDS ORDERED: traZODone HCL 50 MG TABLET PO PRN (21:00)
[2018-03-31] MEDS: IPRATROPIUM/ALBUTEROL 3 ML AMPUL.NEB NEB SCH ×5 (01:21→18:25)
[2018-03-31] MEDS: CIPROFLOXACIN 0.3% OPHTH DROPS BOTTLE OS SCH ×7 (01:23→22:57)
[2018-03-31] MEDS: 0.9 % SODIUM CHLORIDE 10 ML SYRINGE IV SCH ×3 (04:51→23:18)
[2018-03-31 05:47] LABS: Basophils # (Auto) 0 K/mcL (0.0-0.3); Basophils % (Auto) 0.3 % (0.0-2.0); Eosinophils # (Auto) 0.3 K/mcL (0.0-0.7); Eosinophils % (Auto) 2.5 % (0.0-7.0); Granulocytes % (Auto) 67.1 % (38.0-78.0); Lymphocytes # (Auto) 2.1 K/mcL (1.5-4.8); Lymphocytes % (Auto) 21.5 % (15.5-49.0); Mean Cell Volume 86.9 fL (80.0-100.0); Mean Corpuscular HGB Conc 30.8 g/dL (31.0-36.0); Mean Corpuscular Hemoglobin 26.8 pg (26.0-34.0); Monocytes # (Auto) 0.8 K/mcL (0.1-0.9); Monocytes % (Auto) 8.6 % (1.0-12.0); Platelet Count 263 K/mcL (140-440); RBC 4.99 M/mcL (4.50-5.90); Red Cell Distribution Width 18.3 % (11.5-14.5)
[2018-03-31 06:11] LABS: ALT/SGPT 12 U/l (0-40); Albumin 2.9 gm/dL (3.2-5.2); Albumin/Globulin Ratio 0.8 (1.0-2.3); Alkaline Phosphatase 99 U/L (39-117); Bilirubin,Direct < 0.2 mg/dL (0.0-0.3); Blood Urea Nitrogen 36 mg/dl (8-23); Gamma Glutamyl Transpeptidase 31 U/L (8-61); Uric Acid 8.6 mg/dL (2.5-8.0)
[2018-03-31] MEDS: BUDESONIDE 0.5 MG/2 ML AMPUL.NEB NEB SCH ×3 (07:00→22:39)
[2018-03-31] MEDS: INSULIN LISPRO 1 UNIT/0.01 ML UNIT SQ SCH ×4 (07:45→20:47)
[2018-03-31] MEDS: INSULIN GLARGINE, HUMAN 1 UNIT/0.01 ML SQ SCH ×2 (07:47→22:28)
[2018-03-31] MEDS: NEUTRA PHOS 1 PACKET PO SCH ×2 (07:59→22:33)
[2018-03-31] MEDS: ENOXAPARIN 40 MG/0.4 ML SYRINGE SQ SCH (08:01)
[2018-03-31] MEDS: FUROSEMIDE 40 MG/4 ML VIAL IV SCH ×2 (08:01→17:06)
[2018-03-31] MEDS: SUCRALFATE 1 GM TABLET PO SCH ×2 (08:01→22:43)
[2018-03-31] MEDS: FINASTERIDE 5 MG TABLET PO SCH (08:02)
[2018-03-31] MEDS: BACLOFEN 10 MG TABLET PO SCH ×2 (08:02→22:32)
[2018-03-31] MEDS: sitaGLIPtin 100 MG TABLET PO SCH (08:02)
[2018-03-31] MEDS: POTASSIUM CHLORIDE 10 MEQ TABLET PO SCH (08:02)
[2018-03-31] MEDS: LISINOPRIL 20 MG TABLET PO SCH (08:02)
[2018-03-31] MEDS: DOCUSATE SODIUM 100 MG CAPSULE PO SCH ×2 (08:02→22:32)
[2018-03-31] MEDS: ASPIRIN 81 MG TAB.CHEW PO SCH (08:02)
[2018-03-31] MEDS: guaiFENesin 600 MG TAB.SR.12H PO SCH ×2 (08:03→22:32)
[2018-03-31] MEDS: acetaZOLAMIDE 250 MG TABLET PO SCH ×2 (08:03→22:53)
[2018-03-31] MEDS: PREGABALIN 100 MG CAPSULE PO SCH ×2 (08:03→22:47)
[2018-03-31] MEDS: metFORMIN 500 MG TABLET PO SCH ×2 (08:03→17:05)
[2018-03-31] MEDS: CARVEDILOL 12.5 MG TABLET PO SCH ×2 (08:03→17:05)
[2018-03-31] MEDS: Lubiprostone [Amitiza] 24 mcg Cap PO SCH ×2 (08:04→22:57)
[2018-03-31] MEDS: DULoxetine 20 MG CAPSULE PO SCH (08:04)
[2018-03-31] MEDS: PANTOPRAZOLE 40 MG VIAL IV SCH (08:06)
[2018-03-31] MEDS: TRIAMCINOLONE CREAM 0.1% 15G 1 DOSE TUBE TOPICAL SCH ×2 (08:06→22:56)
[2018-03-31] MEDS ORDERED: cefTRIAXone 1 GM VIAL IV SCH (09:00)
[2018-03-31] MEDS ORDERED: METHYLPHENIDATE HCL 10 MG PO SCH (09:00)
[2018-03-31] MEDS ORDERED: MAGNESIUM HYDROXIDE 30 ML ORAL.SUSP PO PRN (09:50)
[2018-03-31] MEDS ORDERED: FLEETS ADULT ENEMA PR PRN (09:50)
[2018-03-31] MEDS ORDERED: DEXTROSE 31 GM ORAL.SUSP PO PRN (09:50)
[2018-03-31] MEDS ORDERED: POLYETHYLENE GLYCOL 3350 17 GM PACKET PO PRN (09:50)
[2018-03-31] MEDS ORDERED: hydrALAZINE 20 MG/ML VIAL IV PRN (09:50)
[2018-03-31] MEDS ORDERED: ALBUTEROL SULFATE 2.5 MG/3 ML NEBULIZER NEB PRN (09:50)
[2018-03-31] MEDS ORDERED: DEXTROSE 50% 50 ML VIAL IV PRN (09:50)
[2018-03-31] MEDS ORDERED: BISACODYL 10 MG SUPP.RECT PR PRN (09:50)
--- NOTE | 2018-03-31 11:09 | Internal Med Progress Note ---
Medical - PN: Subj Patient information: Note initiated : 03/31/18 at 11:04 am Service Date, if different from initiated Date: [] Patient: Dangelo Alvares 62 y/o M admitted on 03/29/18 for shortness of breath. Chief Complaint: [] Interval history: The patient is a 62-year-old male with history of hypertension, sleep apnea, morbid obesity, chronic pain, chronic hypercapnic respiratory failure presents with decreased level of consciousness. History is obtained in reviewing records from transfer, speaking with Dr. borrego and ED staff. The patient is able to provide a small amount of additional history. Apparently the patient had decreased level of consciousness since early afternoon. He presents to the ED some more after 11 PM. Patient arouses, states that he was doing okay today though he did have a fall when he was trying to transfer (uses a wheelchair but can transfer independentlycomplaining of clicking in his right hip). He confirms that he does use CPAP at night for DONNY. He states hes had a cough when queried, producing white in self sputum which seems to be unchanged. When directly asked if he was using more pain meds today he seemed to have knowledge yes, though that was vague. When asked if he is having any abdominal pain he says yes and points to the right flank area. He denies any chest pain. He does feel short of breath. He doesn t think hes been having any fever or feeling feverish. When directly queried he does have complaining of dysuria, there is record of a UA done on 03/21 which is growing group B strep as well as a gram-negative bacillus. He has not been on antibiotics. In the emergency department, initial evaluation reveals ABG with pH 7.16, PCO2 96, PO2 128. Patients being hospitalized the PCU for treatment of acute on chronic hypercapnic respiratory failure. 03/30-patient doing well on BiPAP. Improved shortness of breath, off BiPAP this morning. Able to talk in full sentences. No overnight fever chills or concerns per staff. Persistent elevated sugars around 300. Increase Lantus to 35 twice daily, start phosphorus replacement. ABG improved 7.29/72 from 7.19/ 96. Encephalopathy resolved. Continue as needed BiPAP. Patient has not been able to use outpatient CPAP due to inadequate fit. 03/31-patient doing well. No overnight events. Intermittently on BiPAP. Slept well. Stable labs hemodynamics. Transfer out of ICU. Possible discharge in 24 hours if continues to improve clinically. Continue physical therapy. Nutrition support. - Constitutional Vitals: Vital Signs Temp Pulse Resp BP Pulse Ox 97.6 F 87 17 107/62 99 03/31/18 08:01 03/31/18 09:02 03/31/18 09:45 03/31/18 09:02 03/31/18 09:02 Period Temp Pulse Resp BP Sys/Fink Pulse Ox Last 24 Hr 97.3 F-98.4 F 68-102 11-27 94-180/62-144 88-100 Intake and Output 03/30/18 03/31/18 03/31/18 21:59 05:59 13:59 Intake Total 750 / 750 360 / 360 220 / 220 Output Total 1200 / 1200 100 / 100 0 / 0 Balance -450 / -450 260 / 260 220 / 220 Weight 363 lb 8 oz Intake & Output: Intake & Output 03/30/18 03/31/18 03/31/18 21:59 05:59 13:59 Intake Total 750 / 750 360 / 360 220 / 220 Output Total 1200 / 1200 100 / 100 0 / 0 Balance -450 / -450 260 / 260 220 / 220 Weight 363 lb 8 oz Intake: Oral 750 / 750 360 / 360 220 / 220 Output: Void Amount 1200 / 1200 100 / 100 0 / 0 Other: Meal Dinner Breakfast Percent of Meal Consumed 100% 100% Feeding Ability Independent Urine Appearance Clear Clear Urine Color Bright Yellow Dark Yellow Urine Odor Normal Normal Stool Color Brown Stool Consistency Soft Formed # Voids 1 General appearance: morbidly obese, no acute distress Exam: Alert oriented Nonlabored breathing nondistended abdomen No anxiety Medical - PN: Obj Da - Labs CBC & Chem 7: 03/31/18 04:12 03/31/18 04:12 Labs: Abnormal Lab Results 03/31/18 03/31/18 03/30/18 04:12 04:12 04:10 WBC Hgb 13.4 L Hct MCHC 30.8 L RDW 18.3 H Gran % Lymph % (Auto) Gran # Lymph # (Auto) Seg Neutrophils % RBC Morphology Anisocytosis Potassium Chloride Carbon Dioxide BUN 36 H 32 H Glucose 198 H 307 H Uric Acid 8.6 H 9.3 H Phosphorus 2.1 L Alkaline Phosphatase NT-Pro-B Natriuret Pep Albumin 2.9 L 2.9 L Globulin Albumin/Globulin Ratio 0.8 L 0.9 L Triglycerides 185 H 170 H 03/30/18 03/29/18 03/29/18 04:10 08:33 04:00 WBC Hgb 12.7 L Hct 40.7 L MCHC RDW 16.9 H Gran % Lymph % (Auto) Gran # Lymph # (Auto) Seg Neutrophils % RBC Morphology Anisocytosis Potassium Chloride Carbon Dioxide 31 H BUN 37 H Glucose 281 H Uric Acid Phosphorus Alkaline Phosphatase NT-Pro-B Natriuret Pep 381.4 H Albumin Globulin Albumin/Globulin Ratio Triglycerides 03/29/18 03/28/18 03/28/18 04:00 23:30 23:30 WBC 11.2 H Hgb 12.6 L Hct MCHC 30.3 L 29.6 L RDW 17.7 H 18.1 H Gran % 79.2 H Lymph % (Auto) 11.7 L Gran # 8.8 H Lymph # (Auto) 1.3 L Seg Neutrophils % 79 H RBC Morphology Abnorm A Anisocytosis 1+ A Potassium 5.3 H Chloride 95 L Carbon Dioxide 33 H BUN 35 H Glucose 324 H Uric Acid Phosphorus Alkaline Phosphatase 128 H NT-Pro-B Natriuret Pep Albumin Globulin 4.1 H Albumin/Globulin Ratio 0.9 L Triglycerides Meds: Medications Acetaminophen (Tylenol) 650 mg PO Q4-6HP PRN PRN Reason: PAIN/FEVER > 101 Hydrocodone Bitart/Acetaminophen ([place] 5/325mg) 1 tab PO Q4HP PRN PRN Reason: Pain Acetazolamide (Acetazolamide) 250 mg PO BID [facility] Albuterol Sulfate (Ventolin) 2.5 mg NEB Q2HP PRN PRN Reason: Wheezing Albuterol/Ipratropium (Duoneb) 3 ml NEB Q6HRT [facility] Amitriptyline HCl (Elavil) 25 mg PO HS [facility] Aspirin (Aspirin) 81 mg PO DAILY [facility] Baclofen (Lioresal) 10 mg PO BID [facility] Bisacodyl (Dulcolax) 10 mg AR DAILYP PRN PRN Reason: Constipation Budesonide (Pulmicort) 0.5 mg NEB BID [facility] Carvedilol (Coreg) 12.5 mg PO BIDCC [facility] Ceftriaxone Sodium (Rocephin) 1 gm IV DAILY [facility] Ciprofloxacin (Ciloxan 0.3% Ophth Drops) 2 gtt OS Q4 [facility] Dextrose (Dextrose 50%) 0 ml IV UD PRN PRN Reason: Hypoglycemia Diagnostic Test (Pha) (Accu-Chek) 1 each FS ACHS [facility] Docusate Sodium (Colace) 100 mg PO BID [facility] Duloxetine HCl (Cymbalta) 40 mg PO DAILY [facility] Enoxaparin Sodium (Lovenox) 40 mg SQ DAILY [facility] Finasteride (Proscar) 5 mg PO DAILY [facility] Furosemide (Lasix) 40 mg IV BIDD [facility] Glucose (Insta-Glucose) 15 gm PO PRN PRN PRN Reason: Hypoglycemia Guaifenesin (Mucinex) 600 mg PO BID [facility] Hydralazine HCl (Apresoline) 10 mg IV Q6HP PRN PRN Reason: Hypertension Insulin Glargine (Lantus) 35 unit SQ BID [facility] Insulin Human Lispro (Humalog) 0 unit SQ ACHS [facility]; Protocol Lisinopril (Zestril) 10 mg PO DAILY [facility] Magnesium Hydroxide (Milk Of Magnesia) 30 ml PO DAILYP PRN PRN Reason: Constipation Metformin HCl (Glucophage) 1,000 mg PO BIDCC [facility] Montelukast Sodium (Singular) 10 mg PO HS [facility] Pantoprazole Sodium (Protonix) 40 mg PO QAMAC [facility] Lubiprostone [ (Amitiza] 24 Mcg Cap) 1 dose PO BID [facility] Methylphenidate Hcl ([Ritalin] 10 Mg) 1 dose PO DAILY [facility] Polyethylene Glycol (Miralax) 17 gm PO DAILYP PRN PRN Reason: Constipation Potassium Chloride (Kdur) 10 meq PO QAMCC [facility] Potassium/Phosphorus/Sodium (Neutra Phos) 2 packet PO BID [facility] Stop: 04/01/18 21:01 Pregabalin (Lyrica) 200 mg PO BID [facility] Simvastatin (Zocor) 5 mg PO HS [facility] Sitagliptin Phosphate (Januvia) 100 mg PO DAILY [facility] Sodium Biphosphate/Sodium Phosphate (Fleets Adult) 1 dose [facility] DAILYP PRN PRN Reason: Constipation Sodium Chloride (Saline Flush) 10 ml IV Q8 [facility] Sucralfate (Carafate) 2 gm PO BID [facility] Tamsulosin HCl (Flomax) 0.4 mg PO HS [facility] Trazodone HCl (Desyrel) 50 mg PO HSP PRN PRN Reason: Insomnia Triamcinolone Acetonide (Kenalog Cream 0.1%) 1 dose TOPICAL BID [facility] Medical - PN: A/P - Time Spent With Patient Total time spent is greater than 50% in coordination of care (as documented) at patient's floor/unit and/or counseling patient: 15 - 24 minutes (1) Acute hypercapnic respiratory failure due to obstructive sleep apnea Status: Acute Assessment and plan: Assessment -62-year-old male with chronic hypercapnic respiratory failure, sleep apnea, hypertension presents with decreased level of consciousness, found to have acute on chronic hypercapnia. * Acute on chronic hypercapnic respiratory failure. Back to baseline with continued noninvasive ventilation. Improved ABGs. Transition to medical floor later today * Complicated GBS UTI-continue Rocephin. * Type II DM-poorly controlled with blood sugars around 200 with increased lantus to 35 twice daily/ SSI and sitagliptin * Morbid obesity with DONNY. Continue CPAP * History of CHF-continue home dose diuretics * History of hypertension continue existing medications * DNR * Prophylaxis: Lovenox and SCDs. Plan * Transfer out of ICU * Continue ABX coverage for additional 48 hours * Pre-existing medical condition management as above * Aggressive PT OT * Case management to coordinate discharge plan Current Visit: Yes Medical - PN: Qual - VTE Deep Vein Thrombosis/Pulmonary Embolism Present on Admission: No
[2018-03-31] MEDS: HYDROcodone/APAP 5/325MG TABLET PO PRN ×2 (18:05→22:31)
[2018-03-31] MEDS: ACETAMINOPHEN 325 MG TABLET PO PRN (19:48)
[2018-03-31] MEDS ORDERED: SIMVASTATIN 10 MG TABLET PO SCH (21:00)
[2018-03-31] MEDS ORDERED: AMITRIPTYLINE 25 MG TABLET PO SCH (21:00)
[2018-03-31] MEDS ORDERED: traZODone HCL 50 MG TABLET PO PRN (21:00)
[2018-03-31] MEDS ORDERED: MONTELUKAST 10 MG TABLET PO SCH (21:00)
[2018-03-31] MEDS ORDERED: TAMSULOSIN 0.4 MG CAPSULE PO SCH (21:00)
[2018-04-01] MEDS: CIPROFLOXACIN 0.3% OPHTH DROPS BOTTLE OS SCH ×3 (00:56→08:35)
[2018-04-01] MEDS: IPRATROPIUM/ALBUTEROL 3 ML AMPUL.NEB NEB SCH ×2 (00:57→07:21)
[2018-04-01] MEDS: 0.9 % SODIUM CHLORIDE 10 ML SYRINGE IV SCH ×2 (01:12→05:09)
[2018-04-01] MEDS: ACETAMINOPHEN 325 MG TABLET PO PRN (06:41)
[2018-04-01] MEDS: BUDESONIDE 0.5 MG/2 ML AMPUL.NEB NEB SCH (07:21)
[2018-04-01] MEDS ORDERED: PANTOPRAZOLE 40 MG TABLET PO SCH (07:30)
[2018-04-01] MEDS: INSULIN LISPRO 1 UNIT/0.01 ML UNIT SQ SCH (07:34)
[2018-04-01] MEDS: CARVEDILOL 12.5 MG TABLET PO SCH (07:35)
[2018-04-01] MEDS: metFORMIN 500 MG TABLET PO SCH (07:35)
[2018-04-01] MEDS: FUROSEMIDE 40 MG/4 ML VIAL IV SCH (07:35)
[2018-04-01] MEDS ORDERED: POTASSIUM CHLORIDE 10 MEQ TABLET PO SCH (08:00)
[2018-04-01] MEDS: acetaZOLAMIDE 250 MG TABLET PO SCH (08:36)
[2018-04-01] MEDS: SUCRALFATE 1 GM TABLET PO SCH (08:37)
[2018-04-01] MEDS: BACLOFEN 10 MG TABLET PO SCH (08:37)
[2018-04-01] MEDS: guaiFENesin 600 MG TAB.SR.12H PO SCH (08:37)
[2018-04-01] MEDS: TRIAMCINOLONE CREAM 0.1% 15G 1 DOSE TUBE TOPICAL SCH (08:38)
[2018-04-01] MEDS: DOCUSATE SODIUM 100 MG CAPSULE PO SCH (08:38)
[2018-04-01] MEDS: PREGABALIN 100 MG CAPSULE PO SCH (08:38)
[2018-04-01] MEDS: NEUTRA PHOS 1 PACKET PO SCH (08:39)
[2018-04-01] MEDS: INSULIN GLARGINE, HUMAN 1 UNIT/0.01 ML SQ SCH (08:39)
[2018-04-01] MEDS: Lubiprostone [Amitiza] 24 mcg Cap PO SCH (08:40)
[2018-04-01] MEDS ORDERED: METHYLPHENIDATE HCL 10 MG PO SCH (09:00)
[2018-04-01] MEDS ORDERED: ENOXAPARIN 40 MG/0.4 ML SYRINGE SQ SCH (09:00)
[2018-04-01] MEDS ORDERED: DULoxetine 20 MG CAPSULE PO SCH (09:00)
[2018-04-01] MEDS ORDERED: ASPIRIN 81 MG TAB.CHEW PO SCH (09:00)
[2018-04-01] MEDS ORDERED: cefTRIAXone 1 GM VIAL IV SCH (09:00)
[2018-04-01] MEDS ORDERED: LISINOPRIL 10 MG TABLET PO SCH (09:00)
[2018-04-01] MEDS ORDERED: sitaGLIPtin 100 MG TABLET PO SCH (09:00)
[2018-04-01] MEDS ORDERED: FINASTERIDE 5 MG TABLET PO SCH (09:00)
[2018-04-01] MEDS: HYDROcodone/APAP 5/325MG TABLET PO PRN (09:39)
--- NOTE | 2018-04-01 10:55 | Discharge Summary ---
Medical - DS: Prov Patient information: Note initiated : 04/01/18 at 10:51 am Service Date, if different from initiated Date: [] Patient: Dangelo Alvares 62 y/o M admitted on 03/29/18 for shortness of breath. Chief Complaint: [] Date of admission: 03/29/18 00:49 Discharge date: 04/01/18 Primary care physician: Nain Hanna Medical - DS: Meds - Discharge Medications Prescriptions: Cefdinir 300 mg PO BID #6 cap Insulin Detemir [Levemir] 35 unit SQ BID #14 vial Active and Home Medications: Home Medications Acetaminophen [Tylenol Extra Strength] 1,000 mg PO Q6H PRN 10/02/15 [History Confirmed 03/28/18 Last Taken 09/10/17 05:53] Bisacodyl [Dulcolax] 10 mg IN DAILYP PRN 10/02/15 [History Confirmed 03/28/18 Last Taken 01/24/16] Carvedilol [Coreg] 12.5 mg PO BIDCC 10/02/15 [History Confirmed 03/28/18 Last Taken 09/13/17 18:50] Docusate Sodium [Colace] 100 mg PO BID 10/02/15 [History Confirmed 03/28/18 Last Taken 09/13/17 18:44] Furosemide [Lasix] 40 mg PO BID 10/02/15 [History Confirmed 03/28/18 Last Taken 09/13/17 18:44] Insulin Aspart [Novolog] 1 unit SQ .COMPLEX 10/02/15 [History Confirmed Last Taken 09/13/17 11:45] Lisinopril [Zestril] 10 mg PO DAILY 10/02/15 [History Confirmed 03/28/18 Last Taken 09/13/17 09:52] Polyethylene Glycol 3350 [Miralax] 17 gm PO DAILYP PRN 10/02/15 [History Confirmed 03/28/18 Last Taken 01/24/16] Potassium Chloride 10 meq PO DAILY 10/02/15 [History Confirmed 03/28/18 Last Taken 09/13/17 09:50] metFORMIN HCL [Fortamet] 1,000 mg PO BID 10/02/15 [History Confirmed 03/28/18 Last Taken 09/13/17 18:44] Aspirin [Donna Chewable Aspirin] 81 mg PO DAILY 09/13/17 [History Confirmed 06/14 Last Taken 09/13/17 09:52] Budesonide [Pulmicort] 0.5 mg NEB BID 09/13/17 [History Confirmed 03/28/18 Last Taken 09/13/17 18:40] Finasteride [Proscar] 5 mg PO DAILY 09/13/17 [History Confirmed 03/28/18 Last Taken 09/13/17 09:52] Ipratropium/Albuterol [Duoneb] 3 ml NEB Q6HRT 09/13/17 [History Confirmed Last Taken 09/13/17 18:40] Magnesium Hydroxide [Milk of Magnesia] 30 ml PO DAILYP PRN 09/13/17 [History Confirmed 03/28/18 Last Taken Unknown] Montelukast [Singular] 10 mg PO HS 09/13/17 [History Confirmed 03/28/18 Last Taken 09/12/17 19:45] Na Phos,M-B/Na Phos,Di-Ba [Fleets Adult] 1 dose IN DAILYP PRN 09/13/17 [History Confirmed 03/29/18 Last Taken Unknown] Tamsulosin [Flomax] 0.4 mg PO HS 09/13/17 [History Confirmed 03/28/18 Last Taken 09/13/17 18:44] acetaZOLAMIDE [Acetazolamide] 250 mg PO BID 09/13/17 [History Confirmed Last Taken 09/13/17 18:44] Pravastatin Sodium 10 mg PO ONCE 12/04/17 [History Confirmed 03/28/18 Last Taken Unknown] guaiFENesin [Mucinex] 600 mg PO BID 12/04/17 [History Confirmed 03/28/18 Last Taken Unknown] Insulin Aspart [Novolog] 100 unit SQ ACHS #1 ml 12/07/17 [Rx Confirmed 03/28/18 Last Taken Unknown] Miconazole 25 gm MC BID #60 powder 12/07/17 [Rx Confirmed 03/28/18 Last Taken Unknown] Amitriptyline [Elavil] 25 mg PO HS 03/28/18 [History Confirmed 03/28/18 Last Taken Unknown] DULoxetine HCL [Cymbalta] 40 mg PO ONCE 03/28/18 [History Confirmed 03/28/18 Last Taken Unknown] Loperamide HCl [Loperamide] 2 mg PO Q4HP PRN 03/28/18 [History Confirmed Last Taken Unknown] Lubiprostone [Amitiza] 24 mcg PO BID 03/28/18 [History Confirmed 03/28/18 Last Taken Unknown] Methylphenidate HCl [Ritalin] 10 mg PO ONCE 03/28/18 [History Confirmed Last Taken Unknown] Pregabalin [Lyrica] 200 mg PO BID 03/28/18 [History Confirmed 03/28/18 Last Taken Unknown] Sucralfate [Carafate] 2 gm PO BID 03/28/18 [History Confirmed 03/28/18 Last Taken Unknown] traZODone HCL [Trazodone HCl] 50 mg PO ONCE 03/28/18 [History Confirmed Last Taken Unknown] Baclofen [Lioresal] 10 mg PO BID tablet 04/01/18 [Rx Last Taken Unknown] Cefdinir 300 mg PO BID #6 cap 04/01/18 [Rx Last Taken Unknown] HYDROcodone/APAP 5/325MG [[place] 5-325Mg] 1 tab PO Q4HP PRN tablet 04/01/18 [Rx Last Taken Unknown] Insulin Detemir [Levemir] 35 unit SQ BID #14 vial 04/01/18 [Rx Last Taken Unknown] sitaGLIPtin [Januvia] 100 mg PO DAILY tablet 04/01/18 [Rx Last Taken Unknown] Medical - DS: Hosp Hospital course: Discharge diagnosis * Acute on chronic hypercapnic respiratory failure. Likely multifactorial secondary to polypharmacy and poor tolerance to home BiPAP. Back to baseline with continued noninvasive ventilation. Transfer to SNF on home BiPAP. RT to evaluate appropriate fitting BiPAP mask * Complicated GBS UTI-continue additional 3 days Cefdinir. * Type II DM-poorly controlled with blood sugars around 200 with increased lantus to 35 twice daily/ SSI and sitagliptin/metformin * Morbid obesity with DONNY. Continue CPAP * History of CHF-continue diuretics including acetazolamide/Lasix. Continue aspirin/Coreg/ANASTACIO inhibitor/statin * Neuropathy continue duloxetine/amitriptyline/Lyrica * BPH on tamsulosin/finasteride * History of hypertension continue prior medications * Anxiety disorder on trazodone/Cymbalta Brief hospital course The patient is a 62-year-old male with history of hypertension, sleep apnea, morbid obesity, chronic pain, chronic hypercapnic respiratory failure presents with decreased level of consciousness. History is obtained in reviewing records from transfer, speaking with Dr. borrego and ED staff. The patient is able to provide a small amount of additional history. Apparently the patient had decreased level of consciousness since early afternoon. He presents to the ED some more after 11 PM. Patient arouses, states that he was doing okay today though he did have a fall when he was trying to transfer (uses a wheelchair but can transfer independentlycomplaining of clicking in his right hip). He confirms that he does use CPAP at night for DONNY. He states hes had a cough when queried, producing white in self sputum which seems to be unchanged. When directly asked if he was using more pain meds today he seemed to have knowledge yes, though that was vague. When asked if he is having any abdominal pain he says yes and points to the right flank area. He denies any chest pain. He does feel short of breath. He doesn t think hes been having any fever or feeling feverish. When directly queried he does have complaining of dysuria, there is record of a UA done on 03/21 which is growing group B strep as well as a gram-negative bacillus. He has not been on antibiotics. In the emergency department, initial evaluation reveals ABG with pH 7.16, PCO2 96, PO2 128. Patients being hospitalized the PCU for treatment of acute on chronic hypercapnic respiratory failure. 03/30-patient doing well on BiPAP. Improved shortness of breath, off BiPAP this morning. Able to talk in full sentences. No overnight fever chills or concerns per staff. Persistent elevated sugars around 300. Increase Lantus to 35 twice daily, start phosphorus replacement. ABG improved 7.29/72 from 7.19/ 96. Encephalopathy resolved. Continue as needed BiPAP. Patient has not been able to use outpatient CPAP due to inadequate fit. 03/31-patient doing well. No overnight events. Intermittently on BiPAP. Slept well. Stable labs hemodynamics. Transfer out of ICU. Possible discharge in 24 hours if continues to improve clinically. Continue physical therapy. Nutrition support. 04/01-patient doing a lot better. Alert oriented and normalization of hypercapnic respiratory failure. Continue home BiPAP at SNF. Continue additional 3 days of antibiotics. Follow-up primary care physician on discharge. Detailed instructions as below. Discharge diagnosis: . - Time Spent with Patient Total time spent providing and/or coordinating discharge services: Greater than 30 minutes Medical - DS: Exam - Constitutional Vitals: Vital Signs Temp Pulse Pulse Resp BP BP BP 04/01/18 08:00 97.2 F 80 20 128/76 04/01/18 07:22 74 18 04/01/18 04:00 97.6 F 72 20 110/70 03/31/18 23:00 98.2 F 77 20 126/70 03/31/18 20:00 98.7 F 84 20 130/76 03/31/18 18:26 87 20 03/31/18 16:00 97.1 F 20 142/84 03/31/18 12:55 87 20 03/31/18 12:00 98.2 F 20 118/56 Pulse Ox 04/01/18 08:00 92 04/01/18 07:22 04/01/18 04:00 88 L 03/31/18 23:00 88 L 03/31/18 20:00 95 03/31/18 18:26 03/31/18 16:00 94 03/31/18 12:55 03/31/18 12:00 96 Intake and Output 03/31/18 04/01/18 04/01/18 21:59 05:59 13:59 Intake Total 360 / 360 600 / 600 Output Total 775 / 775 300 / 300 800 / 800 Balance -415 / -415 300 / 300 -800 / -800 Intake: Oral 360 / 360 600 / 600 Output: Urine Catheter Amount 500 / 500 Void Amount 775 / 775 300 / 300 300 / 300 # of times incontinent of urine 0 / 0 Other: Meal HS Snack Breakfast Percent of Meal Consumed 100% 100% Feeding Ability Independent Assist with Tray Set Up Urine Appearance Clear Clear Clear Urine Color Pale Straw Pale Urine Odor Normal Normal Stool Color Brown Stool Consistency Soft # Voids 1 2 Weight 364 lb 8 oz Medical - DS: A/P - Patient/Caregiver Discharge Instructions Activity: increase activity as tolerated Diet: Renal/Consistent Carbs Additional Instructions: Follow-up PCP in 5 days Continue antibiotics for additional 3 days I recommend SNF physician to check CBC BMP UA as a posthospital follow-up in 1 week. oxygen to maintain sats over 90%. Continue home BiPAP at previous settings. Continue aggressive bowel regimen to prevent constipation Continue fall precautions daily weights measurements and take additional 40 mg Lasix for 3 days if weight gain over 4 pounds over baseline or worsening shortness of breath and call primary care physician if inadequate response to Lasix Continue aggressive PT OT evaluation and treatment at SNF. ST eval and treatment if indicated All meals on chair sitting upright at 90 degrees to prevent aspiration Return to ER if worsening fever chills shortness of breath, diarrhea, bleeding Review risk and side effect profile of medications including antibiotics. Side effect may include mild to severe reaction including rash, diarrhea, cdiff and even which can be prevented by close follow-up with PCP and monitoring for side effects Continue consistent carbohydrate diet and activity as advised Discussed importance of medication adherence Please review medication list with patient prior to discharge Please schedule follow-up with PCP/Providers prior to discharge and provide printouts Prescriptions: Cefdinir 300 mg PO BID #6 cap Insulin Detemir [Levemir] 35 unit SQ BID #14 vial - Problem Maintenance (1) Acute hypercapnic respiratory failure due to obstructive sleep apnea Status: Acute - Follow up Plan Follow up with: Nain Hanna MD [Primary Care Provider] - (Please call/schedule hospital follow up to be seen in 1-2 weeks.) Disposition: Xfer SNF Prognosis: Fair Rehab Potential: Fair I certify that the patient requires SNF services: Yes Overall status at discharge: patient is back to baseline Medical - DS: Qual - VTE Deep Vein Thrombosis/Pulmonary Embolism Present on Admission: No
== END 2018-04-01 11:45 | DRG 189 ==
LOC: ED 22:56 → ICU 03-29 00:49 → MEDSUR 03-31 14:21
PROVIDERS: ADMIT Internal Medicine; ATTEND Internal Medicine
CPT/HCPCS: 97162

== ENCOUNTER 2018-04-21 05:37 | Inpatient (IN) ==
[2018-04-21 07:00] LABS: Basophils # (Auto) 0 K/mcL (0.0-0.3); Basophils % (Auto) 0.2 % (0.0-2.0); Eosinophils # (Auto) 0.1 K/mcL (0.0-0.7); Granulocytes % (Auto) 81.8 % (38.0-78.0); Lymphocytes # (Auto) 1.5 K/mcL (1.5-4.8); Lymphocytes % (Auto) 11.4 % (15.5-49.0); Mean Cell Volume 88.1 fL (80.0-100.0); Monocytes # (Auto) 0.7 K/mcL (0.1-0.9); Monocytes % (Auto) 5.6 % (1.0-12.0); Platelet Count 232 K/mcL (140-440); RBC 5.01 M/mcL (4.50-5.90); Red Cell Distribution Width 18.7 % (11.5-14.5)
[2018-04-21 07:01] LABS: Appearance,Urine CLEAR; Bilirubin,Urine NEG (NEG); Color,Urine YELLOW; Glucose,Urine (UA) 50 mg/dL (NEG); Leukocyte Esterase,Urine NEG /uL (NEG); Protein,Urine NEG (NEG); Specific Gravity,Urine 1.015 (1.000-1.035); Urine Blood NEG mg/dL (<0.03); Urobilinogen,Urine NEG (NEG)
[2018-04-21 07:16] LABS: ALT/SGPT 14 U/l (0-40); Albumin 3.7 gm/dL (3.2-5.2); Albumin/Globulin Ratio 0.9 (1.0-2.3); Alkaline Phosphatase 120 U/L (39-117); Blood Urea Nitrogen 25 mg/dl (8-23)
--- NOTE | 2018-04-21 07:36 | Emergency Department Note ---
SOB HPI - General Chief Complaint: Shortness of Breath/Dyspnea Stated Complaint: Short of breath Time Seen by Provider: 04/21/18 07:31 Mode of arrival: EMS - History of Present Illness This patient [facility] with change in mental status.. He usually does use CPAP at night. His PCO2 was 93 days pH of 7.2. We instituted BiPAP. After being on BiPAP for a while he was able to tell me that he felt okay. Chest x-ray is very hard to read but could show infiltrates. This patient has limited interventions on his DNR sheet. - Related Data Home Medications Medication Instructions Recorded Confirmed Acetaminophen [Tylenol Extra 1,000 mg PO Q6H PRN 10/02/15 04/21/18 Strength] Bisacodyl [Dulcolax] 10 mg RI DAILYP PRN 10/02/15 04/21/18 Carvedilol [Coreg] 12.5 mg PO BIDCC 10/02/15 04/21/18 Docusate Sodium [Colace] 100 mg PO BID 10/02/15 04/21/18 Furosemide [Lasix] 40 mg PO BID 10/02/15 04/21/18 Lisinopril [Zestril] 10 mg PO DAILY 10/02/15 04/21/18 Polyethylene Glycol 3350 [Miralax] 17 gm PO DAILYP PRN 10/02/15 04/21/18 Potassium Chloride 10 meq PO DAILY 10/02/15 04/21/18 metFORMIN HCL [Fortamet] 1,000 mg PO BID 10/02/15 04/21/18 Aspirin [Donna Chewable Aspirin] 81 mg PO DAILY 09/13/17 04/21/18 Budesonide [Pulmicort] 0.5 mg NEB BID 09/13/17 04/21/18 Finasteride [Proscar] 5 mg PO DAILY 09/13/17 04/21/18 Ipratropium/Albuterol [Duoneb] 3 ml NEB Q6HRT 09/13/17 04/21/18 Magnesium Hydroxide [Milk of 30 ml PO DAILYP PRN 09/13/17 04/21/18 Magnesia] Montelukast [Singular] 10 mg PO HS 09/13/17 04/21/18 Na Phos,M-B/Na Phos,Di-Ba [Fleets 1 dose RI DAILYP PRN 09/13/17 04/21/18 Adult] Tamsulosin [Flomax] 0.4 mg PO HS 09/13/17 04/21/18 acetaZOLAMIDE [Acetazolamide] 250 mg PO BID 09/13/17 04/21/18 Pravastatin Sodium 10 mg PO ONCE 12/04/17 04/21/18 guaiFENesin [Mucinex] 600 mg PO BID 12/04/17 04/21/18 Amitriptyline [Elavil] 25 mg PO HS 03/28/18 04/21/18 DULoxetine HCL [Cymbalta] 40 mg PO ONCE 03/28/18 04/21/18 Loperamide HCl [Loperamide] 2 mg PO Q4HP PRN 03/28/18 04/21/18 Lubiprostone [Amitiza] 24 mcg PO BID 03/28/18 04/21/18 Methylphenidate HCl [Ritalin] 10 mg PO ONCE 03/28/18 04/21/18 Pregabalin [Lyrica] 200 mg PO BID 03/28/18 04/21/18 Sucralfate [Carafate] 2 gm PO BID 03/28/18 04/21/18 traZODone HCL [Trazodone HCl] 50 mg PO ONCE 03/28/18 04/21/18 Triamcinolone Acetonide 15 gm TP BID 04/21/18 04/21/18 Previous Rx's Medication Instructions Recorded Insulin Aspart [Novolog] 100 unit SQ ACHS #1 ml 12/07/17 Miconazole 25 gm MC BID #60 powder 12/07/17 Baclofen [Lioresal] 10 mg PO BID tablet 04/01/18 HYDROcodone/APAP 5/325MG [[place] 1 tab PO Q4HP PRN tablet 04/01/18 5-325Mg] Insulin Detemir [Levemir] 35 unit SQ BID #14 vial 04/01/18 sitaGLIPtin [Januvia] 100 mg PO DAILY tablet 04/01/18 Allergies Allergy/AdvReac Type Severity Reaction Status Date / Time brimonidine Allergy Unknown Unknown Verified 12/04/17 03:54 gentamicin Allergy Unknown Unknown Verified 12/04/17 03:54 Review of Systems Limitations: ROS unobtainable due to patients medical condition Past Medical History - Past Medical History PMFSH Narrative: Medical History Lumbar disc disease with radiculopathy (Chronic) Medical history: Reports: arthritis, CHF, COPD (acute and chronic respiratory failure with hypercarboxia and hypoxia.), coronary artery disease, DM (Insulin using type II.), glaucoma, hyperlipidemia, hypertension, obesity (Morbid), renal disease (Acute renal failure.), other (BPH. CHRONIC NARCOTICS/CHRONIC PAIN. POLYNEUROPATHY. DONNY-CPAP. CHRONIC CONSTIPATION. ANEMIA. UTI (2016). C02 RETENTION. PNEUMONIA. LUMBAGO. MEMORY DYSFUNCTION. LYMPHEDEMA. INSOMNIA. DRY SYNDROME. VENOUS INSUFFICIENCY.). Denies: CVA, TIA Psychiatric history: Reports: anxiety Surgical history ED: Reports: appendectomy - Social History smoking status: Former smoker Physical Exam Limitations: altered mental status General appearance: in no apparent distress Head: atraumatic, normocephalic Chest: Present: normal inspection Respiratory: Present: normal lung sounds bilaterally Cardiovascular: Present: regular rate, normal rhythm, normal heart sounds Neurological: Present: alert Psychiatric: Present: normal affect Skin: Present: warm Course Vital Signs Temperature 97.5 F 04/21/18 05:39 Pulse Rate 94 H 04/21/18 05:39 Respiratory Rate 25 H 04/21/18 05:39 Blood Pressure 138/107 04/21/18 05:39 Pulse Oximetry (%) 91 04/21/18 05:39 Temperature 97.5 F 04/21/18 05:39 Pulse Rate 88 04/21/18 07:16 Respiratory Rate 18 04/21/18 07:05 Blood Pressure 130/73 04/21/18 07:16 Pulse Oximetry (%) 93 04/21/18 07:16 Shortness of Breath/Dyspnea - [facility] Narrative Medical decision making narrative: This patient is on BiPAP and doing little better he is awake and talking now. Patient will be admitted to the hospital by Dr. Scott. - Lab Data Lab results reviewed: Yes I reviewed the patient's lab results. Result diagrams: 04/21/18 06:21 04/21/18 06:21 Lab Results 04/21/18 04/21/18 04/21/18 Range/Units 06:21 06:21 06:25 WBC 13.3 H (4.5-11.0) K/mcL RBC 5.01 (4.50-5.90) M/mcL Hgb 13.2 L (13.5-16.5) g/dL Hct 44.1 (41.0-55.0) % MCV 88.1 (80.0-100.0) fL MCH 26.4 (26.0-34.0) pg MCHC 30.0 L (31.0-36.0) g/dL RDW 18.7 H (11.5-14.5) % Plt Count 232 (140-440) K/mcL MPV 9.0 (7.4-10.4) fL Gran % 81.8 H (38.0-78.0) % Lymph % (Auto) 11.4 L (15.5-49.0) % [place] % (Auto) 5.6 (1.0-12.0) % Eos % (Auto) 1.0 (0.0-7.0) % Baso % (Auto) 0.2 (0.0-2.0) % Gran # 10.9 H (1.8-8.0) K/mcL Lymph # (Auto) 1.5 (1.5-4.8) K/mcL [place] # (Auto) 0.7 (0.1-0.9) K/mcL Eos # (Auto) 0.1 (0.0-0.7) K/mcL Baso # (Auto) 0 (0.0-0.3) K/mcL Sodium 138 (133-145) mmol/L Potassium 4.3 (3.3-5.1) mmol/L Chloride 97 (96-108) mmol/L Carbon Dioxide 33 H (22-30) mmol/L Anion Gap 8.0 (8-16) BUN 25 H (8-23) mg/dl Creatinine 0.9 (0.7-1.2) mg/dl GFR Calculation 90 Glucose 277 H (70-105) mg/dL Calcium 9.1 (8.6-10.4) mg/dl Total Bilirubin 0.2 (0.0-1.0) mg/dL AST 10 (0-37) U/l ALT 14 (0-40) U/l Alkaline Phosphatase 120 H (39-117) U/L Total Protein 7.6 (5.9-8.4) gm/dL Albumin 3.7 (3.2-5.2) gm/dL Globulin 3.9 H (2.2-3.7) gm/dL Albumin/Globulin Ratio 0.9 L (1.0-2.3) Urine Color Yellow Urine Appearance Clear Urine pH 5.0 (5.0-9.0) Ur Specific [place] 1.015 (1.000-1.035) Urine Protein Neg (NEG) mg/dL Urine Glucose (UA) 50 A (NEG) mg/dL Urine Ketones Neg (NEG) mg/dL Urine Occult Blood Neg (<0.03) mg/dL Urine Nitrate Neg (NEG) Urine Bilirubin Neg (NEG) mg/dL Urine Urobilinogen Neg (NEG) mg/dL Ur Leukocyte Esterase Neg (NEG) /uL Ur Culture Indicated? No - Radiology Data Radiology results reviewed: Yes I reviewed the patient's radiology results. Disposition Pt seen by [employer]/PA only: No Clinical Impression: Acute exacerbation of chronic obstructive airways disease Disposition: Xfer As Inpt ([facility]) Condition: Fair Referrals: Nain Hanna MD [Primary Care Provider] - Time of Disposition: 07:37
[2018-04-21] MEDS ORDERED: IPRATROPIUM/ALBUTEROL 3 ML AMPUL.NEB NEB ONE (07:45)
[2018-04-21 08:14] LABS: proBNP 426.5 pg/ml (0-125)
[2018-04-21] MEDS ORDERED: VANCOMYCIN PER PHARMACY IV SCH (08:59)
[2018-04-21] MEDS ORDERED: ONDANSETRON 4 MG/2 ML VIAL IV PRN (08:59)
[2018-04-21] MEDS ORDERED: ACETAMINOPHEN 325 MG TABLET PO PRN (08:59)
[2018-04-21] MEDS ORDERED: PROMETHAZINE 25 MG/ML VIAL IV PRN (08:59)
[2018-04-21] MEDS ORDERED: NALOXONE HCL 0.4 MG/ML VIAL IV PRN (08:59)
[2018-04-21] MEDS ORDERED: traZODone HCL 50 MG TABLET PO PRN (09:28)
[2018-04-21] MEDS ORDERED: DEXTROSE 50% 50 ML VIAL IV PRN (09:31)
[2018-04-21] MEDS ORDERED: DEXTROSE 31 GM ORAL.SUSP PO PRN (09:31)
--- NOTE | 2018-04-21 09:36 | XRay Report ---
CLINICAL INFORMATION: shortness of breathe COMPARISON: 03/28/2018 FINDINGS: The heart is markedly enlarged, but unchanged. 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 There is also known moderate mediastinal lipomatosis. Mild narrowing of the mid trachea appreciated. The pulmonary vessels are moderately distended, but slightly improved. Bilateral infiltrates/edema have improved with moderate residual bibasilar infiltrate IMPRESSION: 1. Moderate/severe CHF. Improving 2. Moderate improvement in bilateral infiltrates/edema with moderate residual left base small moderate residual right base. Small right lateral pleural effusions improved. 3. Moderate mediastinal widening likely representing a combination of mediastinal fat and, possibly, a thoracic aortic arch aneurysm. Suggest chest CT. It could be performed without intravenous contrast in the event of renal insufficiency Interpreted and Authenticated by: Nguyễn Demarco 04/21/18
[2018-04-21] MEDS: methylPREDNISolone SOD SUCC 125 MG/2 ML VIAL IV SCH ×3 (09:51→21:43)
[2018-04-21] MEDS: HEPARIN 5,000 UNIT/ML VIAL SQ SCH ×2 (09:51→20:58)
[2018-04-21] MEDS: PIPERACILLIN SODIUM/TAZOBACTAM 4.5 GM in DEXTROSE 5% IN WATER 50 ML IV SCH ×4 (09:52→23:31)
[2018-04-21] MEDS: LEVOFLOXACIN 750 MG/150 ML BAG IV SCH (09:52)
[2018-04-21] MEDS: IPRATROPIUM/ALBUTEROL 3 ML AMPUL.NEB NEB SCH ×4 (11:10→23:10)
[2018-04-21] MEDS: POTASSIUM CHLORIDE 10 MEQ TABLET PO SCH (11:36)
[2018-04-21] MEDS: FUROSEMIDE 40 MG/4 ML VIAL IV SCH ×2 (11:36→15:50)
[2018-04-21] MEDS: CARVEDILOL 12.5 MG TABLET PO SCH ×2 (11:36→16:55)
[2018-04-21] MEDS: NYSTATIN POWDER BOTTLE 15GM TOPICAL SCH ×2 (11:37→20:59)
[2018-04-21] MEDS: DULoxetine 20 MG CAPSULE PO SCH (11:37)
[2018-04-21] MEDS: INSULIN GLARGINE, HUMAN 1 UNIT/0.01 ML SQ SCH ×2 (11:37→20:59)
[2018-04-21] MEDS: PREGABALIN 100 MG CAPSULE PO SCH ×2 (11:37→20:59)
[2018-04-21] MEDS: CHLORHEXIDINE GLUCONATE 1 ML ORAL.SOL SWABMOUTH SCH ×2 (11:57→20:59)
[2018-04-21] MEDS ORDERED: VANCOMYCIN 1,500 MG in 0.9 % SODIUM CHLORIDE 500 ML IV SCH (12:00)
[2018-04-21] MEDS ORDERED: diphenhydrAMINE 50 MG/ML VIAL ONE (12:03)
[2018-04-21] MEDS ORDERED: diphenhydrAMINE 50 MG/ML VIAL IV PRN (12:09)
[2018-04-21] MEDS: INSULIN LISPRO 1 UNIT/0.01 ML UNIT SQ SCH ×4 (12:20→22:59)
[2018-04-21] MEDS: 0.9 % SODIUM CHLORIDE 10 ML SYRINGE IV SCH ×2 (13:56→21:43)
[2018-04-21] MEDS ORDERED: SULFAMETHOXAZOLE/TRIMETHOPRIM 1 TABLET PO ONE (14:30)
[2018-04-21 14:50] LABS: ABG Methemoglobin 0.3 % (0.4-1.5); VBG Base Excess 3.1 (-2.0-2.0); VBG HCO3 31.1 mmol/L (24.0-28.0); VBG Oxygen Saturation 92.3 % (40.0-70.0); VBG PH 7.31 U (7.32-7.42); VBG PO2 83 mmHg (25-40); VBG Total CO2 33.1 mmol/L (25.0-29.0)
--- NOTE | 2018-04-21 15:10 | Internal Med History&Physical ---
Medical - H&P: [facility] Patient information: Note initiated : 04/21/18 at 3:07 pm Service Date, if different from initiated Date: [] Patient: Dangelo Alvares a 62 y/o M admitted on 04/21/18 for Short of breath. Chief Complaint: [] History of present illness: Mr. Alvares is a 62 year old M with h/o copd, chf, morbid obesity, efraín, bipap dependent presents to the hospital today for evaluation of shortness of breath and altered mental status noted at the SNF facility. The patient on my evaluation was drowsy/on bipap not responding much to any commands/ He did wake up later, and noted that he was not feeling the air of the cpap ? machine well. He also noted that he was short of breath The patient usually wears 2 L oxgyen, and was brought to the hospital with 3 L oxygen. In the ER the patient was hemodynamically stable. HR 98, 91% on 3L , 130/107. Pt labs showed leucocytosis with wbc 13K, chemistry neg, procalcitoni neg XRay chest shows fanny infiltrates, chf, ards? ABG done showed ph 7.20/pco2 93, Po2 69 on 3 L Patient was given duoneb x 1 and admitted to the hospital for further management. Pt was placed on bipap ROS unobtainable: due to mental status Medical - H&P: PMH Medical history: Medical History obtained from chart review Lumbar disc disease with radiculopathy (Chronic) Morbid obesity dep/anxiety deconditioning uti bph conjunctivitis lbp peripheral neuropathy lymphedema dm gerd copd hypoxia heart failure glaucoma hyperlipidemia chronic pain tremor insomnia efraín Surgical history: unknown Pertinent family history: pt drowsy, unable to provide history Social history: lives in SNF ex smoker as per chart review. Medical - H&P: Meds Home Medications Medication Instructions Recorded Confirmed Type Acetaminophen [Tylenol Extra 1,000 mg PO Q6H PRN 10/02/15 04/21/18 History Strength] Bisacodyl [Dulcolax] 10 mg MI DAILYP PRN 10/02/15 04/21/18 History Carvedilol [Coreg] 12.5 mg PO BIDCC 10/02/15 04/21/18 History Docusate Sodium [Colace] 100 mg PO BID 10/02/15 04/21/18 History Furosemide [Lasix] 40 mg PO BID 10/02/15 04/21/18 History Lisinopril [Zestril] 10 mg PO DAILY 10/02/15 04/21/18 History Polyethylene Glycol 3350 [Miralax] 17 gm PO DAILYP PRN 10/02/15 04/21/18 History Potassium Chloride 10 meq PO DAILY 10/02/15 04/21/18 History metFORMIN HCL [Fortamet] 1,000 mg PO BID 10/02/15 04/21/18 History Aspirin [Donna Chewable Aspirin] 81 mg PO DAILY 09/13/17 04/21/18 History Budesonide [Pulmicort] 0.5 mg NEB BID 09/13/17 04/21/18 History Finasteride [Proscar] 5 mg PO DAILY 09/13/17 04/21/18 History Ipratropium/Albuterol [Duoneb] 3 ml NEB Q6HRT 09/13/17 04/21/18 History Magnesium Hydroxide [Milk of 30 ml PO DAILYP PRN 09/13/17 04/21/18 History Magnesia] Montelukast [Singular] 10 mg PO HS 09/13/17 04/21/18 History Na Phos,M-B/Na Phos,Di-Ba [Fleets 1 dose MI DAILYP PRN 09/13/17 04/21/18 History Adult] Tamsulosin [Flomax] 0.4 mg PO HS 09/13/17 04/21/18 History acetaZOLAMIDE [Acetazolamide] 250 mg PO BID 09/13/17 04/21/18 History Pravastatin Sodium 10 mg PO ONCE 12/04/17 04/21/18 History guaiFENesin [Mucinex] 600 mg PO BID 12/04/17 04/21/18 History Insulin Aspart [Novolog] 100 unit SQ ACHS #1 ml 12/07/17 04/21/18 Rx Miconazole 25 gm MC BID #60 powder 12/07/17 04/21/18 Rx Amitriptyline [Elavil] 25 mg PO HS 03/28/18 04/21/18 History DULoxetine HCL [Cymbalta] 40 mg PO ONCE 03/28/18 04/21/18 History Loperamide HCl [Loperamide] 2 mg PO Q4HP PRN 03/28/18 04/21/18 History Lubiprostone [Amitiza] 24 mcg PO BID 03/28/18 04/21/18 History Methylphenidate HCl [Ritalin] 10 mg PO ONCE 03/28/18 04/21/18 History Pregabalin [Lyrica] 200 mg PO BID 03/28/18 04/21/18 History Sucralfate [Carafate] 2 gm PO BID 03/28/18 04/21/18 History traZODone HCL [Trazodone HCl] 50 mg PO ONCE 03/28/18 04/21/18 History Baclofen [Lioresal] 10 mg PO BID tablet 04/01/18 04/21/18 Rx HYDROcodone/APAP 5/325MG [[place] 1 tab PO Q4HP PRN tablet 04/01/18 04/21/18 Rx 5-325Mg] Insulin Detemir [Levemir] 35 unit SQ BID #14 vial 04/01/18 04/21/18 Rx sitaGLIPtin [Januvia] 100 mg PO DAILY tablet 04/01/18 04/21/18 Rx Triamcinolone Acetonide 15 gm TP BID 04/21/18 04/21/18 History Allergies Allergy/AdvReac Type Severity Reaction Status Date / Time vancomycin Allergy Severe Hives Verified 04/21/18 12:14 brimonidine Allergy Unknown Unknown Verified 12/04/17 03:54 gentamicin Allergy Unknown Unknown Verified 12/04/17 03:54 Medical - H&P: Exam - Constitutional Vitals: Temp Pulse Resp BP Pulse Ox 98.4 F 76 17 166/151 85 L 04/21/18 08:44 04/21/18 14:39 04/21/18 14:39 04/21/18 14:04 04/21/18 12:46 Exam: GENERAL: The patient is a well-developed, well-nourished in no apparent distress. Is drowsy, opens eyes to verbal commands but goes back to sleep. On bipa. morbidly obese VITAL SIGNS: Reviewed and as noted elsewhere. HEENT: Head is normocephalic and atraumatic. Extraocular muscles are intact. Pupils are equal, round, and reactive to light. Nares appeared normal. Mucous membranes are dry . NECK: Normal to inspection, Supple, No lymphadenopathy or thyromegaly. LUNGS: Air entry equal on both sides, decreased air entry bilatreally, prolonged exp phase. HEART: Regular rate and rhythm normal, S1 and S2 heard, no Gallop, S3 or Rub Noted, No Gross murmur heard. Distant heart sounds. ABDOMEN: Soft, distended obese abdomen. EXTREMITIES: No cyanosis, clubbing, rash, lesions , venous stasis bilatreally, fanny edema ++ NEUROLOGIC: Cranial nerves II through XII are grossly intact. Moving all limbs. PSYCHIATRIC: drowsy. SKIN: No ulceration or wounds noted, No jaundice, No rash noted. Medical - H&P: Reslt - Labs CBC & Chem 7: 04/21/18 06:21 04/21/18 06:21 Labs: Short CBC 04/21/18 Range/Units 06:21 WBC 13.3 H (4.5-11.0) K/mcL Hgb 13.2 L (13.5-16.5) g/dL Hct 44.1 (41.0-55.0) % Plt Count 232 (140-440) K/mcL BMP 04/21/18 06:21 Sodium 138 Potassium 4.3 Chloride 97 Carbon Dioxide 33 H BUN 25 H Creatinine 0.9 Glucose 277 H Calcium 9.1 Liver Function 04/21/18 Range/Units 06:21 Total Bilirubin 0.2 (0.0-1.0) mg/dL AST 10 (0-37) U/l ALT 14 (0-40) U/l Alkaline Phosphatase 120 H (39-117) U/L Albumin 3.7 (3.2-5.2) gm/dL Urine 04/21/18 Range/Units 06:25 Urine Color Yellow Urine Appearance Clear Urine pH 5.0 (5.0-9.0) Ur Specific [place] 1.015 (1.000-1.035) Urine Protein Neg (NEG) mg/dL Urine Glucose (UA) 50 A (NEG) mg/dL - ABG Interpretation ABG results: 04/21/18 14:28 ABG Methemoglobin 0.3 L VBG pH 7.31 L VBG pCO2 64.0 H* VBG pO2 83 H VBG HCO3 31.1 H VBG Total CO2 33.1 H VBG O2 Saturation 92.3 H VBG Base Excess 3.1 H Medical - H&P: A/P - Narrative A/P Narrative: A/P Acute on Chr hypoxic and hypercapnic respiratory Failure HCAP pneumonia/Bacterial Congestive heart failure MOrbid obesity Obesity hypoventilating syndrome Acute on chr exacerbation of COPD Diabetes Chr pain HTN HLD GERD Depression Plan Admit to PCU status BIPAP for now, wean off as tolerated IV steroids, duonebs and antibiotics Blood and sputum cultures. IV zosyn and bactrim for now (pt allergic to vancomycin, and linezolid cannot be used due to interactions) Try to obtain settings for cpap/bipap at [facility] IV lasix bid get echo Resume home meds once verified Dose of insulin seems very high, will start with lower dose and see how he responds. Hold pain meds for now/respiratory suppresants. DVT hep sq Carb consistent diet DNR code status. Medical - H&P: Qual - Stroke Symptom Onset Unknown: No - VTE Deep Vein Thrombosis/Pulmonary Embolism Present on Admission: No
[2018-04-21] MEDS ORDERED: hydrALAZINE 20 MG/ML VIAL IV PRN (15:11)
[2018-04-21] MEDS: LISINOPRIL 10 MG TABLET PO SCH (15:16)
[2018-04-21] MEDS ORDERED: HYDROcodone/APAP 5/325MG TABLET PO PRN (15:58)
[2018-04-21] MEDS: BUDESONIDE 0.5 MG/2 ML AMPUL.NEB NEB SCH (19:29)
[2018-04-21] MEDS: acetaZOLAMIDE 250 MG TABLET PO SCH (20:56)
[2018-04-21] MEDS: SULFAMETHOXAZOLE/TRIMETHOPRIM 1 TABLET PO SCH (20:57)
[2018-04-21] MEDS: DOCUSATE SODIUM 100 MG CAPSULE PO SCH (20:57)
[2018-04-21] MEDS: SUCRALFATE 1 GM TABLET PO SCH (20:57)
[2018-04-21] MEDS ORDERED: SIMVASTATIN 10 MG TABLET PO SCH (21:00)
[2018-04-21] MEDS ORDERED: MONTELUKAST 10 MG TABLET PO SCH (21:00)
[2018-04-21] MEDS ORDERED: AMITRIPTYLINE 25 MG TABLET PO SCH (21:00)
[2018-04-21] MEDS ORDERED: TAMSULOSIN 0.4 MG CAPSULE PO SCH (21:00)
[2018-04-21] MEDS ORDERED: INSULIN GLARGINE, HUMAN 1 UNIT/0.01 ML SQ ONE ×2 (22:13→22:55)
[2018-04-21] MEDS ORDERED: INSULIN LISPRO 1 UNIT/0.01 ML UNIT SQ ONE (22:55)
[2018-04-22] MEDS: IPRATROPIUM/ALBUTEROL 3 ML AMPUL.NEB NEB SCH ×7 (03:05→22:58)
[2018-04-22] MEDS: PIPERACILLIN SODIUM/TAZOBACTAM 4.5 GM in DEXTROSE 5% IN WATER 50 ML IV SCH (05:33)
[2018-04-22] MEDS: 0.9 % SODIUM CHLORIDE 10 ML SYRINGE IV SCH ×4 (05:33→23:25)
[2018-04-22] MEDS: methylPREDNISolone SOD SUCC 125 MG/2 ML VIAL IV SCH ×3 (05:33→22:14)
[2018-04-22 05:55] LABS: Basophils # (Auto) 0 K/mcL (0.0-0.3); Basophils % (Auto) 0.1 % (0.0-2.0); Eosinophils # (Auto) 0 K/mcL (0.0-0.7); Eosinophils % (Auto) 0.1 % (0.0-7.0); Granulocytes % (Auto) 87.8 % (38.0-78.0); Lymphocytes # (Auto) 0.9 K/mcL (1.5-4.8); Lymphocytes % (Auto) 9.4 % (15.5-49.0); Mean Cell Volume 86.9 fL (80.0-100.0); Mean Corpuscular HGB Conc 30.6 g/dL (31.0-36.0); Monocytes # (Auto) 0.3 K/mcL (0.1-0.9); Monocytes % (Auto) 2.6 % (1.0-12.0); Platelet Count 222 K/mcL (140-440); Red Cell Distribution Width 17.9 % (11.5-14.5)
[2018-04-22 06:42] LABS: ALT/SGPT 16 U/l (0-40); Albumin 3.6 gm/dL (3.2-5.2); Alkaline Phosphatase 109 U/L (39-117); Bilirubin,Direct < 0.2 mg/dL (0.0-0.3); Blood Urea Nitrogen 26 mg/dl (8-23); Gamma Glutamyl Transpeptidase 32 U/L (8-61); Uric Acid 6.9 mg/dL (2.5-8.0)
[2018-04-22] MEDS: POTASSIUM CHLORIDE 10 MEQ TABLET PO SCH (07:48)
[2018-04-22] MEDS: CARVEDILOL 12.5 MG TABLET PO SCH ×2 (07:48→17:11)
[2018-04-22] MEDS: FUROSEMIDE 40 MG/4 ML VIAL IV SCH ×2 (07:48→16:08)
[2018-04-22] MEDS: INSULIN LISPRO 1 UNIT/0.01 ML UNIT SQ SCH ×6 (07:52→22:15)
[2018-04-22] MEDS: LEVOFLOXACIN 750 MG/150 ML BAG IV SCH (08:13)
[2018-04-22] MEDS ORDERED: ASPIRIN 81 MG TAB.CHEW PO SCH (09:00)
[2018-04-22] MEDS ORDERED: FINASTERIDE 5 MG TABLET PO SCH (09:00)
[2018-04-22] MEDS ORDERED: METHYLPHENIDATE HCL 10 MG PO SCH (09:00)
[2018-04-22] MEDS ORDERED: INSULIN GLARGINE, HUMAN 1 UNIT/0.01 ML SQ SCH (09:00)
[2018-04-22] MEDS: DOCUSATE SODIUM 100 MG CAPSULE PO SCH ×2 (09:04→22:14)
[2018-04-22] MEDS: HEPARIN 5,000 UNIT/ML VIAL SQ SCH ×2 (09:04→22:15)
[2018-04-22] MEDS: SUCRALFATE 1 GM TABLET PO SCH ×2 (09:04→22:09)
[2018-04-22] MEDS: NYSTATIN POWDER BOTTLE 15GM TOPICAL SCH ×2 (09:05→22:18)
[2018-04-22] MEDS: acetaZOLAMIDE 250 MG TABLET PO SCH ×2 (09:05→23:24)
[2018-04-22] MEDS: DULoxetine 20 MG CAPSULE PO SCH (09:05)
[2018-04-22] MEDS: SULFAMETHOXAZOLE/TRIMETHOPRIM 1 TABLET PO SCH (09:05)
[2018-04-22] MEDS: CHLORHEXIDINE GLUCONATE 1 ML ORAL.SOL SWABMOUTH SCH ×2 (09:07→23:25)
[2018-04-22] MEDS: PREGABALIN 100 MG CAPSULE PO SCH ×2 (09:22→22:11)
[2018-04-22] MEDS: LISINOPRIL 10 MG TABLET PO SCH (09:22)
--- NOTE | 2018-04-22 09:29 | XRay Report ---
CLINICAL INFORMATION: chf follow up COMPARISON: 04/21/2018 FINDINGS: Moderate cardiomegaly is unchanged. Moderate mediastinal widening and also unchanged. Pulmonary vessels have, however, return to normal in caliber and peribronchovascular edema has almost totally cleared with minimal residual. There is mild bibasilar airspace disease which has also improved. This likely represents atelectasis or residual infiltrate IMPRESSION: Near complete resolution in CHF with only minimal residual peribronchovascular edema Mild bibasilar airspace disease - likely atelectasis Interpreted and Authenticated by: Nguyễn Demarco 04/22/18
[2018-04-22] MEDS: BUDESONIDE 0.5 MG/2 ML AMPUL.NEB NEB SCH ×2 (10:36→19:10)
[2018-04-22] MEDS ORDERED: HYDROcodone/APAP 5/325MG TABLET PO PRN (10:47)
[2018-04-22] MEDS ORDERED: PROMETHAZINE 25 MG/ML VIAL IV PRN (10:47)
[2018-04-22] MEDS ORDERED: diphenhydrAMINE 50 MG/ML VIAL IV PRN (10:47)
[2018-04-22] MEDS ORDERED: DEXTROSE 31 GM ORAL.SUSP PO PRN (10:47)
[2018-04-22] MEDS ORDERED: DEXTROSE 50% 50 ML VIAL IV PRN (10:47)
[2018-04-22] MEDS ORDERED: ACETAMINOPHEN 325 MG TABLET PO PRN (10:47)
[2018-04-22] MEDS ORDERED: NALOXONE HCL 0.4 MG/ML VIAL IV PRN (10:47)
[2018-04-22] MEDS ORDERED: ONDANSETRON 4 MG/2 ML VIAL IV PRN (10:47)
[2018-04-22] MEDS ORDERED: traZODone HCL 50 MG TABLET PO PRN (10:47)
[2018-04-22] MEDS ORDERED: hydrALAZINE 20 MG/ML VIAL IV PRN (10:47)
[2018-04-22] MEDS: DAPTOmycin 500 MG VIAL IV SCH (11:57)
[2018-04-22] MEDS ORDERED: PIPERACILLIN SODIUM/TAZOBACTAM 4.5 GM in DEXTROSE 5% IN WATER 50 ML IV SCH (12:00)
--- NOTE | 2018-04-22 12:19 | Internal Med Progress Note ---
Medical - PN: Subj Patient information: Note initiated : 04/22/18 at 12:17 pm Service Date, if different from initiated Date: [] Patient: Dangelo Alvares a 62 y/o M admitted on 04/21/18 for Short of breath. Chief Complaint: [] Interval history: Mr. Alvares is a 62 year old M with h/o copd, chf, morbid obesity, efraín, bipap dependent presents to the hospital today for evaluation of shortness of breath and altered mental status noted at the SNF facility. The patient on my evaluation was drowsy/on bipap not responding much to any commands/ He did wake up later, and noted that he was not feeling the air of the cpap ? machine well. He also noted that he was short of breath The patient usually wears 2 L oxgyen, and was brought to the hospital with 3 L oxygen. In the ER the patient was hemodynamically stable. HR 98, 91% on 3L , 130/107. Pt labs showed leucocytosis with wbc 13K, chemistry neg, procalcitoni neg XRay chest shows fanny infiltrates, chf, ards? ABG done showed ph 7.20/pco2 93, Po2 69 on 3 L Patient was given duoneb x 1 and admitted to the hospital for further management. Pt was placed on bipap 04/22 Pt seen examined, feels at baseline, no complaints or concerns. Blood cultures positive 3/4 bottles? gram postive cocci Pt is hemodynamically stable, wbc trending down CXR improving Infectious disease consulted, advised to stop ABX for possible PNA, and start pt on Daptomycin given bactermia, await speication Repeat cultures sent Xfer to med surg status. Echo does not suggest endocarditis.LV function low normal, moderate pulm HTN Pertinent ROS: Denies headache, dizziness Denies chest pain, palpitations Denies cough or shortness of breath Denies abdominal pain, nausea or vomiting. - Constitutional Vitals: Vital Signs Temp Pulse Resp BP Pulse Ox 99.0 F 86 25 H 155/80 95 04/22/18 11:25 04/22/18 11:25 04/22/18 11:25 04/22/18 11:25 04/22/18 11:25 Period Temp Pulse Resp BP Sys/Fink Pulse Ox Last 24 Hr 97.0 F-99.0 F 56-88 13-25 109-183/72-151 85-95 Intake and Output 04/21/18 04/22/18 04/22/18 21:59 05:59 13:59 Intake Total 2350 / 2350 530 / 530 800 / 800 Output Total 1680 / 1680 840 / 840 1160 / 1160 Balance 670 / 670 -310 / -310 -360 / -360 Weight 382 lb Intake & Output: Intake & Output 04/21/18 04/22/18 04/22/18 21:59 05:59 13:59 Intake Total 2350 / 2350 530 / 530 800 / 800 Output Total 1680 / 1680 840 / 840 1160 / 1160 Balance 670 / 670 -310 / -310 -360 / -360 Weight 382 lb Intake: IV 50 / 50 50 / 50 200 / 200 Zosyn 4.5 gm In Dextrose 5% in 50 / 50 50 / 50 50 / 50 Water 50 ml @ 100 mls/hr IV Q6H [facility] Rx#:[id number] Oral 2300 / 2300 480 / 480 600 / 600 Output: Urine Catheter Amount 1680 / 1680 840 / 840 1160 / 1160 Other: Meal Dinner Breakfast Percent of Meal Consumed 75% 100% Urine Appearance Clear Clear Clear Uretheral (Short) Clear Clear Clear Urine Color Light Radha Light Radha Bright Yellow Uretheral (Short) Light Radha Light Radha Pale Urine Odor Normal Stool Size Large Large Stool Color Brown Brown Stool Consistency Soft Soft # Bowel Movements 1 Exam: Constitutional; Afebrile, cooperative, alert, not in distress. morbidly obese Eyes- No icterus, , No periorbital swelling Ears- Ext ear normal, hearing normal to conversation. Neck- Midline trachea, supple Respiratory system: Air Entry equal on both sides, No crackles or wheezing, no rhonchi. Decreased air entry bilaterally CVS- Rate rhythm regular, S1,S2 heard, no gallop, no rub. Abdomen- Soft nontender abdomen, no organomegaly, no tenderness, no guarding or rigidity, [employer]- AOOx3, moving all extremities, no gross focal deficit noted. Medical - PN: Obj Da - Labs CBC & Chem 7: 04/22/18 04:00 04/22/18 04:00 Labs: Abnormal Lab Results 04/22/18 04/22/18 04/21/18 04:00 04:00 14:28 WBC Hgb MCHC 30.6 L RDW 17.9 H Gran % 87.8 H Lymph % (Auto) 9.4 L Gran # 8.9 H Lymph # (Auto) 0.9 L ABG Methemoglobin 0.3 L VBG pH 7.31 L VBG pCO2 64.0 H* VBG pO2 83 H VBG HCO3 31.1 H VBG Total CO2 33.1 H VBG O2 Saturation 92.3 H VBG Base Excess 3.1 H Carboxyhemoglobin 3.6 H Chloride 94 L Carbon Dioxide 32 H BUN 26 H Glucose 333 H Phosphorus 1.7 L Alkaline Phosphatase NT-Pro-B Natriuret Pep Globulin Albumin/Globulin Ratio Urine Glucose (UA) 04/21/18 04/21/18 04/21/18 06:25 06:21 06:21 WBC Hgb MCHC RDW Gran % Lymph % (Auto) Gran # Lymph # (Auto) ABG Methemoglobin VBG pH VBG pCO2 VBG pO2 VBG HCO3 VBG Total CO2 VBG O2 Saturation VBG Base Excess Carboxyhemoglobin Chloride Carbon Dioxide 33 H BUN 25 H Glucose 277 H Phosphorus Alkaline Phosphatase 120 H NT-Pro-B Natriuret Pep 426.5 H Globulin 3.9 H Albumin/Globulin Ratio 0.9 L Urine Glucose (UA) 50 A 04/21/18 06:21 WBC 13.3 H Hgb 13.2 L MCHC 30.0 L RDW 18.7 H Gran % 81.8 H Lymph % (Auto) 11.4 L Gran # 10.9 H Lymph # (Auto) ABG Methemoglobin VBG pH VBG pCO2 VBG pO2 VBG HCO3 VBG Total CO2 VBG O2 Saturation VBG Base Excess Carboxyhemoglobin Chloride Carbon Dioxide BUN Glucose Phosphorus Alkaline Phosphatase NT-Pro-B Natriuret Pep Globulin Albumin/Globulin Ratio Urine Glucose (UA) Meds: Medications Acetaminophen (Tylenol) 650 mg PO Q4-6HP PRN PRN Reason: PAIN/FEVER > 101 Hydrocodone Bitart/Acetaminophen ([place] 5/325mg) 1 tab PO Q8HP PRN PRN Reason: PAIN LEVEL 3-6 Acetazolamide (Acetazolamide) 250 mg PO BID [facility] Albuterol/Ipratropium (Duoneb) 3 ml NEB Q4HRT [facility] Last Admin: 04/22/18 11:18 Dose: Not Given Amitriptyline HCl (Elavil) 25 mg PO HS [facility] Aspirin (Aspirin) 81 mg PO DAILY [facility] Budesonide (Pulmicort) 0.5 mg NEB BID [facility] Carvedilol (Coreg) 12.5 mg PO BIDCC [facility] Chlorhexidine Gluconate (Peridex) 15 ml SWABMOUTH BID [facility] Daptomycin (Cubicin) 1,300 mg IV Q24H [facility] Last Admin: 04/22/18 11:57 Dose: 1,300 mg Dextrose (Dextrose 50%) 0 ml IV UD PRN PRN Reason: Hypoglycemia Diagnostic Test (Pha) (Accu-Chek) 1 each FS ACHS [facility] Last Admin: 04/22/18 11:30 Dose: 1 each Diphenhydramine HCl (Benadryl) 12.5 mg IV Q4HP PRN PRN Reason: Allergic Symptoms Docusate Sodium (Colace) 100 mg PO BID [facility] Duloxetine HCl (Cymbalta) 40 mg PO DAILY [facility] Finasteride (Proscar) 5 mg PO DAILY [facility] Furosemide (Lasix) 40 mg IV BIDD [facility] Glucose (Insta-Glucose) 15 gm PO PRN PRN PRN Reason: Hypoglycemia Heparin Sodium (Porcine) (Heparin) 5,000 unit SQ Q12 [facility] Hydralazine HCl (Apresoline) 10 mg IV Q4-6HP PRN PRN Reason: Hypertension Insulin Glargine (Lantus) 45 unit SQ BID [facility] Insulin Human Lispro (Humalog) 0 unit SQ [facility]; Protocol Last Admin: 04/22/18 11:33 Dose: 20 units Lisinopril (Zestril) 10 mg PO DAILY [facility] Methylprednisolone Sodium Succinate (Solu-Medrol) 62.5 mg IV Q8 [facility] Montelukast Sodium (Singular) 10 mg PO HS [facility] Naloxone HCl (Narcan) 0.1 mg IV Q2MIN PRN PRN Reason: Opiate Reversal Nystatin (Nystatin) 1 dose TOPICAL BID [facility] Ondansetron HCl (Zofran) 4 mg IV Q4-6HP PRN PRN Reason: Nausea And Vomiting Methylphenidate Hcl ([Ritalin] 10 Mg Tab) 1 dose PO DAILY [facility] Potassium Chloride (Kdur) 10 meq PO QAMCC [facility] Pregabalin (Lyrica) 200 mg PO BID [facility] Promethazine HCl (Phenergan) 12.5 mg IV Q4-6HP PRN PRN Reason: Nausea And Vomiting Simvastatin (Zocor) 5 mg PO HS [facility] Sodium Chloride (Saline Flush) 10 ml IV Q8 [facility] Last Admin: 04/22/18 11:59 Dose: 10 ml Sucralfate (Carafate) 2 gm PO BID [facility] Tamsulosin HCl (Flomax) 0.4 mg PO HS [facility] Trazodone HCl (Desyrel) 50 mg PO HSP PRN PRN Reason: Insomnia - ABG Interpretation ABG results: 04/21/18 14:28 ABG Methemoglobin 0.3 L VBG pH 7.31 L VBG pCO2 64.0 H* VBG pO2 83 H VBG HCO3 31.1 H VBG Total CO2 33.1 H VBG O2 Saturation 92.3 H VBG Base Excess 3.1 H Medical - PN: A/P - Time Spent With Patient Total time spent is greater than 50% in coordination of care (as documented) at patient's floor/unit and/or counseling patient: - Narrative A/P Narrative: A/P Gram postive Bacteremia Acute on Chr hypoxic and hypercapnic respiratory Failure Congestive heart failure MOrbid obesity Obesity hypoventilating syndrome Acute on chr exacerbation of COPD Diabetes Chr pain HTN HLD GERD Depression Plan xfer to med surg IV daptomycin for bactermia, repeat cultures sent, await sensitivity, ID consulted CXR is clear, d/c bactrim,levoflox and zosyn (unlikely to be pna) CHF resolved with diuresis. continue with bipap at night, increase dose of lantus to 45units bid to help control glucose switch from iv to oral steroids resume home meds as appropriate. DVT hep sq Carb consistent diet DNR code status. Medical - PN: Qual - Stroke Symptom Onset Unknown: No - VTE Deep Vein Thrombosis/Pulmonary Embolism Present on Admission: No
--- NOTE | 2018-04-22 15:07 | Infectious Disease Consult ---
History of Present Illness Patient information: Note initiated : 04/22/18 at 2:50 pm Service Date, if different from initiated Date: [] Patient: Dangelo Alvares 62 y/o M admitted on 04/21/18 for Short of breath. Chief Complaint: [] Consult date: 04/22/18 Requesting Physician: Vipin Scott Reason for Consult: gram positive bacteremia Chief complaint: I was short of breath History of present illness: 62-year-old man with past medical history pertinent for: Morbid obesity Obesity hypoventilation syndrome COPD: On nocturnal BiPAP Congestive heart failure Psoriasis involving forearm and legs Patient is a resident of [facility] in [facility]. He was transferred on 04/21/18 due to concerns for shortness of breath and altered mental status noted at the [facility]. He was brought to the hospital at 3 L oxygen with O2 sats around 91%, heart rate 98, blood pressure of 130/107. Patient had a white cell count of 13,000 and x-ray showed bilateral infiltrates concerning for heart failure versus acute respiratory distress syndrome. ABG showed pH of 7.2, PCO2 of 93, PaO2 of 69 on 3 L. Due to concerns for pneumonia, blood cultures were also sent. Patient was started on IV Zosyn and IV Vanc. Due to sudden onset of redness and swelling in the arm where Vanco was being administered, it was stopped and patient was switched to oral Bactrim double strength twice daily for MRSA coverage. Today 3 out of 4 bottles came positive for GPC in clusters. ID was consulted. At time of visit, patient reported feeling better. He has been transferred from ICU to regular floor. He denied any fever, chills, nausea, vomiting, diarrhea before admission to the hospital and currently. He endorsed having some chronic skin lesion due to psoriasis. Denied any skin sores. He had very less phlegm on coughing. He expressed strong desire to leave the hospital by tomorrow evening so that he could back [facility] to the [facility]. Review of Systems All systems PM: reviewed and no additional remarkable complaints except as stated Past History Past medical history: Mentioned in HPI Past family history: Not pertinent to current presentation Past social history: Has been living at [facility] in [facility] for last 4 years Medications and Allergies Home Medications Medication Instructions Recorded Confirmed Type Acetaminophen [Tylenol Extra 1,000 mg PO Q6H PRN 10/02/15 04/21/18 History Strength] Bisacodyl [Dulcolax] 10 mg NC DAILYP PRN 10/02/15 04/21/18 History Carvedilol [Coreg] 12.5 mg PO BIDCC 10/02/15 04/21/18 History Docusate Sodium [Colace] 100 mg PO BID 10/02/15 04/21/18 History Furosemide [Lasix] 40 mg PO BID 10/02/15 04/21/18 History Lisinopril [Zestril] 10 mg PO DAILY 10/02/15 04/21/18 History Polyethylene Glycol 3350 [Miralax] 17 gm PO DAILYP PRN 10/02/15 04/21/18 History Potassium Chloride 10 meq PO DAILY 10/02/15 04/21/18 History metFORMIN HCL [Fortamet] 1,000 mg PO BID 10/02/15 04/21/18 History Aspirin [Donna Chewable Aspirin] 81 mg PO DAILY 09/13/17 04/21/18 History Budesonide [Pulmicort] 0.5 mg NEB BID 09/13/17 04/21/18 History Finasteride [Proscar] 5 mg PO DAILY 09/13/17 04/21/18 History Ipratropium/Albuterol [Duoneb] 3 ml NEB Q6HRT 09/13/17 04/21/18 History Magnesium Hydroxide [Milk of 30 ml PO DAILYP PRN 09/13/17 04/21/18 History Magnesia] Montelukast [Singular] 10 mg PO HS 09/13/17 04/21/18 History Na Phos,M-B/Na Phos,Di-Ba [Fleets 1 dose NC DAILYP PRN 09/13/17 04/21/18 History Adult] Tamsulosin [Flomax] 0.4 mg PO HS 09/13/17 04/21/18 History acetaZOLAMIDE [Acetazolamide] 250 mg PO BID 09/13/17 04/21/18 History Pravastatin Sodium 10 mg PO ONCE 12/04/17 04/21/18 History guaiFENesin [Mucinex] 600 mg PO BID 12/04/17 04/21/18 History Insulin Aspart [Novolog] 100 unit SQ ACHS #1 ml 12/07/17 04/21/18 Rx Miconazole 25 gm MC BID #60 powder 12/07/17 04/21/18 Rx Amitriptyline [Elavil] 25 mg PO HS 03/28/18 04/21/18 History DULoxetine HCL [Cymbalta] 40 mg PO ONCE 03/28/18 04/21/18 History Loperamide HCl [Loperamide] 2 mg PO Q4HP PRN 03/28/18 04/21/18 History Lubiprostone [Amitiza] 24 mcg PO BID 03/28/18 04/21/18 History Methylphenidate HCl [Ritalin] 10 mg PO ONCE 03/28/18 04/21/18 History Pregabalin [Lyrica] 200 mg PO BID 03/28/18 04/21/18 History Sucralfate [Carafate] 2 gm PO BID 03/28/18 04/21/18 History traZODone HCL [Trazodone HCl] 50 mg PO ONCE 03/28/18 04/21/18 History Baclofen [Lioresal] 10 mg PO BID tablet 04/01/18 04/21/18 Rx HYDROcodone/APAP 5/325MG [[place] 1 tab PO Q4HP PRN tablet 04/01/18 04/21/18 Rx 5-325Mg] Insulin Detemir [Levemir] 35 unit SQ BID #14 vial 04/01/18 04/21/18 Rx sitaGLIPtin [Januvia] 100 mg PO DAILY tablet 04/01/18 04/21/18 Rx Triamcinolone Acetonide 15 gm TP BID 04/21/18 04/21/18 History Allergies Allergy/AdvReac Type Severity Reaction Status Date / Time vancomycin Allergy Severe Hives Verified 04/21/18 12:14 brimonidine Allergy Unknown Unknown Verified 12/04/17 03:54 gentamicin Allergy Unknown Unknown Verified 12/04/17 03:54 Physical Examination Vital signs: Temp Pulse Resp BP Pulse Ox 37.6 C H 90 21 155/80 95 04/22/18 12:00 04/22/18 12:00 04/22/18 12:00 04/22/18 12:00 04/22/18 12:00 General appearance: no acute distress Eyes pulmonary: nonicteric Effort: mildly labored Auscultation: bilateral: clear (The auscultation is limited by morbid obesity of the patient) Cardiovascular: regular rate and rhythm Gastrointestinal: other (Bowel sounds were difficult to auscultate because of obesity) Integumentary: other (Has skin lesions with scaling mainly over the forearm and legs, no active drainage or ulceration) Extremities: other (Minimal pitting edema) Results - Laboratory Findings CBC and BMP: 04/22/18 04:00 04/22/18 04:00 Abnormal lab findings: Abnormal Labs 04/21/18 04/21/18 04/21/18 06:21 06:21 06:21 WBC 13.3 H Hgb 13.2 L MCHC 30.0 L RDW 18.7 H Gran % 81.8 H Lymph % (Auto) 11.4 L Gran # 10.9 H Lymph # (Auto) ABG Methemoglobin VBG pH VBG pCO2 VBG pO2 VBG HCO3 VBG Total CO2 VBG O2 Saturation VBG Base Excess Carboxyhemoglobin Chloride Carbon Dioxide 33 H BUN 25 H Glucose 277 H Phosphorus Alkaline Phosphatase 120 H NT-Pro-B Natriuret Pep 426.5 H Globulin 3.9 H Albumin/Globulin Ratio 0.9 L Urine Glucose (UA) 04/21/18 04/21/18 04/22/18 06:25 14:28 04:00 WBC Hgb MCHC 30.6 L RDW 17.9 H Gran % 87.8 H Lymph % (Auto) 9.4 L Gran # 8.9 H Lymph # (Auto) 0.9 L ABG Methemoglobin 0.3 L VBG pH 7.31 L VBG pCO2 64.0 H* VBG pO2 83 H VBG HCO3 31.1 H VBG Total CO2 33.1 H VBG O2 Saturation 92.3 H VBG Base Excess 3.1 H Carboxyhemoglobin 3.6 H Chloride Carbon Dioxide BUN Glucose Phosphorus Alkaline Phosphatase NT-Pro-B Natriuret Pep Globulin Albumin/Globulin Ratio Urine Glucose (UA) 50 A 04/22/18 04:00 WBC Hgb MCHC RDW Gran % Lymph % (Auto) Gran # Lymph # (Auto) ABG Methemoglobin VBG pH VBG pCO2 VBG pO2 VBG HCO3 VBG Total CO2 VBG O2 Saturation VBG Base Excess Carboxyhemoglobin Chloride 94 L Carbon Dioxide 32 H BUN 26 H Glucose 333 H Phosphorus 1.7 L Alkaline Phosphatase NT-Pro-B Natriuret Pep Globulin Albumin/Globulin Ratio Urine Glucose (UA) Microbiology: Microbiology 04/21/18 09:33 Blood Blood Culture - Preliminary Gram positive cocci 04/21/18 09:21 Blood Blood Culture - Preliminary Gram positive cocci 04/21/18 10:41 Nose MRSA (PCR) - Final MRSA PCR positive 04/21/18 09:48 Nose - Both Right and Left MRSA (PCR) - Final Assessment and Plan - Narrative A/P Narrative: Assessment: #1 Gram-positive bacteremia: Awaiting final identification and sensitivities Likely source seems to be the skin given patient has psoriasis skin lesions and is colonized with MRSA Given immediate reaction to Vanco there is a concern for red man syndrome. Nevertheless we will start on another antibiotic for gram-positive coverage TTE negative for obvious infective endocarditis #2 hypercapnic respiratory failure secondary to chronic lung disease due to obesity hypoventilation syndrome, COPD Currently recovering #3 psoriasis involving forearm and legs Patient not on any treatment Recommendations: Start IV daptomycin at 8 mg/kg of actual body weight [equals 1376 mg which could be rounded off to 1300 mg] every 24 hours Check baseline CK and then weekly If blood cultures drawn today remain negative by late afternoon tomorrow, a PICC line can be placed with a plan to do a 2-week course of IV daptomycin Will order MRSA decolonization with 2% intranasal mupirocin twice daily and below neck whole body application of 2% chlorhexidine once daily for 5 days Will follow Michael Wesley MD Infectious disease
[2018-04-22] MEDS ORDERED: SIMVASTATIN 10 MG TABLET PO SCH (21:00)
[2018-04-22] MEDS ORDERED: MONTELUKAST 10 MG TABLET PO SCH (21:00)
[2018-04-22] MEDS ORDERED: SULFAMETHOXAZOLE/TRIMETHOPRIM 1 TABLET PO SCH (21:00)
[2018-04-22] MEDS ORDERED: AMITRIPTYLINE 25 MG TABLET PO SCH (21:00)
[2018-04-22] MEDS ORDERED: TAMSULOSIN 0.4 MG CAPSULE PO SCH (21:00)
[2018-04-22] MEDS: MUPIROCIN OINT 2% 22GM TOPICAL SCH (22:07)
[2018-04-22] MEDS: INSULIN GLARGINE, HUMAN 1 UNIT/0.01 ML SQ SCH (22:16)
[2018-04-23] MEDS: IPRATROPIUM/ALBUTEROL 3 ML AMPUL.NEB NEB SCH ×2 (02:42→08:38)
[2018-04-23 05:45] LABS: Basophils # (Auto) 0 K/mcL (0.0-0.3); Basophils % (Auto) 0 % (0.0-2.0); Eosinophils # (Auto) 0 K/mcL (0.0-0.7); Eosinophils % (Auto) 0 % (0.0-7.0); Granulocytes % (Auto) 88.4 % (38.0-78.0); Lymphocytes # (Auto) 1.2 K/mcL (1.5-4.8); Lymphocytes % (Auto) 7.6 % (15.5-49.0); Mean Cell Volume 86.2 fL (80.0-100.0); Mean Corpuscular HGB Conc 30.6 g/dL (31.0-36.0); Monocytes # (Auto) 0.6 K/mcL (0.1-0.9); Platelet Count 243 K/mcL (140-440); RBC 5.23 M/mcL (4.50-5.90); Red Cell Distribution Width 18.3 % (11.5-14.5)
[2018-04-23] MEDS: methylPREDNISolone SOD SUCC 125 MG/2 ML VIAL IV SCH (05:47)
[2018-04-23 06:11] LABS: ALT/SGPT 14 U/l (0-40); Albumin 3.4 gm/dL (3.2-5.2); Albumin/Globulin Ratio 0.9 (1.0-2.3); Alkaline Phosphatase 99 U/L (39-117); Bilirubin,Direct < 0.2 mg/dL (0.0-0.3); Blood Urea Nitrogen 28 mg/dl (8-23); Gamma Glutamyl Transpeptidase 30 U/L (8-61); Uric Acid 6.9 mg/dL (2.5-8.0)
[2018-04-23] MEDS ORDERED: LEVOFLOXACIN 750 MG/150 ML BAG IV SCH (08:00)
[2018-04-23] MEDS ORDERED: predniSONE 20 MG TABLET PO SCH (08:00)
[2018-04-23] MEDS ORDERED: POTASSIUM CHLORIDE 10 MEQ TABLET PO SCH (08:00)
[2018-04-23] MEDS: INSULIN LISPRO 1 UNIT/0.01 ML UNIT SQ SCH ×5 (08:05→11:49)
[2018-04-23] MEDS: 0.9 % SODIUM CHLORIDE 10 ML SYRINGE IV SCH ×2 (08:05→12:52)
[2018-04-23] MEDS: HEPARIN 5,000 UNIT/ML VIAL SQ SCH (08:06)
[2018-04-23] MEDS: INSULIN GLARGINE, HUMAN 1 UNIT/0.01 ML SQ SCH (08:06)
[2018-04-23] MEDS: FUROSEMIDE 40 MG/4 ML VIAL IV SCH (08:06)
[2018-04-23] MEDS: PREGABALIN 100 MG CAPSULE PO SCH (08:07)
[2018-04-23] MEDS: NYSTATIN POWDER BOTTLE 15GM TOPICAL SCH (08:07)
[2018-04-23] MEDS: CARVEDILOL 12.5 MG TABLET PO SCH (08:08)
[2018-04-23] MEDS: DOCUSATE SODIUM 100 MG CAPSULE PO SCH (08:08)
[2018-04-23] MEDS: SUCRALFATE 1 GM TABLET PO SCH (08:08)
[2018-04-23] MEDS: MUPIROCIN OINT 2% 22GM TOPICAL SCH (08:09)
[2018-04-23] MEDS: acetaZOLAMIDE 250 MG TABLET PO SCH (08:09)
[2018-04-23] MEDS: CHLORHEXIDINE GLUCONATE 1 ML ORAL.SOL SWABMOUTH SCH (08:10)
[2018-04-23] MEDS: BUDESONIDE 0.5 MG/2 ML AMPUL.NEB NEB SCH (08:38)
[2018-04-23] MEDS ORDERED: LISINOPRIL 10 MG TABLET PO SCH (09:00)
[2018-04-23] MEDS ORDERED: DULoxetine 20 MG CAPSULE PO SCH (09:00)
[2018-04-23] MEDS ORDERED: METHYLPHENIDATE HCL 10 MG PO SCH (09:00)
[2018-04-23] MEDS ORDERED: ASPIRIN 81 MG TAB.CHEW PO SCH (09:00)
[2018-04-23] MEDS ORDERED: FINASTERIDE 5 MG TABLET PO SCH (09:00)
[2018-04-23] MEDS: DAPTOmycin 500 MG VIAL IV SCH (09:24)
--- NOTE | 2018-04-23 11:44 | Discharge Summary ---
Medical - DS: Prov Patient information: Note initiated : 04/23/18 at 11:37 am Service Date, if different from initiated Date: [] Patient: Dangelo Alvares 62 y/o M admitted on 04/21/18 for Short of breath. Chief Complaint: [] Date of admission: 04/21/18 08:25 Discharge date: 04/23/18 Primary care physician: Nain Hanna Admitting clinician: Vipin Scott Consults: 04/21/18 Consult to Physician [CONS] Stat Comment: Consulting Provider: Vipin Scott Reason For Exam: Physician to Consult 04/22/18 10:35 Consult to Physician [CONS] Routine Comment: bactermia Consulting Provider: Michael Wesley Reason For Exam: Physician to Consult Discharging clinician: Vipin Scott Medical - DS: Meds - Discharge Medications Prescriptions: DAPTOmycin [Cubicin] 1,300 mg IV Q24H #9 vial HYDROcodone/APAP 5/325MG [[place] 5-325Mg] 1 tab PO Q8HP PRN #20 tab PRN Reason: Pain predniSONE [Prednisone] 40 mg PO QAMCC #10 tab Pregabalin [Lyrica] 200 mg PO BID #20 cap Active and Home Medications: Home Medications Acetaminophen [Tylenol Extra Strength] 1,000 mg PO Q6H PRN 10/02/15 [History Confirmed 04/21/18 Last Taken 09/10/17 05:53] Bisacodyl [Dulcolax] [address] DAILYP PRN 10/02/15 [History Confirmed 04/21/18 Last Taken 01/24/16] Carvedilol [Coreg] 12.5 mg PO BIDCC 10/02/15 [History Confirmed 04/21/18 Last Taken 04/20/18 16:00] Docusate Sodium [Colace] 100 mg PO BID 10/02/15 [History Confirmed 04/21/18 Last Taken 04/20/18 16:00] Furosemide [Lasix] 40 mg PO BID 10/02/15 [History Confirmed 04/21/18 Last Taken 04/20/18 16:00] Lisinopril [Zestril] 10 mg PO DAILY 10/02/15 [History Confirmed 04/21/18 Last Taken 04/20/18 06:30] Polyethylene Glycol 3350 [Miralax] 17 gm PO DAILYP PRN 10/02/15 [History Confirmed 04/21/18 Last Taken 01/24/16] Potassium Chloride 10 meq PO DAILY 10/02/15 [History Confirmed 04/21/18 Last Taken 04/20/18 06:25] metFORMIN HCL [Fortamet] 1,000 mg PO BID 10/02/15 [History Confirmed 04/21/18 Last Taken 04/20/18 16:00] Aspirin [Donna Chewable Aspirin] 81 mg PO DAILY 09/13/17 [History Confirmed Last Taken 04/20/18 06:25] Budesonide [Pulmicort] 0.5 mg NEB BID 09/13/17 [History Confirmed 04/21/18 Last Taken 04/21/18 05:00] Finasteride [Proscar] 5 mg PO DAILY 09/13/17 [History Confirmed 04/21/18 Last Taken 04/20/18 06:30] Ipratropium/Albuterol [Duoneb] 3 ml NEB Q6HRT 09/13/17 [History Confirmed Last Taken 04/20/18 17:20] Magnesium Hydroxide [Milk of Magnesia] 30 ml PO DAILYP PRN 09/13/17 [History Confirmed 04/21/18 Last Taken Unknown] Montelukast [Singular] 10 mg PO HS 09/13/17 [History Confirmed 04/21/18 Last Taken 04/20/18 19:50] Na Phos,M-B/Na Phos,Di-Ba [Fleets Adult] [address] DAILYP PRN 09/13/17 [History Confirmed 04/21/18 Last Taken Unknown] Tamsulosin [Flomax] 0.4 mg PO HS 09/13/17 [History Confirmed 04/21/18 Last Taken 04/20/18 19:50] acetaZOLAMIDE [Acetazolamide] 250 mg PO BID 09/13/17 [History Confirmed Last Taken 04/20/18 16:00] Pravastatin Sodium 10 mg PO ONCE 12/04/17 [History Confirmed 04/21/18 Last Taken 04/20/18 06:25] guaiFENesin [Mucinex] 600 mg PO BID 12/04/17 [History Confirmed 04/21/18 Last Taken 04/20/18 18:20] Insulin Aspart [Novolog] 100 unit SQ ACHS #1 ml 12/07/17 [Rx Confirmed 04/21/18 Last Taken 04/20/18 19:50] Miconazole 25 gm MC BID #60 powder 12/07/17 [Rx Confirmed 04/21/18 Last Taken 18:30] Amitriptyline [Elavil] 25 mg PO HS 03/28/18 [History Confirmed 04/21/18 Last Taken 04/20/18 19:50] DULoxetine HCL [Cymbalta] 40 mg PO ONCE 03/28/18 [History Confirmed 04/21/18 Last Taken 04/20/18 20:00] Loperamide HCl [Loperamide] 2 mg PO Q4HP PRN 03/28/18 [History Confirmed Last Taken 04/15/18 01:30] Lubiprostone [Amitiza] 24 mcg PO BID 03/28/18 [History Confirmed 04/21/18 Last Taken 04/20/18 16:00] Methylphenidate HCl [Ritalin] 10 mg PO ONCE 03/28/18 [History Confirmed Last Taken 04/20/18 06:25] Pregabalin [Lyrica] 200 mg PO BID 03/28/18 [History Confirmed 04/21/18 Last Taken 04/20/18 16:00] Sucralfate [Carafate] 2 gm PO BID 03/28/18 [History Confirmed 04/21/18 Last Taken 04/20/18 16:00] traZODone HCL [Trazodone HCl] 50 mg PO ONCE 03/28/18 [History Confirmed Last Taken 04/20/18 23:30] Baclofen [Lioresal] 10 mg PO BID tablet 04/01/18 [Rx Confirmed 04/21/18 Last Taken 04/20/18 16:00] HYDROcodone/APAP 5/325MG [[place] 5-325Mg] 1 tab PO Q4HP PRN tablet 04/01/18 [Rx Confirmed 04/21/18 Last Taken 04/20/18 16:00] Insulin Detemir [Levemir] 35 unit SQ BID #14 vial 04/01/18 [Rx Confirmed Last Taken 12/25/18 16:20] sitaGLIPtin [Januvia] 100 mg PO DAILY tablet 04/01/18 [Rx Confirmed 04/21/18 Last Taken 04/20/18 06:25] Triamcinolone Acetonide 15 gm TP BID 04/21/18 [History Confirmed 04/21/18 Last Taken 04/20/18 23:00] Medical - DS: Hosp Hospital course: Mr. Alvares is a 62 year old M with h/o copd, chf, morbid obesity, efraín, bipap dependent presents to the hospital today for evaluation of shortness of breath and altered mental status noted at the SNF facility. The patient on my evaluation was drowsy/on bipap not responding much to any commands/ He did wake up later, and noted that he was not feeling the air of the cpap ? machine well. He also noted that he was short of breath The patient usually wears 2 L oxgyen, and was brought to the hospital with 3 L oxygen. In the ER the patient was hemodynamically stable. HR 98, 91% on 3L , 130/107. Pt labs showed leucocytosis with wbc 13K, chemistry neg, procalcitoni neg XRay chest shows fanny infiltrates, chf, ards? ABG done showed ph 7.20/pco2 93, Po2 69 on 3 L Patient was given duoneb x 1 and admitted to the hospital for further management. Pt was placed on bipap 04/22 Pt seen examined, feels at baseline, no complaints or concerns. Blood cultures positive 3/4 bottles? gram postive cocci Pt is hemodynamically stable, wbc trending down CXR improving Infectious disease consulted, advised to stop ABX for possible PNA, and start pt on Daptomycin given bactermia, await speication Repeat cultures sent Xfer to med surg status. Echo does not suggest endocarditis.LV function low normal, moderate pulm HTN 04/23 Patient seen examined no acute overnight issues, no new complaints or concerns repeat blood cultures are negative. Mid line placed, to be on daptomycin for total of 10 days, 9 more days after discharge WBC trending up, but is on steroids. D/C back to SNF In Summary This is a 62 yr old morbidly obese man, with copd, chf and efraín/obesity hypoventilation syndrome, who was admitted to the hospital for altered mental status acute on chronic hypoxic and hypercapnic respiratory failure. The chest x-ray initially was suggestive of CHF, pneumonia, atelectasis. Patient was placed on BiPAP, IV steroids duo nebs IV diuretics and broad- spectrum antibiotics. The chest X resolved the next day, making pneumonia unlikely. The patient blood gases also improved with BiPAP. It is very likely that the patient's symptoms were combination of congestive heart failure as well as COPD exacerbation. The patient had blood cultures positive for coag negative staph. Patient is allergic to vancomycin, and therefore is being treated with daptomycin. Infectious disease did evaluate the patient and noted that a 10-day course of antibiotics should be sufficient. Echocardiogram was negative for any evidence of endocarditis. Repeat blood cultures were negative. The [facility] and he will complete a course of 10 days of daptomycin. He will have a CBC done tomorrow and a CK done 1 week from now and the results to be faxed to infectious disease clinic. I have cut back on the amount of hydrocodone the patient is getting from every 4 hours as needed to every 8 hours as needed. Given his fragile respiratory status it would be prudent to avoid use of respiratory depressants as much as possible. Discharge diagnosis: CHF, COPD exacerbation, Bactermia - Time Spent with Patient Total time spent providing and/or coordinating discharge services: Greater than 30 minutes Medical - DS: Exam - Constitutional Vitals: Vital Signs Temp Pulse Pulse Resp BP Pulse Ox 04/23/18 08:39 82 16 04/23/18 06:50 97 F 16 162/98 94 04/23/18 04:00 97.2 F 87 18 144/78 94 04/23/18 00:00 97.8 F 83 20 134/74 94 04/22/18 22:59 87 18 93 04/22/18 19:55 98.8 F 90 22 134/60 91 04/22/18 19:11 83 18 04/22/18 15:49 99.1 F H 92 H 20 147/79 96 04/22/18 15:30 92 H 18 04/22/18 12:00 99.6 F H 90 21 155/80 95 Intake and Output 04/22/18 04/23/18 04/23/18 21:59 05:59 13:59 Intake Total 360 / 360 1500 / 1500 240 / 240 Output Total 1050 / 1050 1100 / 1100 1475 / 1475 Balance -690 / -690 400 / 400 -1235 / -1235 Intake: Oral 360 / 360 1500 / 1500 240 / 240 Output: Urine Catheter Amount 1050 / 1050 Void Amount 1100 / 1100 1475 / 1475 # of times incontinent of urine 0 / 0 0 / 0 Other: Meal Breakfast Breakfast Percent of Meal Consumed 100% 100% Feeding Ability Assist with Tray Set Up Urine Appearance Clear Clear Clear Urine Color Bright Yellow Bright Yellow Bright Yellow Urine Odor Strong Strong # Voids 1 1 Weight 386 lb Additional comments: Constitutional; Afebrile, cooperative, alert, not in distress. Respiratory system: Air Entry equal on both sides, No crackles or wheezing, no rhonchi. CVS- Rate rhythm regular, S1,S2 heard, no gallop, no rub. Abdomen- Soft nontender abdomen, no organomegaly, no tenderness, no guarding or rigidity, TRAIN STARTER- AOOx3, moving all extremities, no gross focal deficit noted. Medical - DS: Data Labs on day of discharge: Labs from last 24 hours 04/23/18 04/23/18 04/22/18 04:20 04:20 04:00 WBC 15.3 H RBC 5.23 Hgb 13.8 Hct 45.1 MCV 86.2 MCH 26.4 MCHC 30.6 L RDW 18.3 H Plt Count 243 MPV 9.2 Gran % 88.4 H Lymph % (Auto) 7.6 L [place] % (Auto) 4.0 Eos % (Auto) 0 Baso % (Auto) 0 Gran # 13.5 H Lymph # (Auto) 1.2 L [place] # (Auto) 0.6 Eos # (Auto) 0 Baso # (Auto) 0 Sodium 133 Potassium 4.1 Chloride 93 L Carbon Dioxide 29 Anion Gap 11.0 BUN 28 H Creatinine 0.9 GFR Calculation 90 Glucose 285 H Uric Acid 6.9 Calcium 8.7 Phosphorus 2.3 L Magnesium 1.9 Total Bilirubin 0.2 Direct Bilirubin < 0.2 GGT 30 AST 12 ALT 14 Alkaline Phosphatase 99 Lactate Dehydrogenase 200 Total Creatine Kinase 32 Total Protein 7.0 Albumin 3.4 Globulin 3.6 Albumin/Globulin Ratio 0.9 L Triglycerides 152 H Preliminary micro results at discharge 04/22/18 10:52 Blood Culture - Preliminary Blood 04/22/18 11:08 Blood Culture - Preliminary Blood 04/21/18 09:33 Blood Culture - Preliminary Blood Coagulase negative staph 12/27/18 04:30 Blood Culture - Preliminary Blood 04/21/18 09:21 Blood Culture - Preliminary Blood Gram positive cocci Medical - DS: A/P - Patient/Caregiver Discharge Instructions Activity: as per physical therapy, increase activity as tolerated Diet: Cardiac, Consistent Carbohydrate Additional Instructions: IV Daptomycin 1300mg via Mid line for 9 more days, 05/02/2018 would be the last day Check CBC on 04/24/2018, fax results to Dr Wesley, Fax No: [phone], Tel . Check CK in 1 week , and fax results to Dr Wesley Take prednisone 40mg daily for 5 more days. Dose of Hydrocodone has been changed from Q4hp, to Q8HP given fragile respiratory status. Follow up with PCP in 1 week MA director/Physician to evaluate the patient CPAP /BIPAP settings, ensure that he is getting adequate tidal volume, He may benefit from a repeat sleep study to further titrate his CPAP/BIPAP, alternatively he may be a candidate for Trilegey bipap device. PCP could consider referral to Pulmonary if needed. - Follow up Plan Follow up with: Nain Hanna MD [Primary Care Provider] - (Please call/schedule hospital follow up.) Disposition: Xfer SNF Prognosis: Fair Rehab Potential: Fair I certify that the patient requires SNF services: Yes Overall status at discharge: patient is progressing back to baseline Medical - DS: Qual - VTE Deep Vein Thrombosis/Pulmonary Embolism Present on Admission: No
[2018-04-23] MEDS ORDERED: 0.9 % SODIUM CHLORIDE 10 ML SYRINGE IV SCH (21:00)
--- NOTE | 2018-04-23 22:26 | Infectious Disease Prog Note ---
Subjective Patient information: Note initiated : 04/23/18 at 10:22 pm Service Date, if different from initiated Date: [] Patient: Dangelo Alvares 62 y/o M admitted on 04/21/18 for Short of breath. Chief Complaint: [] Interval history: Pt reports doing fine except for not being able to sleep and feeling tired. Doesnot specify as to why he can't sleep. Denied any fever, chills, n/v, diarrhea, body aches. Shared with him the plan to do 10 day course of IV antibiotics. Pt voiced understanding. Objective Objective Narrative: ao x 3, in nad no thrush chest difficult to auscultate but seems to have normal breath sounds anteriorly s1 s2 normal mild pedal edema - Vital Signs Vital signs: Vital Signs Temp Pulse Pulse Resp BP Pulse Ox 04/23/18 11:38 36.9 C 92 H 16 154/88 94 04/23/18 08:39 82 16 04/23/18 06:50 36.1 C 16 162/98 94 04/23/18 04:00 36.2 C 87 18 144/78 94 04/23/18 00:00 36.6 C 83 20 134/74 94 04/22/18 22:59 87 18 93 Intake and Output 04/23/18 04/23/18 04/24/18 13:59 21:59 05:59 Intake Total 480 / 480 Output Total 1475 / 1475 Balance -995 / -995 Intake: Oral 480 / 480 Output: Void Amount 1475 / 1475 # of times incontinent of urine 0 / 0 Other: Meal Lunch Percent of Meal Consumed 100% Feeding Ability Independent Urine Appearance Clear Urine Color Bright Yellow Urine Odor Strong # Voids 1 Intake & Output: Intake & Output 04/23/18 04/23/18 04/24/18 13:59 21:59 05:59 Intake Total 480 / 480 Output Total 1475 / 1475 Balance -995 / -995 Intake: Oral 480 / 480 Output: Void Amount 1475 / 1475 # of times incontinent of urine 0 / 0 Other: Meal Lunch Percent of Meal Consumed 100% Feeding Ability Independent Urine Appearance Clear Urine Color Bright Yellow Urine Odor Strong # Voids 1 - Lab 04/23/18 04:20 04/23/18 04:20 Most recent lab results Calcium 8.7 mg/dl (8.6-10.4) 04/23/18 04:20 Phosphorus 2.3 mg/dL (2.7-4.5) L 04/23/18 04:20 Magnesium 1.9 mg/dL (1.6-2.5) 04/23/18 04:20 Microbiology 04/22/18 10:52 Blood Blood Culture - Preliminary 04/22/18 11:08 Blood Blood Culture - Preliminary 04/21/18 09:33 Blood Blood Culture - Preliminary Coagulase negative staph 04/22/18 04:30 Blood Blood Culture - Preliminary 04/21/18 09:21 Blood Blood Culture - Preliminary Gram positive cocci 04/21/18 10:41 Nose MRSA (PCR) - Final MRSA PCR positive 04/21/18 09:48 Nose - Both Right and Left MRSA (PCR) - Final Assessment and Plan - Narrative A/P Narrative: Assessment: #1 CONS bacteremia: repeat Cx from 04/22 NGTD Likely source seems to be the skin given patient has psoriasis skin lesions Given immediate reaction to Vanco there is a concern for red man syndrome. For ease of dosing, currently on Daptomycin TTE negative for obvious infective endocarditis #2 hypercapnic respiratory failure secondary to chronic lung disease due to obesity hypoventilation syndrome, COPD Currently recovering #3 psoriasis involving forearm and legs Patient not on any treatment Recommendations: Continue IV daptomycin at 8 mg/kg of actual body weight [equals 1376 mg which could be rounded off to 1300 mg] every 24 hours, today day 2. will plan for a 10 -day course with stop date of 05/02/18 Check CK one time next week Continue MRSA decolonization with 2% intranasal mupirocin twice daily and below neck whole body application of 2% chlorhexidine once daily for 5 days, today day 2/5 - Pt counselled to seek dermatology care so as to take care of psoriasis lesions and to avoid any future seeding of bloodstream from colonized psoriasis lesions No ID follow up needed Michael Wesley MD Infectious disease
== END 2018-04-23 13:05 | DRG 190 ==
LOC: ED 05:37 → ICU 08:25 → MEDSUR 04-22 12:55
PROVIDERS: ADMIT Internal Medicine; ATTEND Internal Medicine